=== PATIENT | male | born 1955 | race African-American/Black ===

== ENCOUNTER 2017-04-27 18:06 | Emergency (ER) | payer SELFPAY ==
[~2017-04-27] VITALS: Ht 172.7 cm; Wt 99.8 kg
[~2017-04-27 18:06] MED LIST: APIX5TAB PO; ASPI81 PO; ATOR20TA86 PO; FURO20 PO; METO25XL PO; PERCT PO
[2017-04-27] MEDS ORDERED: ATEN25TA PO (19:05)
[2017-04-27 21:07] LABS: BASOPHILS # (AUTO) 0.02 K/uL (0.00-0.20); BASOPHILS % (AUTO) 0.3 % (0.0-2.0); EOSINOPHILS # (AUTO) 0.12 K/uL (0.00-0.70); EOSINOPHILS % (AUTO) 1.55 % (1.0-6.0); HEMOGLOBIN 14.4 g/dL (13.5-17.5); LYMPHOCYTES # (AUTO) 2.2 K/uL (1.0-4.8); LYMPHOCYTES % (AUTO) 28.3 % (22.0-44.0); MEAN CORPUSCULAR HGB CONC 33.5 G/dL (31.0-37.0); MEAN CORPUSCULAR VOLUME 89 fL (80-100); MONOCYTES # (AUTO) 0.7 K/uL (0.1-1.0); MONOCYTES % (AUTO) 8.9 % (2.0-9.0); NEUTROPHILS # (AUTO) 4.7 K/uL (1.8-7.7); PLATELET COUNT (AUTO) 151 K/uL (150-450); RED BLOOD CELL COUNT(AUTO) 4.81 MIL/uL (4.50-5.90); RED CELL DISTRIBUTION WIDTH 15.8 % (11.5-14.5)
[2017-04-27 21:13] LABS: PROTHROMBIN TIME 10.1 SEC (9.4-11.6)
[2017-04-27 21:14] LABS: ANION GAP 8 mmol/L (8-16); CALCIUM, TOTAL 8.7 mg/dL (8.8-10.5); CARBON DIOXIDE 31 mmol/L (22-29); CHLORIDE 101 mmol/L (98-107); CREATININE 1.49 mg/dL (0.60-1.30); GLOMERULAR FILTR. RATE CALC 58 mL/min (>60); GLUCOSE,RANDOM 104 mg/dL (70-110); POTASSIUM 3.7 mmol/L (3.5-5.1); SODIUM SERUM 140 mmol/L (136-145); UREA NITROGEN, BLOOD 28 mg/dL (7-18)
[2017-04-27 21:40] LABS: ALANINE AMINOTRANSFERASE 131 U/L (12-78); ALBUMIN 3.4 g/dL (3.4-5.0); ALKALINE PHOSPHATASE 69 U/L (46-116); BILIRUBIN,TOTAL 0.4 mg/dL (0.1-1.0); CREATINE KINASE MB 1.2 ng/mL (0-5); CREATINE KINASE, TOTAL 121 U/L (39-308); TOTAL PROTEIN, SERUM 7.2 g/dL (6.4-8.2)
[2017-04-27 21:43] LABS: B-TYPE NATRIURETIC PEPTIDE 765 pg/mL (0-100)
[2017-04-27] MEDS ORDERED: FUROSEMIDE 40 MG/4 ML VIAL IVP ONE (21:45)
[2017-04-27] MEDS ORDERED: NITROGLYCERIN 2% (1 GM=INCH) PACKET TP ONE (21:45)
[2017-04-27 21:49] LABS: ASPARTATE AMINOTRANSFERASE 72 U/L (15-37)
[2017-04-27 22:55] LABS: APPEARANCE,URINE CLEAR (CLEAR); BILIRUBIN,URINE NEGATIVE (NEGATIVE); GLUCOSE, URINE (UA) NEGATIVE (NEGATIVE); KETONES,URINE NEGATIVE (NEGATIVE); LEUKOCYTE ESTERASE ,URINE NEGATIVE (NEGATIVE); NITRATE,URINE NEGATIVE (NEGATIVE); OCCULT BLOOD,URINE NEGATIVE (NEGATIVE); PROTEIN,URINE NEGATIVE (NEGATIVE); UROBILINOGEN,URINE 0.2 mg/dL (<=1.0)
[2017-04-28 00:44] VITALS: BP 126/73
== END 2017-04-28 00:53 | disposition home or self-care (01) ==
LOC: EMS 18:07
DX: I11.0 Hypertensive heart disease with heart failure (principal); I50.9 Heart failure, unspecified; E78.00 Pure hypercholesterolemia, unspecified; Z98.890 Other specified postprocedural states; Z79.82 Long term (current) use of aspirin; Z79.899 Other long term (current) drug therapy
CPT/HCPCS: 36415; 71010; 80053; 81003; 82550; 82553; 83880; 84484; 85025; 85610; 85730; 93005; 96374; 99285; J1940

== ENCOUNTER → 2017-12-11 | Outpatient (CLI) | payer OTHER ==
[~2017-12-11] MED LIST changes: -APIX5TAB PO; +ATEN25TA PO; -METO25XL PO
[2017-12-12 14:22] LABS: RUBEOLA (MEASLES) IGG >300.0 AU/mL (Immune >29.9)
[2017-12-13 18:07] LABS: RUBEOLA (MEASLES) IGM <0.80 AU (0.00-0.79)
== END | disposition home or self-care (01) ==
LOC: EMPHLTH 14:17
PROVIDERS: ATTEND Internal Medicine
DX: Z02.1 Encounter for pre-employment examination (principal)
CPT/HCPCS: 86706; 86735; 86762; 86765; 86787

== ENCOUNTER → 2018-02-14 | Outpatient (CLI) | payer OTHER ==
[2018-02-14 10:13] LABS: APPEARANCE,URINE CLEAR (CLEAR); BILIRUBIN,URINE NEGATIVE (NEGATIVE); GLUCOSE, URINE (UA) NEGATIVE (NEGATIVE); KETONES,URINE NEGATIVE (NEGATIVE); LEUKOCYTE ESTERASE ,URINE NEGATIVE (NEGATIVE); NITRATE,URINE NEGATIVE (NEGATIVE); OCCULT BLOOD,URINE NEGATIVE (NEGATIVE)
[2018-02-14 10:21] LABS: BASOPHILS % (AUTO) 0.3 % (0.0-2.0); EOSINOPHILS % (AUTO) 1.2 % (1.0-6.0); HEMATOCRIT 46.1 % (41-53); HEMOGLOBIN 15.4 g/dL (13.5-17.5); LYMPHOCYTES # (AUTO) 2.1 K/uL (1.0-4.8); LYMPHOCYTES % (AUTO) 26.8 % (22.0-44.0); MEAN CORPUSCULAR HEMOGLOBIN 30.6 pg (26.0-34.0); MEAN CORPUSCULAR HGB CONC 33.3 G/dL (31.0-37.0); MEAN CORPUSCULAR VOLUME 92 fL (80-100); MONOCYTES # (AUTO) 0.7 K/uL (0.1-1.0); MONOCYTES % (AUTO) 8.8 % (2.0-9.0); NEUTROPHILS % (AUTO) 62.9 % (40.0-70.0); RED BLOOD CELL COUNT(AUTO) 5.02 MIL/uL (4.50-5.90); RED CELL DISTRIBUTION WIDTH 16.7 % (11.5-14.5)
[2018-02-14 10:26] LABS: HEMOGLOBIN A1C 5.9 % (4.5-6.2)
[2018-02-14 10:31] LABS: PROTEIN,URINE NEGATIVE (NEGATIVE)
[2018-02-14 10:38] LABS: ALBUMIN 3.8 g/dL (3.4-5.0); BILIRUBIN,TOTAL 0.9 mg/dL (0.1-1.0); CALCIUM, TOTAL 8.8 mg/dL (8.8-10.5); CHOL/HDL RATIO 4.4 (4.2-7.3); CREATININE 1.48 mg/dL (0.60-1.30); POTASSIUM 4.1 mmol/L (3.5-5.1); THYROID STIMULATING HORMONE 6.46 uIU/mL (0.36-3.74); TOTAL PROTEIN, SERUM 8.5 g/dL (6.4-8.2)
[2018-02-14 10:45] LABS: PROSTATE SPECIFIC ANTIGEN 2.22 ng/mL (0.00-4.00)
[2018-02-14 10:50] LABS: URIC ACID 7.9 mg/dL (2.6-7.2)
== END | disposition home or self-care (01) ==
LOC: LABPV 07:53
PROVIDERS: ATTEND Internal Medicine
DX: I11.0 Hypertensive heart disease with heart failure (principal); I50.9 Heart failure, unspecified; R94.6 Abnormal results of thyroid function studies; E11.9 Type 2 diabetes mellitus without complications; M25.50 Pain in unspecified joint; E78.00 Pure hypercholesterolemia, unspecified
CPT/HCPCS: 83036; 84153; 84443; 84550

== ENCOUNTER → 2018-02-26 | Outpatient (CLI) | payer OTHER ==
[2018-02-26 10:29] LABS: INR 1.5 (0.9-1.1); PROTHROMBIN TIME 15.8 SEC (9.4-11.6)
== END | disposition home or self-care (01) ==
LOC: LABPV 09:37
PROVIDERS: ATTEND Internal Medicine
DX: Z51.81 Encounter for therapeutic drug level monitoring (principal)

== ENCOUNTER → 2018-03-11 | Outpatient (CLI) | payer OTHER ==
[2018-03-11 11:57] LABS: INR 2.5 (0.9-1.1); PROTHROMBIN TIME 25.2 SEC (9.4-11.6)
== END | disposition home or self-care (01) ==
LOC: LABPV 11:05
PROVIDERS: ATTEND Internal Medicine
DX: Z12.12 Encounter for screening for malignant neoplasm of rectum (principal); I48.1 Persistent atrial fibrillation; Z79.01 Long term (current) use of anticoagulants

== ENCOUNTER → 2018-04-15 | Outpatient (CLI) | payer OTHER ==
[2018-04-15 14:24] LABS: BASOPHILS % (AUTO) 0.4 % (0.0-2.0); EOSINOPHILS % (AUTO) 0.7 % (1.0-6.0); HEMATOCRIT 48.3 % (41-53); LYMPHOCYTES # (AUTO) 1.8 K/uL (1.0-4.8); LYMPHOCYTES % (AUTO) 19.4 % (22.0-44.0); MEAN CORPUSCULAR HEMOGLOBIN 30.6 pg (26.0-34.0); MEAN CORPUSCULAR HGB CONC 33.2 G/dL (31.0-37.0); MEAN CORPUSCULAR VOLUME 92 fL (80-100); MONOCYTES # (AUTO) 0.9 K/uL (0.1-1.0); MONOCYTES % (AUTO) 9.1 % (2.0-9.0); NEUTROPHILS # (AUTO) 6.6 K/uL (1.8-7.7); NEUTROPHILS % (AUTO) 70.4 % (40.0-70.0); PLATELET COUNT (AUTO) 152 K/uL (150-450); RED BLOOD CELL COUNT(AUTO) 5.23 MIL/uL (4.50-5.90); RED CELL DISTRIBUTION WIDTH 14.9 % (11.5-14.5)
[2018-04-15 14:36] LABS: INR 2.6 (0.9-1.1); PROTHROMBIN TIME 26.1 SEC (9.4-11.6)
[2018-04-15 14:51] LABS: ALBUMIN 3.8 g/dL (3.4-5.0); BILIRUBIN,TOTAL 0.8 mg/dL (0.1-1.0); C-REACTIVE PROTEIN QUANT 2.66 mg/dL (0.00-0.30); CALCIUM, TOTAL 8.9 mg/dL (8.8-10.5); CREATININE 1.63 mg/dL (0.60-1.30); POTASSIUM 4.4 mmol/L (3.5-5.1); THYROID STIMULATING HORMONE 2.69 uIU/mL (0.36-3.74); TOTAL PROTEIN, SERUM 8.9 g/dL (6.4-8.2)
[2018-04-15 14:56] LABS: APPEARANCE,URINE CLEAR (CLEAR); GLUCOSE, URINE (UA) NEGATIVE (NEGATIVE); KETONES,URINE TRACE mg/dL (NEGATIVE); LEUKOCYTE ESTERASE ,URINE NEGATIVE (NEGATIVE); NITRATE,URINE NEGATIVE (NEGATIVE); OCCULT BLOOD,URINE SMALL (NEGATIVE); PROTEIN,URINE SEE CONFIRM (NEGATIVE)
[2018-04-15 15:13] LABS: BILIRUBIN,URINE PRELIM. POSITIVE (NEGATIVE)
[2018-04-15 15:21] LABS: URIC ACID 9.2 mg/dL (2.6-7.2)
[2018-04-15 15:38] LABS: SULFOSALICYLIC ACID,URINE 2+ (Negative)
[2018-04-15 15:40] LABS: BACTERIA,URINE Few /HPF (None Seen); MUCUS,URINE Few LPF (None Seen); SQUAMOUS EPITHELIAL CELL,UR Few /LPF (None Seen); WBC,URINE 0-2 /HPF (0-5)
[2018-04-15 15:41] LABS: ERYTHROCYTE SEDIMENTATION RATE 34 MM/HR (0-15)
== END | disposition home or self-care (01) ==
LOC: MSR 11:34
PROVIDERS: ATTEND Internal Medicine
DX: E03.2 Hypothyroidism due to medicaments and other exogenous substances (principal); E78.5 Hyperlipidemia, unspecified; R79.89 Other specified abnormal findings of blood chemistry; I11.0 Hypertensive heart disease with heart failure; I50.22 Chronic systolic (congestive) heart failure; I82.409 Acute embolism and thrombosis of unspecified deep veins of unspecified lower extremity; M79.89 Other specified soft tissue disorders; R60.0 Localized edema
CPT/HCPCS: 84443; 84550; 85651; 86140; 93971

== ENCOUNTER → 2018-05-24 | Outpatient (CLI) | payer OTHER ==
[2018-05-24 10:50] LABS: BASOPHILS % (AUTO) 0.5 % (0.0-2.0); EOSINOPHILS % (AUTO) 0.9 % (1.0-6.0); HEMOGLOBIN 15.8 g/dL (13.5-17.5); LYMPHOCYTES % (AUTO) 27.6 % (22.0-44.0); MEAN CORPUSCULAR HEMOGLOBIN 29.9 pg (26.0-34.0); MEAN CORPUSCULAR VOLUME 91 fL (80-100); MONOCYTES # (AUTO) 0.6 K/uL (0.1-1.0); MONOCYTES % (AUTO) 7.8 % (2.0-9.0); NEUTROPHILS # (AUTO) 4.5 K/uL (1.8-7.7); NEUTROPHILS % (AUTO) 63.2 % (40.0-70.0); RED BLOOD CELL COUNT(AUTO) 5.29 MIL/uL (4.50-5.90); RED CELL DISTRIBUTION WIDTH 14.8 % (11.5-14.5)
[2018-05-24 10:54] LABS: APPEARANCE,URINE CLEAR (CLEAR); BILIRUBIN,URINE NEGATIVE (NEGATIVE); GLUCOSE, URINE (UA) NEGATIVE (NEGATIVE); KETONES,URINE NEGATIVE (NEGATIVE); LEUKOCYTE ESTERASE ,URINE NEGATIVE (NEGATIVE); NITRATE,URINE NEGATIVE (NEGATIVE); OCCULT BLOOD,URINE NEGATIVE (NEGATIVE); PROTEIN,URINE POS 1+ (NEGATIVE)
[2018-05-24 11:01] LABS: INR 2.8 (0.9-1.1); PROTHROMBIN TIME 28.1 SEC (9.4-11.6)
[2018-05-24 11:14] LABS: ALANINE AMINOTRANSFERASE 33 U/L (12-78); ALBUMIN 3.4 g/dL (3.4-5.0); ALKALINE PHOSPHATASE 69 U/L (46-116); ANION GAP 4 mmol/L (8-16); ASPARTATE AMINOTRANSFERASE 28 U/L (15-37); BILIRUBIN,TOTAL 0.7 mg/dL (0.1-1.0); C-REACTIVE PROTEIN QUANT 0.29 mg/dL (0.00-0.30); CARBON DIOXIDE 34 mmol/L (22-29); CHLORIDE 105 mmol/L (98-107); CHOL/HDL RATIO 3.3 (4.2-7.3); CHOLESTEROL 139 mg/dL (131-200); CREATININE 1.22 mg/dL (0.60-1.30); GLOMERULAR FILTR. RATE CALC > 60 mL/min (>60); GLUCOSE,RANDOM 96 mg/dL (70-110); HDL CHOLESTEROL 42 mg/dL (40-60); LDL CHOL (CALC.) 73 mg/dL (0-130); POTASSIUM 4.2 mmol/L (3.5-5.1); SODIUM SERUM 143 mmol/L (136-145); THYROID STIMULATING HORMONE 3.83 uIU/mL (0.36-3.74); TOTAL PROTEIN, SERUM 7.8 g/dL (6.4-8.2); TRIGLYCERIDES 122 mg/dL (15-150); UREA NITROGEN, BLOOD 20 mg/dL (7-18)
[2018-05-24 11:36] LABS: PLATELET COUNT (AUTO) 201 K/uL (150-450); PLATELET MORPHOLOGY COMMENT GIANT PLTS PRESENT
[2018-05-24 11:59] LABS: ERYTHROCYTE SEDIMENTATION RATE 12 MM/HR (0-15)
[2018-05-24 12:35] LABS: BACTERIA,URINE None Seen /HPF (None Seen); RBC,URINE 0-2 /HPF (0-2); SQUAMOUS EPITHELIAL CELL,UR Few /LPF (None Seen); WBC,URINE 0-2 /HPF (0-5)
[2018-05-24 17:55] LABS: URIC ACID 7.7 mg/dL (2.6-7.2)
== END | disposition home or self-care (01) ==
LOC: LABPV 08:09
PROVIDERS: ATTEND Internal Medicine
DX: I13.0 Hypertensive heart and chronic kidney disease with heart failure and stage 1 through stage 4 chronic kidney disease, or unspecified chronic kidney disease (principal); N18.9 Chronic kidney disease, unspecified; I50.22 Chronic systolic (congestive) heart failure; Z79.01 Long term (current) use of anticoagulants; E03.2 Hypothyroidism due to medicaments and other exogenous substances
CPT/HCPCS: 84443; 84550; 85651; 86140

== ENCOUNTER → 2018-07-04 | Outpatient (CLI) | payer OTHER ==
[2018-07-04 14:07] LABS: INR 3.4 (0.9-1.1); PROTHROMBIN TIME 34.1 SEC (9.4-11.6)
[2018-07-04 14:10] LABS: ALANINE AMINOTRANSFERASE 44 U/L (12-78); ALBUMIN 3.4 g/dL (3.4-5.0); ALKALINE PHOSPHATASE 78 U/L (46-116); ANION GAP 8 mmol/L (8-16); ASPARTATE AMINOTRANSFERASE 27 U/L (15-37); BILIRUBIN,TOTAL 0.5 mg/dL (0.1-1.0); CALCIUM, TOTAL 8.6 mg/dL (8.8-10.5); CARBON DIOXIDE 29 mmol/L (22-29); CHLORIDE 108 mmol/L (98-107); CREATININE 1.43 mg/dL (0.60-1.30); GLOMERULAR FILTR. RATE CALC > 60 mL/min (>60); GLUCOSE,RANDOM 94 mg/dL (70-110); POTASSIUM 4.3 mmol/L (3.5-5.1); SODIUM SERUM 145 mmol/L (136-145); TOTAL PROTEIN, SERUM 7.5 g/dL (6.4-8.2); UREA NITROGEN, BLOOD 30 mg/dL (7-18)
== END | disposition home or self-care (01) ==
LOC: LABPV 13:31
PROVIDERS: ATTEND Internal Medicine
DX: E78.5 Hyperlipidemia, unspecified (principal); I48.1 Persistent atrial fibrillation

== ENCOUNTER → 2018-07-25 | Outpatient (CLI) | payer OTHER ==
[2018-07-25 11:23] LABS: PROTHROMBIN TIME 20.2 SEC (9.4-11.6)
[2018-07-25 11:25] LABS: ALANINE AMINOTRANSFERASE 25 U/L (12-78); ALBUMIN 3.6 g/dL (3.4-5.0); ALKALINE PHOSPHATASE 63 U/L (46-116); ANION GAP 10 mmol/L (8-16); ASPARTATE AMINOTRANSFERASE 26 U/L (15-37); BILIRUBIN,TOTAL 0.7 mg/dL (0.1-1.0); CALCIUM, TOTAL 9.3 mg/dL (8.8-10.5); CARBON DIOXIDE 28 mmol/L (22-29); CHLORIDE 105 mmol/L (98-107); GLOMERULAR FILTR. RATE CALC > 60 mL/min (>60); GLUCOSE,RANDOM 102 mg/dL (70-110); POTASSIUM 4.2 mmol/L (3.5-5.1); SODIUM SERUM 143 mmol/L (136-145); TOTAL PROTEIN, SERUM 7.9 g/dL (6.4-8.2); UREA NITROGEN, BLOOD 18 mg/dL (7-18)
== END | disposition home or self-care (01) ==
LOC: LABPV 08:56
PROVIDERS: ATTEND Internal Medicine
DX: I48.1 Persistent atrial fibrillation (principal); R79.89 Other specified abnormal findings of blood chemistry; I13.0 Hypertensive heart and chronic kidney disease with heart failure and stage 1 through stage 4 chronic kidney disease, or unspecified chronic kidney disease; E11.22 Type 2 diabetes mellitus with diabetic chronic kidney disease; N18.9 Chronic kidney disease, unspecified; I50.22 Chronic systolic (congestive) heart failure; Z79.01 Long term (current) use of anticoagulants

== ENCOUNTER → 2018-09-19 | Outpatient (CLI) | payer OTHER ==
[2018-09-19 09:44] LABS: INR 2.9 (0.9-1.1); PROTHROMBIN TIME 28.9 SEC (9.4-11.6)
== END | disposition home or self-care (01) ==
LOC: MSR 08:39
PROVIDERS: ATTEND Internal Medicine
DX: M17.11 Unilateral primary osteoarthritis, right knee (principal); Z79.01 Long term (current) use of anticoagulants

== ENCOUNTER 2019-03-13 09:44 | Inpatient (IN) | payer OTHER ==
[~2019-03-13] VITALS: Ht 175.3 cm; Wt 97.2 kg
[2019-03-13] MEDS ORDERED: WARF5 PO (10:00)
[2019-03-13] MEDS ORDERED: LEVO50 PO (10:00)
[2019-03-13] MEDS ORDERED: AMLO2.5T4 PO (10:00)
[2019-03-13] MEDS ORDERED: METO25 PO (10:00)
[2019-03-13] MEDS ORDERED: LOSA25TA41 PO (10:00)
[2019-03-13 11:08] LABS: BASOPHILS % (AUTO) 0.5 % (0.0-2.0); EOSINOPHILS % (AUTO) 0 % (1.0-6.0); HEMATOCRIT 45.5 % (41-53); HEMOGLOBIN 14.9 g/dL (13.5-17.5); LYMPHOCYTES # (AUTO) 0.5 K/uL (1.0-4.8); LYMPHOCYTES % (AUTO) 3.3 % (22.0-44.0); MEAN CORPUSCULAR HEMOGLOBIN 29.7 pg (26.0-34.0); MEAN CORPUSCULAR HGB CONC 32.7 G/dL (31.0-37.0); MEAN CORPUSCULAR VOLUME 91 fL (80-100); MONOCYTES # (AUTO) 0.5 K/uL (0.1-1.0); MONOCYTES % (AUTO) 3.3 % (2.0-9.0); NEUTROPHILS # (AUTO) 14.6 K/uL (1.8-7.7); RED BLOOD CELL COUNT(AUTO) 5.01 MIL/uL (4.50-5.90); RED CELL DISTRIBUTION WIDTH 15.4 % (11.5-14.5)
[2019-03-13] MEDS ORDERED: SODIUM CHLORIDE 0.9% 2,000 ML IV ONE (11:15)
[2019-03-13 11:22] LABS: NEUTROPHILS % (AUTO) 92.9 % (40.0-70.0)
[2019-03-13] MEDS ORDERED: DILTIAZEM HCL 5 MG/ML 5 ML VIAL IVP ONE (11:30)
[2019-03-13] MEDS ORDERED: DIGOXIN 250 MCG/ML 2 ML AMP IVP ONE ×2 (11:30→15:45)
[2019-03-13] MEDS ORDERED: VANCOMYCIN HCL 1 GM/D5% WATER 200 ML IV ONE (11:30)
[2019-03-13 11:41] LABS: ANION GAP 10 mmol/L (8-16); CALCIUM, TOTAL 8.3 mg/dL (8.8-10.5); CARBON DIOXIDE 27 mmol/L (22-29); CHLORIDE 100 mmol/L (98-107); CREATININE 2.27 mg/dL (0.60-1.30); GLOMERULAR FILTR. RATE CALC 35 mL/min (>60); GLUCOSE,RANDOM 125 mg/dL (70-110); POTASSIUM 3.5 mmol/L (3.5-5.1); SODIUM SERUM 137 mmol/L (136-145)
[2019-03-13] MEDS ORDERED: ACETAMINOPHEN 500 MG TABLET PO ONE (11:45)
[2019-03-13 11:46] LABS: ALANINE AMINOTRANSFERASE 25 U/L (12-78); ALBUMIN 2.7 g/dL (3.4-5.0); ALKALINE PHOSPHATASE 55 U/L (46-116); ASPARTATE AMINOTRANSFERASE 31 U/L (15-37); BILIRUBIN,TOTAL 1.5 mg/dL (0.1-1.0); LIPASE 67 U/L (73-393); TOTAL PROTEIN, SERUM 7.7 g/dL (6.4-8.2); UREA NITROGEN, BLOOD 31 mg/dL (7-18)
[2019-03-13 11:47] LABS: INR 1.2 (0.9-1.1); PROTHROMBIN TIME 12.4 SEC (9.4-11.6)
[2019-03-13 11:49] LABS: B-TYPE NATRIURETIC PEPTIDE 223 pg/mL (0-100)
[2019-03-13 11:51] LABS: LACTIC ACID 2.5 mmol/L (0.4-2.0); PLATELET COUNT (AUTO) 103 K/uL (150-450)
[2019-03-13] MEDS ORDERED: ACETAMINOPHEN 325 MG TABLET PO PRN (13:15)
[2019-03-13] MEDS ORDERED: METOPROLOL TARTRATE 50 MG TABLET PO ONE (13:15)
[2019-03-13] MEDS ORDERED: NITROGLYCERIN 2% (1 GM=INCH) PACKET TP ONE (13:15)
[2019-03-13] MEDS ORDERED: 0.9% SODIUM CHLORIDE 10 ML SYRINGE IVP PRN (13:15)
[2019-03-13] MEDS ORDERED: ONDANSETRON HCL 4 MG/2 ML VIAL IVP PRN (13:15)
[2019-03-13] MEDS ORDERED: PIPERACILLIN/TAZO 3.375 GM/D5W 50 ML IV ONE (13:15)
[2019-03-13 13:24] LABS: APPEARANCE,URINE CLEAR (CLEAR); BILIRUBIN,URINE NEGATIVE (NEGATIVE); GLUCOSE, URINE (UA) NEGATIVE (NEGATIVE); KETONES,URINE NEGATIVE (NEGATIVE); LEUKOCYTE ESTERASE ,URINE NEGATIVE (NEGATIVE); NITRATE,URINE NEGATIVE (NEGATIVE); PH,URINE 5.5 (5.0-8.0); PROTEIN,URINE SEE CONFIRM (NEGATIVE)
[2019-03-13 13:29] LABS: BACTERIA,URINE None Seen /HPF (None Seen); OCCULT BLOOD,URINE SMALL (NEGATIVE); SQUAMOUS EPITHELIAL CELL,UR Rare /LPF (None Seen); SULFOSALICYLIC ACID,URINE 2+ (Negative); WBC,URINE None Seen /HPF (0-5)
[2019-03-13] MEDS ORDERED: METOPROLOL TARTRATE 5 MG/5 ML VIAL IVP ONE ×2 (15:45→18:00)
[2019-03-13] MEDS ORDERED: SODIUM BICARBONATE [ADULT] 8.4% 50 MEQ/50 ML SYRINGE IVP ONE (15:45)
[2019-03-13] MEDS ORDERED: LABETALOL HCL 5 MG/ML 20 ML VIAL IVP ONE (15:45)
[2019-03-13] MEDS ORDERED: SODIUM CHLORIDE 0.9% 1,000 ML IV ONE (16:15)
[2019-03-13] MEDS ORDERED: VECURONIUM BROMIDE 10 MG/VIAL IV ONE (18:13)
[2019-03-13] MEDS ORDERED: DILTIAZEM HCL 60 MG TABLET PO ONE (18:15)
[2019-03-13] MEDS ORDERED: *CLINICAL-WARFARIN SODIUM DOSING CLINICAL ONE (19:30)
[2019-03-13] MEDS ORDERED: ALBUTEROL SULFATE 2.5 MG/0.5 ML NEB SOLUTION NEB PRN ×2 (19:30)
[2019-03-13] MEDS ORDERED: IPRATROPIUM BROMIDE 0.5 MG/2.5 ML NEB SOLUTION NEB PRN ×2 (19:30)
[2019-03-13 19:44] VITALS: BP 152/111
[2019-03-13] MEDS ORDERED: IPRATROPIUM BROMIDE 0.5 MG/2.5 ML NEB SOLUTION NEB SCH (20:00)
[2019-03-13] MEDS ORDERED: ALBUTEROL SULFATE 2.5 MG/0.5 ML NEB SOLUTION NEB SCH (20:00)
[2019-03-13] MEDS ORDERED: WARFARIN SODIUM 5 MG TABLET PO SCH (21:00)
[2019-03-13] MEDS: ALBUTEROL SULFATE 2.5 MG/0.5 ML NEB SOLUTION NEB SCH (21:36)
[2019-03-13] MEDS: IPRATROPIUM BROMIDE 0.5 MG/2.5 ML NEB SOLUTION NEB SCH (21:36)
[2019-03-13] MEDS ORDERED: SODIUM CHLORIDE 0.9% 250 ML IV ONE (22:38)
[2019-03-13] MEDS: PIPERACILLIN/TAZO 3.375 GM/D5W 50 ML IV SCH (22:46)
[2019-03-13] MEDS: MORPHINE SULFATE 2 MG/ML SYRINGE IVP PRN (23:15)
[2019-03-14 00:09] VITALS: BP 155/78
[2019-03-14] MEDS: IPRATROPIUM BROMIDE 0.5 MG/2.5 ML NEB SOLUTION NEB SCH ×4 (01:19→21:18)
[2019-03-14] MEDS: ALBUTEROL SULFATE 2.5 MG/0.5 ML NEB SOLUTION NEB SCH ×4 (01:19→21:18)
[2019-03-14] MEDS: PIPERACILLIN/TAZO 3.375 GM/D5W 50 ML IV SCH ×2 (04:39→10:05)
[2019-03-14] MEDS: MORPHINE SULFATE 2 MG/ML SYRINGE IVP PRN ×2 (04:46→10:17)
[2019-03-14] MEDS: LEVOTHYROXINE SODIUM 100 MCG TABLET PO SCH (06:19)
[2019-03-14 06:23] VITALS: BP 131/82
[2019-03-14 07:50] LABS: BASOPHILS % (AUTO) 0.5 % (0.0-2.0); EOSINOPHILS % (AUTO) 0.1 % (1.0-6.0); HEMATOCRIT 39.1 % (41-53); HEMOGLOBIN 12.8 g/dL (13.5-17.5); LYMPHOCYTES # (AUTO) 0.6 K/uL (1.0-4.8); LYMPHOCYTES % (AUTO) 5.4 % (22.0-44.0); MEAN CORPUSCULAR HEMOGLOBIN 30.1 pg (26.0-34.0); MEAN CORPUSCULAR HGB CONC 32.8 G/dL (31.0-37.0); MEAN CORPUSCULAR VOLUME 92 fL (80-100); MONOCYTES # (AUTO) 0.6 K/uL (0.1-1.0); MONOCYTES % (AUTO) 5.5 % (2.0-9.0); NEUTROPHILS # (AUTO) 10.2 K/uL (1.8-7.7); RED BLOOD CELL COUNT(AUTO) 4.26 MIL/uL (4.50-5.90); RED CELL DISTRIBUTION WIDTH 15.8 % (11.5-14.5)
[2019-03-14 07:52] VITALS: BP 141/95
[2019-03-14 07:54] LABS: NEUTROPHILS % (AUTO) 88.5 % (40.0-70.0); PLATELET COUNT (AUTO) 100 K/uL (150-450)
[2019-03-14 07:58] LABS: CREATININE 1.57 mg/dL (0.60-1.30); MAGNESIUM 1.6 mg/dL (1.80-2.40); POTASSIUM 3.7 mmol/L (3.5-5.1)
[2019-03-14] MEDS ORDERED: VANCOMYCIN HCL 1.25 GM in DEXTROSE 5%-WATER 250 ML IV SCH (08:00)
[2019-03-14 08:05] LABS: INR 1.1 (0.9-1.1); PROTHROMBIN TIME 11.4 SEC (9.4-11.6)
[2019-03-14] MEDS ORDERED: LOSARTAN POTASSIUM 25 MG TABLET PO SCH (09:00)
[2019-03-14] MEDS: ATORVASTATIN CALCIUM 20 MG TABLET PO SCH (10:05)
[2019-03-14] MEDS: METOPROLOL TARTRATE 25 MG TABLET PO SCH (10:05)
[2019-03-14] MEDS: AmLODIPine BESYLATE 2.5 MG TABLET PO SCH (10:05)
[2019-03-14] MEDS: ASPIRIN 81 MG CHEWABLE TABLET PO SCH (10:05)
[2019-03-14] MEDS ORDERED: WARFARIN SODIUM-INR 2.0-3.0-RX DOSING PER PROTOCOL PO PRN (11:15)
[2019-03-14 11:24] VITALS: BP 147/90
[2019-03-14] MEDS ORDERED: ZOLPIDEM TARTRATE 5 MG TABLET PO PRN (11:30)
[2019-03-14] MEDS ORDERED: MAGNESIUM HYDROXIDE SUSPENSION 30 ML UDCUP PO PRN (11:30)
[2019-03-14] MEDS ORDERED: BISACODYL 10 MG RECTAL RECTAL SUPPOSITORY PR PRN (11:30)
[2019-03-14] MEDS ORDERED: MAGNESIUM OXIDE 400 MG TABLET PO ONE (11:30)
[2019-03-14] MEDS ORDERED: ONDANSETRON HCL 4 MG/2 ML VIAL IVP PRN (11:30)
[2019-03-14] MEDS: ACETAMINOPHEN 325 MG TABLET PO PRN ×2 (11:36→20:28)
[2019-03-14] MEDS ORDERED: SODIUM CHLORIDE 0.9% 1,000 ML IV ONE (11:45)
[2019-03-14] MEDS: CefTRIAXone SODIUM 2 GM in DEXTROSE 5%-WATER 50 ML IV SCH (15:26)
[2019-03-14] MEDS ORDERED: WARFARIN SODIUM 7.5 MG TABLET PO SCH (17:00)
[2019-03-14] MEDS: CLINDAMYCIN 900 MG/D5% WATER 50 ML IV SCH ×2 (17:44→23:19)
[2019-03-14 19:53] VITALS: BP 153/92
[2019-03-14] MEDS: DOCUSATE SODIUM 100 MG CAPSULE PO SCH (20:28)
[2019-03-14] MEDS: VANCOMYCIN HCL 1 GM/D5% WATER 200 ML IV SCH (20:30)
[2019-03-14 23:17] VITALS: BP 142/84
[2019-03-15] MEDS: ALBUTEROL SULFATE 2.5 MG/0.5 ML NEB SOLUTION NEB SCH ×4 (02:37→19:52)
[2019-03-15] MEDS: IPRATROPIUM BROMIDE 0.5 MG/2.5 ML NEB SOLUTION NEB SCH ×4 (02:37→19:52)
[2019-03-15] MEDS: CefTRIAXone SODIUM 2 GM in DEXTROSE 5%-WATER 50 ML IV SCH (03:12)
[2019-03-15] MEDS: HYDROCODONE/ACETAMINOPHEN 5-325 MG TABLET PO PRN (03:12)
[2019-03-15 04:25] VITALS: BP 133/76
[2019-03-15] MEDS ORDERED: DIGOXIN 250 MCG/ML 2 ML AMP IVP ONE (04:30)
[2019-03-15] MEDS: MORPHINE SULFATE 2 MG/ML SYRINGE IVP PRN (05:46)
[2019-03-15] MEDS: LEVOTHYROXINE SODIUM 100 MCG TABLET PO SCH (06:46)
[2019-03-15] MEDS: CLINDAMYCIN 900 MG/D5% WATER 50 ML IV SCH ×2 (07:33→15:06)
[2019-03-15 08:00] VITALS: BP 158/104
[2019-03-15] MEDS: PANTOPRAZOLE SODIUM 40 MG DR TABLET PO SCH (08:40)
[2019-03-15] MEDS: AmLODIPine BESYLATE 2.5 MG TABLET PO SCH (08:40)
[2019-03-15] MEDS: DOCUSATE SODIUM 100 MG CAPSULE PO SCH ×2 (08:40→21:00)
[2019-03-15] MEDS: VANCOMYCIN HCL 1 GM/D5% WATER 200 ML IV SCH (08:40)
[2019-03-15] MEDS: ASPIRIN 81 MG CHEWABLE TABLET PO SCH (08:41)
[2019-03-15] MEDS: METOPROLOL TARTRATE 25 MG TABLET PO SCH (08:41)
[2019-03-15] MEDS: ATORVASTATIN CALCIUM 20 MG TABLET PO SCH (08:41)
[2019-03-15 09:31] LABS: BASOPHILS % (AUTO) 0.5 % (0.0-2.0); EOSINOPHILS % (AUTO) 1.2 % (1.0-6.0); HEMATOCRIT 37.5 % (41-53); HEMOGLOBIN 12.5 g/dL (13.5-17.5); LYMPHOCYTES # (AUTO) 0.6 K/uL (1.0-4.8); LYMPHOCYTES % (AUTO) 6.6 % (22.0-44.0); MEAN CORPUSCULAR HEMOGLOBIN 30.1 pg (26.0-34.0); MEAN CORPUSCULAR HGB CONC 33.2 G/dL (31.0-37.0); MEAN CORPUSCULAR VOLUME 91 fL (80-100); MONOCYTES # (AUTO) 0.9 K/uL (0.1-1.0); MONOCYTES % (AUTO) 9.2 % (2.0-9.0); NEUTROPHILS # (AUTO) 8.1 K/uL (1.8-7.7); NEUTROPHILS % (AUTO) 82.5 % (40.0-70.0); PLATELET COUNT (AUTO) 148 K/uL (150-450); RED BLOOD CELL COUNT(AUTO) 4.15 MIL/uL (4.50-5.90); RED CELL DISTRIBUTION WIDTH 15.9 % (11.5-14.5)
[2019-03-15 09:41] LABS: INR 1.8 (0.9-1.1); PROTHROMBIN TIME 18.7 SEC (9.4-11.6)
[2019-03-15 09:44] LABS: ALANINE AMINOTRANSFERASE 23 U/L (12-78); ALBUMIN 1.9 g/dL (3.4-5.0); ALKALINE PHOSPHATASE 61 U/L (46-116); ANION GAP 8 mmol/L (8-16); ASPARTATE AMINOTRANSFERASE 28 U/L (15-37); BILIRUBIN,TOTAL 0.4 mg/dL (0.1-1.0); CALCIUM, TOTAL 7.7 mg/dL (8.8-10.5); CARBON DIOXIDE 27 mmol/L (22-29); CHLORIDE 101 mmol/L (98-107); CREATININE 1.22 mg/dL (0.60-1.30); GLOMERULAR FILTR. RATE CALC > 60 mL/min (>60); GLUCOSE,RANDOM 132 mg/dL (70-110); POTASSIUM 3.6 mmol/L (3.5-5.1); SODIUM SERUM 136 mmol/L (136-145); TOTAL PROTEIN, SERUM 6.5 g/dL (6.4-8.2); UREA NITROGEN, BLOOD 9 mg/dL (7-18)
[2019-03-15] MEDS ORDERED: SODIUM CHLORIDE 0.9% 1,000 ML IV SCH (10:00)
[2019-03-15] MEDS ORDERED: MAGNESIUM SULFATE 2 GM/WATER 50 ML IV PRN (10:00)
[2019-03-15] MEDS ORDERED: MAGNESIUM SULFATE 4 GM/WATER 100 ML IV PRN (10:00)
[2019-03-15] MEDS ORDERED: SODIUM CHLORIDE 0.9% 1,000 ML IV ONE (10:15)
[2019-03-15] MEDS: MAGNESIUM OXIDE 400 MG TABLET PO PRN ×2 (10:52→15:06)
[2019-03-15 11:21] VITALS: BP 130/75
[2019-03-15 11:40] LABS: C-REACTIVE PROTEIN QUANT 19.33 mg/dL (0.00-0.30)
[2019-03-15] MEDS: PENICILLIN G POTASSIUM 4 MILUNITS in DEXTROSE 5%-WATER 100 ML IV SCH ×3 (12:43→21:04)
[2019-03-15 12:45] VITALS: BP 140/82
[2019-03-15] MEDS: METOPROLOL SUCCINATE 50 MG ER TABLET PO SCH (12:49)
[2019-03-15 15:54] VITALS: BP 155/86
[2019-03-15] MEDS ORDERED: WARFARIN SODIUM 2 MG TABLET PO SCH (17:00)
[2019-03-15 20:23] VITALS: BP 136/71
[2019-03-16 00:30] VITALS: BP 151/94
[2019-03-16] MEDS: CLINDAMYCIN 900 MG/D5% WATER 50 ML IV SCH ×4 (00:52→23:19)
[2019-03-16] MEDS: MAGNESIUM OXIDE 400 MG TABLET PO PRN (00:52)
[2019-03-16] MEDS: ACETAMINOPHEN 325 MG TABLET PO PRN ×2 (00:54→20:17)
[2019-03-16] MEDS: PENICILLIN G POTASSIUM 4 MILUNITS in DEXTROSE 5%-WATER 100 ML IV SCH ×6 (01:39→20:16)
[2019-03-16] MEDS: ALBUTEROL SULFATE 2.5 MG/0.5 ML NEB SOLUTION NEB SCH ×4 (02:29→19:46)
[2019-03-16] MEDS: IPRATROPIUM BROMIDE 0.5 MG/2.5 ML NEB SOLUTION NEB SCH ×4 (02:30→19:46)
[2019-03-16 04:30] VITALS: BP 139/98
[2019-03-16] MEDS: LEVOTHYROXINE SODIUM 100 MCG TABLET PO SCH (06:57)
[2019-03-16 08:05] LABS: INR 2.1 (0.9-1.1); PROTHROMBIN TIME 21.4 SEC (9.4-11.6)
[2019-03-16 08:16] LABS: ANION GAP 8 mmol/L (8-16); CALCIUM, TOTAL 8.2 mg/dL (8.8-10.5); CARBON DIOXIDE 30 mmol/L (22-29); CHLORIDE 100 mmol/L (98-107); CREATININE 1.14 mg/dL (0.60-1.30); GLOMERULAR FILTR. RATE CALC > 60 mL/min (>60); GLUCOSE,RANDOM 94 mg/dL (70-110); POTASSIUM 3.5 mmol/L (3.5-5.1); SODIUM SERUM 138 mmol/L (136-145)
[2019-03-16 08:34] LABS: UREA NITROGEN, BLOOD 9 mg/dL (7-18)
[2019-03-16] MEDS ORDERED: METOPROLOL TARTRATE 25 MG TABLET PO SCH (09:00)
[2019-03-16] MEDS: DOCUSATE SODIUM 100 MG CAPSULE PO SCH ×2 (09:00→20:12)
[2019-03-16] MEDS: ATORVASTATIN CALCIUM 20 MG TABLET PO SCH (09:06)
[2019-03-16] MEDS: METOPROLOL SUCCINATE 50 MG ER TABLET PO SCH (09:06)
[2019-03-16] MEDS: ASPIRIN 81 MG CHEWABLE TABLET PO SCH (09:06)
[2019-03-16] MEDS: PANTOPRAZOLE SODIUM 40 MG DR TABLET PO SCH (09:06)
[2019-03-16 09:29] VITALS: BP 162/98
[2019-03-16] MEDS: AmLODIPine BESYLATE 2.5 MG TABLET PO SCH ×2 (14:23→20:16)
[2019-03-16] MEDS: LISINOPRIL 10 MG TABLET PO SCH (14:23)
[2019-03-16 16:06] VITALS: BP 158/99
[2019-03-16] MEDS ORDERED: WARFARIN SODIUM 3 MG TABLET PO ONE (17:00)
[2019-03-16 19:42] VITALS: BP 156/97
[2019-03-16 23:42] VITALS: BP 146/98
[2019-03-17] MEDS: PENICILLIN G POTASSIUM 4 MILUNITS in DEXTROSE 5%-WATER 100 ML IV SCH ×6 (01:31→20:11)
[2019-03-17] MEDS: MORPHINE SULFATE 2 MG/ML SYRINGE IVP PRN (01:40)
[2019-03-17] MEDS: IPRATROPIUM BROMIDE 0.5 MG/2.5 ML NEB SOLUTION NEB SCH ×4 (02:31→19:44)
[2019-03-17] MEDS: ALBUTEROL SULFATE 2.5 MG/0.5 ML NEB SOLUTION NEB SCH ×4 (02:31→19:44)
[2019-03-17] MEDS: LEVOTHYROXINE SODIUM 100 MCG TABLET PO SCH (05:22)
[2019-03-17 07:03] VITALS: BP 165/98
[2019-03-17] MEDS: DOCUSATE SODIUM 100 MG CAPSULE PO SCH ×2 (09:00→20:11)
[2019-03-17] MEDS: LISINOPRIL 10 MG TABLET PO SCH (09:10)
[2019-03-17] MEDS: PANTOPRAZOLE SODIUM 40 MG DR TABLET PO SCH (09:11)
[2019-03-17] MEDS: ASPIRIN 81 MG CHEWABLE TABLET PO SCH (09:11)
[2019-03-17] MEDS: ATORVASTATIN CALCIUM 20 MG TABLET PO SCH (09:11)
[2019-03-17] MEDS: AmLODIPine BESYLATE 2.5 MG TABLET PO SCH ×2 (09:11→20:11)
[2019-03-17] MEDS: METOPROLOL SUCCINATE 50 MG ER TABLET PO SCH (09:11)
[2019-03-17] MEDS: CLINDAMYCIN 900 MG/D5% WATER 50 ML IV SCH ×3 (09:12→23:22)
[2019-03-17 09:38] VITALS: BP 160/110
[2019-03-17 10:49] LABS: BASOPHILS % (AUTO) 0.7 % (0.0-2.0); HEMATOCRIT 39.2 % (41-53); HEMOGLOBIN 13.1 g/dL (13.5-17.5); LYMPHOCYTES % (AUTO) 8.4 % (22.0-44.0); MEAN CORPUSCULAR HEMOGLOBIN 30.2 pg (26.0-34.0); MEAN CORPUSCULAR HGB CONC 33.3 G/dL (31.0-37.0); MEAN CORPUSCULAR VOLUME 91 fL (80-100); MONOCYTES % (AUTO) 7.8 % (2.0-9.0); NEUTROPHILS # (AUTO) 9.8 K/uL (1.8-7.7); NEUTROPHILS % (AUTO) 81.1 % (40.0-70.0); PLATELET COUNT (AUTO) 176 K/uL (150-450); RED BLOOD CELL COUNT(AUTO) 4.33 MIL/uL (4.50-5.90); RED CELL DISTRIBUTION WIDTH 15.6 % (11.5-14.5)
[2019-03-17 11:09] LABS: ALANINE AMINOTRANSFERASE 31 U/L (12-78); ALBUMIN 1.9 g/dL (3.4-5.0); ALKALINE PHOSPHATASE 75 U/L (46-116); ANION GAP 8 mmol/L (8-16); ASPARTATE AMINOTRANSFERASE 39 U/L (15-37); BILIRUBIN,TOTAL 0.5 mg/dL (0.1-1.0); C-REACTIVE PROTEIN QUANT 14.96 mg/dL (0.00-0.30); CALCIUM, TOTAL 8.2 mg/dL (8.8-10.5); CARBON DIOXIDE 29 mmol/L (22-29); CHLORIDE 103 mmol/L (98-107); CREATININE 0.94 mg/dL (0.60-1.30); GLOMERULAR FILTR. RATE CALC > 60 mL/min (>60); GLUCOSE,RANDOM 115 mg/dL (70-110); SODIUM SERUM 140 mmol/L (136-145); TOTAL PROTEIN, SERUM 6.9 g/dL (6.4-8.2); UREA NITROGEN, BLOOD 9 mg/dL (7-18)
[2019-03-17 11:15] LABS: INR 1.8 (0.9-1.1); PROTHROMBIN TIME 17.8 SEC (9.4-11.6)
[2019-03-17] MEDS ORDERED: GADOBUTROL 1 MMOL/ML 10 ML VIAL IVP ONE (11:44)
[2019-03-17] MEDS ORDERED: WARFARIN SODIUM 2 MG TABLET PO ONE (17:00)
[2019-03-17 17:16] VITALS: BP 168/117
[2019-03-17] MEDS ORDERED: SODIUM CHLORIDE 0.9% 250 ML IV ONE ×2 (17:20→23:12)
[2019-03-17] MEDS ORDERED: METO-391 PO (17:48)
[2019-03-17] MEDS ORDERED: FURO40TA5 PO (17:48)
[2019-03-17] MEDS ORDERED: ATOR40TA28 PO (17:48)
[2019-03-17] MEDS ORDERED: LOSA50TA64 PO (17:48)
[2019-03-17] MEDS ORDERED: HYDR-4174 PO (17:48)
[2019-03-17 20:10] VITALS: BP 152/88
[2019-03-17] MEDS: ACETAMINOPHEN 325 MG TABLET PO PRN (20:11)
[2019-03-17] MEDS: HYDROCODONE/ACETAMINOPHEN 5-325 MG TABLET PO PRN (22:14)
[2019-03-18] VITALS (8 sets, daily range): BP systolic 118–162; BP diastolic 83–125
[2019-03-18] MEDS: PENICILLIN G POTASSIUM 4 MILUNITS in DEXTROSE 5%-WATER 100 ML IV SCH ×6 (00:23→20:52)
[2019-03-18] MEDS: ALBUTEROL SULFATE 2.5 MG/0.5 ML NEB SOLUTION NEB SCH ×4 (02:33→20:32)
[2019-03-18] MEDS: IPRATROPIUM BROMIDE 0.5 MG/2.5 ML NEB SOLUTION NEB SCH ×4 (02:33→20:31)
[2019-03-18] MEDS: ACETAMINOPHEN 325 MG TABLET PO PRN ×3 (02:48→20:52)
[2019-03-18 06:13] LABS: INR 1.7 (0.9-1.1)
[2019-03-18] MEDS: LEVOTHYROXINE SODIUM 100 MCG TABLET PO SCH (06:34)
[2019-03-18] MEDS: LISINOPRIL 10 MG TABLET PO SCH (08:53)
[2019-03-18] MEDS: PANTOPRAZOLE SODIUM 40 MG DR TABLET PO SCH (08:53)
[2019-03-18] MEDS: ATORVASTATIN CALCIUM 20 MG TABLET PO SCH (08:53)
[2019-03-18] MEDS: ASPIRIN 81 MG CHEWABLE TABLET PO SCH (08:53)
[2019-03-18] MEDS: AmLODIPine BESYLATE 2.5 MG TABLET PO SCH ×2 (08:53→20:52)
[2019-03-18] MEDS: METOPROLOL SUCCINATE 50 MG ER TABLET PO SCH (08:54)
[2019-03-18] MEDS: DOCUSATE SODIUM 100 MG CAPSULE PO SCH ×3 (08:54→21:08)
[2019-03-18] MEDS: CLINDAMYCIN 900 MG/D5% WATER 50 ML IV SCH (11:14)
[2019-03-18] MEDS: MORPHINE SULFATE 2 MG/ML SYRINGE IVP PRN (11:25)
[2019-03-18] MEDS ORDERED: AMIODARONE HCL 360 MG in DEXTROSE 5%-WATER 242.8 ML IV ONE (15:45)
[2019-03-18] MEDS ORDERED: WARFARIN SODIUM 5 MG TABLET PO ONE (17:00)
[2019-03-18] MEDS ORDERED: AMIODARONE HCL 540 MG in DEXTROSE 5%-WATER 239.2 ML IV ONE (21:45)
[2019-03-19] MEDS: PENICILLIN G POTASSIUM 4 MILUNITS in DEXTROSE 5%-WATER 100 ML IV SCH ×7 (00:13→23:58)
[2019-03-19] MEDS: IPRATROPIUM BROMIDE 0.5 MG/2.5 ML NEB SOLUTION NEB SCH ×4 (02:12→19:57)
[2019-03-19] MEDS: ALBUTEROL SULFATE 2.5 MG/0.5 ML NEB SOLUTION NEB SCH ×4 (02:12→19:58)
[2019-03-19 05:12] VITALS: BP 162/102
[2019-03-19] MEDS ORDERED: SODIUM CHLORIDE 0.9% 0 ML ONE (05:57)
[2019-03-19] MEDS ORDERED: SODIUM CHLORIDE 0.9% 100 ML ONE (05:57)
[2019-03-19] MEDS: LEVOTHYROXINE SODIUM 100 MCG TABLET PO SCH (06:27)
[2019-03-19] MEDS: MORPHINE SULFATE 2 MG/ML SYRINGE IVP PRN (06:27)
[2019-03-19 06:47] LABS: BASOPHILS % (AUTO) 0.2 % (0.0-2.0); EOSINOPHILS % (AUTO) 0.9 % (1.0-6.0); HEMATOCRIT 38.9 % (41-53); HEMOGLOBIN 12.7 g/dL (13.5-17.5); LYMPHOCYTES # (AUTO) 1.7 K/uL (1.0-4.8); MEAN CORPUSCULAR HGB CONC 32.5 G/dL (31.0-37.0); MEAN CORPUSCULAR VOLUME 89 fL (80-100); MONOCYTES # (AUTO) 0.1 K/uL (0.1-1.0); MONOCYTES % (AUTO) 0.3 % (2.0-9.0); NEUTROPHILS # (AUTO) 22.7 K/uL (1.8-7.7); NEUTROPHILS % (AUTO) 91.6 % (40.0-70.0); PLATELET COUNT (AUTO) 269 K/uL (150-450); RED BLOOD CELL COUNT(AUTO) 4.35 MIL/uL (4.50-5.90)
[2019-03-19 07:02] LABS: PROTHROMBIN TIME 20.1 SEC (9.4-11.6)
[2019-03-19 07:13] LABS: ALANINE AMINOTRANSFERASE 35 U/L (12-78); ALBUMIN 1.9 g/dL (3.4-5.0); ALKALINE PHOSPHATASE 86 U/L (46-116); ANION GAP 10 mmol/L (8-16); ASPARTATE AMINOTRANSFERASE 33 U/L (15-37); BILIRUBIN,TOTAL 0.9 mg/dL (0.1-1.0); C-REACTIVE PROTEIN QUANT 23.81 mg/dL (0.00-0.30); CALCIUM, TOTAL 8.4 mg/dL (8.8-10.5); CARBON DIOXIDE 28 mmol/L (22-29); CHLORIDE 99 mmol/L (98-107); CREATININE 1.25 mg/dL (0.60-1.30); GLOMERULAR FILTR. RATE CALC > 60 mL/min (>60); GLUCOSE,RANDOM 128 mg/dL (70-110); POTASSIUM 4.1 mmol/L (3.5-5.1); SODIUM SERUM 137 mmol/L (136-145); TOTAL PROTEIN, SERUM 7.7 g/dL (6.4-8.2); UREA NITROGEN, BLOOD 10 mg/dL (7-18)
[2019-03-19 07:50] VITALS: BP 163/103
[2019-03-19] MEDS: LISINOPRIL 10 MG TABLET PO SCH (08:36)
[2019-03-19] MEDS: ASPIRIN 81 MG CHEWABLE TABLET PO SCH (08:36)
[2019-03-19] MEDS: AmLODIPine BESYLATE 2.5 MG TABLET PO SCH ×2 (08:36→20:57)
[2019-03-19] MEDS: PANTOPRAZOLE SODIUM 40 MG DR TABLET PO SCH (08:37)
[2019-03-19] MEDS: METOPROLOL SUCCINATE 50 MG ER TABLET PO SCH (08:37)
[2019-03-19] MEDS: ATORVASTATIN CALCIUM 20 MG TABLET PO SCH (08:37)
[2019-03-19] MEDS: DOCUSATE SODIUM 100 MG CAPSULE PO SCH ×2 (08:42→21:00)
[2019-03-19] MEDS ORDERED: DIGOXIN 250 MCG/ML 2 ML AMP IVP ONE (11:30)
[2019-03-19 11:50] VITALS: BP 154/114
[2019-03-19] MEDS: ACETAMINOPHEN 325 MG TABLET PO PRN ×2 (11:53→18:05)
[2019-03-19] MEDS: AMIODARONE HCL 750 MG in DEXTROSE 5%-WATER 485 ML IV SCH (16:07)
[2019-03-19] MEDS: HYDROCODONE/ACETAMINOPHEN 5-325 MG TABLET PO PRN (16:14)
[2019-03-19 16:40] VITALS: BP 158/115
[2019-03-19] MEDS ORDERED: WARFARIN SODIUM 5 MG TABLET PO ONE (17:00)
[2019-03-19 19:56] VITALS: BP 155/83
[2019-03-20] MEDS ORDERED: SODIUM CHLORIDE 0.9% 100 ML ONE (00:22)
[2019-03-20 00:56] VITALS: BP 151/100
[2019-03-20] MEDS: MORPHINE SULFATE 2 MG/ML SYRINGE IVP PRN (01:00)
[2019-03-20] MEDS: IPRATROPIUM BROMIDE 0.5 MG/2.5 ML NEB SOLUTION NEB SCH ×3 (03:06→14:53)
[2019-03-20] MEDS: ALBUTEROL SULFATE 2.5 MG/0.5 ML NEB SOLUTION NEB SCH ×3 (03:06→14:53)
[2019-03-20] MEDS: PENICILLIN G POTASSIUM 4 MILUNITS in DEXTROSE 5%-WATER 100 ML IV SCH ×5 (04:14→20:09)
[2019-03-20 04:50] VITALS: BP 147/96
[2019-03-20] MEDS: ACETAMINOPHEN 325 MG TABLET PO PRN ×2 (06:08→20:08)
[2019-03-20] MEDS: LEVOTHYROXINE SODIUM 100 MCG TABLET PO SCH (06:08)
[2019-03-20 07:07] LABS: BASOPHILS % (AUTO) 0.3 % (0.0-2.0); EOSINOPHILS % (AUTO) 0.4 % (1.0-6.0); HEMATOCRIT 34.7 % (41-53); HEMOGLOBIN 11.7 g/dL (13.5-17.5); LYMPHOCYTES # (AUTO) 1.4 K/uL (1.0-4.8); LYMPHOCYTES % (AUTO) 5.3 % (22.0-44.0); MEAN CORPUSCULAR HEMOGLOBIN 29.8 pg (26.0-34.0); MEAN CORPUSCULAR HGB CONC 33.6 G/dL (31.0-37.0); MEAN CORPUSCULAR VOLUME 89 fL (80-100); MONOCYTES # (AUTO) 1.4 K/uL (0.1-1.0); MONOCYTES % (AUTO) 5.7 % (2.0-9.0); NEUTROPHILS # (AUTO) 22.3 K/uL (1.8-7.7); PLATELET COUNT (AUTO) 338 K/uL (150-450); RED BLOOD CELL COUNT(AUTO) 3.92 MIL/uL (4.50-5.90); RED CELL DISTRIBUTION WIDTH 15.8 % (11.5-14.5)
[2019-03-20 07:11] LABS: NEUTROPHILS % (AUTO) 88.3 % (40.0-70.0)
[2019-03-20 07:31] LABS: PROTHROMBIN TIME 19.9 SEC (9.4-11.6)
[2019-03-20 07:33] LABS: ALANINE AMINOTRANSFERASE 28 U/L (12-78); ALBUMIN 1.8 g/dL (3.4-5.0); ALKALINE PHOSPHATASE 86 U/L (46-116); ANION GAP 9 mmol/L (8-16); ASPARTATE AMINOTRANSFERASE 29 U/L (15-37); BILIRUBIN,TOTAL 0.8 mg/dL (0.1-1.0); CALCIUM, TOTAL 8.2 mg/dL (8.8-10.5); CARBON DIOXIDE 26 mmol/L (22-29); CHLORIDE 98 mmol/L (98-107); GLOMERULAR FILTR. RATE CALC > 60 mL/min (>60); GLUCOSE,RANDOM 129 mg/dL (70-110); POTASSIUM 4.5 mmol/L (3.5-5.1); SODIUM SERUM 133 mmol/L (136-145); TOTAL PROTEIN, SERUM 7.6 g/dL (6.4-8.2); UREA NITROGEN, BLOOD 13 mg/dL (7-18)
[2019-03-20 07:55] VITALS: BP 138/92
[2019-03-20 08:08] LABS: C-REACTIVE PROTEIN QUANT 30.18 mg/dL (0.00-0.30)
[2019-03-20] MEDS: FUROSEMIDE 20 MG TABLET PO SCH (08:12)
[2019-03-20] MEDS: ASPIRIN 81 MG CHEWABLE TABLET PO SCH (08:12)
[2019-03-20] MEDS: LISINOPRIL 10 MG TABLET PO SCH (08:13)
[2019-03-20] MEDS: PANTOPRAZOLE SODIUM 40 MG DR TABLET PO SCH (08:13)
[2019-03-20] MEDS: DOCUSATE SODIUM 100 MG CAPSULE PO SCH ×2 (08:13→20:10)
[2019-03-20] MEDS: ATORVASTATIN CALCIUM 20 MG TABLET PO SCH (08:13)
[2019-03-20] MEDS: AmLODIPine BESYLATE 2.5 MG TABLET PO SCH ×2 (08:13→20:09)
[2019-03-20] MEDS: METOPROLOL SUCCINATE 50 MG ER TABLET PO SCH (08:13)
[2019-03-20] MEDS: HYDROCODONE/ACETAMINOPHEN 5-325 MG TABLET PO PRN ×2 (08:14→17:02)
[2019-03-20 11:25] VITALS: BP 152/101
[2019-03-20] MEDS ORDERED: SODIUM CHLORIDE 0.9% 250 ML IV ONE (12:16)
[2019-03-20] MEDS: VANCOMYCIN HCL 125 MG/2.5 ML SOLUTION ORAL.SYG PO SCH ×2 (12:22→16:56)
[2019-03-20] MEDS ORDERED: DEXTROSE 5%-WATER 500 ML IV ONE (12:36)
[2019-03-20] MEDS ORDERED: GADOBUTROL 1 MMOL/ML 10 ML VIAL IVP ONE (13:51)
[2019-03-20] MEDS: MetroNIDAZOLE 500 MG/NACL 100 ML IV SCH ×2 (14:26→23:30)
[2019-03-20 15:29] VITALS: BP 158/102
[2019-03-20] MEDS: AMIODARONE HCL 750 MG in DEXTROSE 5%-WATER 485 ML IV SCH (16:56)
[2019-03-20] MEDS ORDERED: WARFARIN SODIUM 3 MG TABLET PO ONE (17:00)
[2019-03-20 19:47] VITALS: BP 148/89
[2019-03-20] MEDS ORDERED: SODIUM CHLORIDE 0.9% 0 ML IV ONE (19:55)
[2019-03-20] MEDS: DIGOXIN 250 MCG/ML 2 ML AMP IVP SCH (20:08)
[2019-03-20] MEDS: LOSARTAN POTASSIUM 50 MG TABLET PO SCH (20:09)
[2019-03-20] MEDS: AMIODARONE HCL 200 MG TABLET PO SCH (20:09)
[2019-03-21] VITALS (8 sets, daily range): BP systolic 116–157; BP diastolic 60–101
[2019-03-21] MEDS: ALBUTEROL SULFATE 2.5 MG/0.5 ML NEB SOLUTION NEB SCH ×5 (02:00→19:57)
[2019-03-21] MEDS: IPRATROPIUM BROMIDE 0.5 MG/2.5 ML NEB SOLUTION NEB SCH ×5 (02:00→19:57)
[2019-03-21] MEDS: MORPHINE SULFATE 2 MG/ML SYRINGE IVP PRN ×2 (02:23→07:57)
[2019-03-21] MEDS: DIGOXIN 250 MCG/ML 2 ML AMP IVP SCH ×2 (02:24→07:33)
[2019-03-21] MEDS: VANCOMYCIN HCL 125 MG/2.5 ML SOLUTION ORAL.SYG PO SCH ×4 (03:46→18:16)
[2019-03-21] MEDS: PENICILLIN G POTASSIUM 4 MILUNITS in DEXTROSE 5%-WATER 100 ML IV SCH ×7 (03:48→20:57)
[2019-03-21] MEDS: ACETAMINOPHEN 325 MG TABLET PO PRN (05:29)
[2019-03-21] MEDS: MetroNIDAZOLE 500 MG/NACL 100 ML IV SCH ×3 (05:29→22:13)
[2019-03-21] MEDS: LEVOTHYROXINE SODIUM 100 MCG TABLET PO SCH (05:29)
[2019-03-21 06:45] LABS: BASOPHILS % (AUTO) 0.2 % (0.0-2.0); EOSINOPHILS % (AUTO) 0.8 % (1.0-6.0); HEMATOCRIT 34.2 % (41-53); HEMOGLOBIN 11.6 g/dL (13.5-17.5); LYMPHOCYTES # (AUTO) 1.4 K/uL (1.0-4.8); LYMPHOCYTES % (AUTO) 5.2 % (22.0-44.0); MEAN CORPUSCULAR HEMOGLOBIN 30.4 pg (26.0-34.0); MEAN CORPUSCULAR HGB CONC 34.1 G/dL (31.0-37.0); MEAN CORPUSCULAR VOLUME 89 fL (80-100); MONOCYTES # (AUTO) 1.5 K/uL (0.1-1.0); MONOCYTES % (AUTO) 5.7 % (2.0-9.0); NEUTROPHILS # (AUTO) 23.9 K/uL (1.8-7.7); PLATELET COUNT (AUTO) 384 K/uL (150-450); RED BLOOD CELL COUNT(AUTO) 3.83 MIL/uL (4.50-5.90); RED CELL DISTRIBUTION WIDTH 15.8 % (11.5-14.5)
[2019-03-21 06:58] LABS: INR 1.9 (0.9-1.1)
[2019-03-21 07:08] LABS: ALBUMIN 1.6 g/dL (3.4-5.0); BILIRUBIN,TOTAL 0.6 mg/dL (0.1-1.0); CALCIUM, TOTAL 8.3 mg/dL (8.8-10.5); CREATININE 1.44 mg/dL (0.60-1.30); POTASSIUM 4.6 mmol/L (3.5-5.1); TOTAL PROTEIN, SERUM 7.7 g/dL (6.4-8.2)
[2019-03-21 07:09] LABS: NEUTROPHILS % (AUTO) 88.1 % (40.0-70.0)
[2019-03-21 07:19] LABS: C-REACTIVE PROTEIN QUANT 28.57 mg/dL (0.00-0.30)
[2019-03-21] MEDS: METOPROLOL SUCCINATE 50 MG ER TABLET PO SCH (08:51)
[2019-03-21] MEDS: DOCUSATE SODIUM 100 MG CAPSULE PO SCH ×2 (08:51→20:57)
[2019-03-21] MEDS: AmLODIPine BESYLATE 2.5 MG TABLET PO SCH ×2 (08:52→20:56)
[2019-03-21] MEDS: ASPIRIN 81 MG CHEWABLE TABLET PO SCH (08:59)
[2019-03-21] MEDS: FUROSEMIDE 20 MG TABLET PO SCH (09:00)
[2019-03-21] MEDS: PANTOPRAZOLE SODIUM 40 MG DR TABLET PO SCH (09:00)
[2019-03-21] MEDS: LOSARTAN POTASSIUM 50 MG TABLET PO SCH (09:00)
[2019-03-21] MEDS: AMIODARONE HCL 200 MG TABLET PO SCH ×2 (09:00→20:56)
[2019-03-21] MEDS: ATORVASTATIN CALCIUM 20 MG TABLET PO SCH (09:00)
[2019-03-21] MEDS: LISINOPRIL 10 MG TABLET PO SCH (09:01)
[2019-03-21 14:48] LABS: SPECIMENTYPE,BODY FLUID SYNOVIAL
[2019-03-21] MEDS: HYDROCODONE/ACETAMINOPHEN 5-325 MG TABLET PO PRN (16:07)
[2019-03-21 16:15] LABS: APPEARANCE,SPUN,BODY FLUID CLEAR (CLEAR); APPEARANCE,UNSPUN,BODY FLUID TURBID (CLEAR); COLOR,BODY FLUID YELLOW (LT YELLOW); TOTAL VOLUME,BODY FLUID 2.5 mL
[2019-03-21 16:16] LABS: BASOPHILS,BODY FLUID 0 %; EOSINOPHILS,BF (ANAL) 0 %; LYMPHOCYTES,BODY FLUID 0 %; MONOCYTES,BODY FLUID 0 %; NEUTROPHILS,BODY FLUID 100 %; WBC, BODY FLUID 6993 /cu. mm.
[2019-03-21] MEDS ORDERED: WARFARIN SODIUM 3 MG TABLET PO ONE (17:00)
[2019-03-21] MEDS ORDERED: KETOROLAC TROMETHAMINE 30 MG/ML VIAL IVP ONE (18:00)
[2019-03-22 00:01] VITALS: BP 120/97
[2019-03-22] MEDS: PENICILLIN G POTASSIUM 4 MILUNITS in DEXTROSE 5%-WATER 100 ML IV SCH (00:11)
[2019-03-22] MEDS: VANCOMYCIN HCL 125 MG/2.5 ML SOLUTION ORAL.SYG PO SCH (01:07)
[2019-03-22] MEDS: ALBUTEROL SULFATE 2.5 MG/0.5 ML NEB SOLUTION NEB SCH ×4 (03:12→21:00)
[2019-03-22] MEDS: IPRATROPIUM BROMIDE 0.5 MG/2.5 ML NEB SOLUTION NEB SCH ×4 (03:12→21:00)
[2019-03-22 05:17] VITALS: BP 145/72
[2019-03-22] MEDS: MetroNIDAZOLE 500 MG/NACL 100 ML IV SCH ×3 (05:23→22:04)
[2019-03-22] MEDS ORDERED: VANCOMYCIN HCL 1 GM/D5% WATER 200 ML IV ONE ×2 (06:00→10:00)
[2019-03-22] MEDS: MORPHINE SULFATE 2 MG/ML SYRINGE IVP PRN ×3 (06:25→16:48)
[2019-03-22] MEDS: LEVOTHYROXINE SODIUM 100 MCG TABLET PO SCH (06:25)
[2019-03-22 07:42] LABS: BASOPHILS % (AUTO) 0.2 % (0.0-2.0); EOSINOPHILS % (AUTO) 2.3 % (1.0-6.0); HEMATOCRIT 34.6 % (41-53); HEMOGLOBIN 11.7 g/dL (13.5-17.5); LYMPHOCYTES # (AUTO) 1.2 K/uL (1.0-4.8); LYMPHOCYTES % (AUTO) 5.6 % (22.0-44.0); MEAN CORPUSCULAR HGB CONC 33.8 G/dL (31.0-37.0); MEAN CORPUSCULAR VOLUME 89 fL (80-100); MONOCYTES # (AUTO) 1.3 K/uL (0.1-1.0); MONOCYTES % (AUTO) 5.9 % (2.0-9.0); NEUTROPHILS # (AUTO) 18.2 K/uL (1.8-7.7); PLATELET COUNT (AUTO) 363 K/uL (150-450); RED BLOOD CELL COUNT(AUTO) 3.89 MIL/uL (4.50-5.90); RED CELL DISTRIBUTION WIDTH 15.9 % (11.5-14.5)
[2019-03-22 07:43] VITALS: BP 147/65
[2019-03-22 07:49] LABS: INR 2.5 (0.9-1.1); PROTHROMBIN TIME 25.4 SEC (9.4-11.6)
[2019-03-22 08:02] LABS: ALANINE AMINOTRANSFERASE 32 U/L (12-78); ALBUMIN 1.7 g/dL (3.4-5.0); ALKALINE PHOSPHATASE 89 U/L (46-116); ANION GAP 8 mmol/L (8-16); ASPARTATE AMINOTRANSFERASE 31 U/L (15-37); BILIRUBIN,TOTAL 0.5 mg/dL (0.1-1.0); CALCIUM, TOTAL 8.1 mg/dL (8.8-10.5); CARBON DIOXIDE 28 mmol/L (22-29); CHLORIDE 100 mmol/L (98-107); CREATININE 1.23 mg/dL (0.60-1.30); GLOMERULAR FILTR. RATE CALC > 60 mL/min (>60); GLUCOSE,RANDOM 81 mg/dL (70-110); POTASSIUM 5.1 mmol/L (3.5-5.1); SODIUM SERUM 136 mmol/L (136-145); TOTAL PROTEIN, SERUM 6.8 g/dL (6.4-8.2); UREA NITROGEN, BLOOD 19 mg/dL (7-18)
[2019-03-22 08:11] LABS: C-REACTIVE PROTEIN QUANT 27.09 mg/dL (0.00-0.30)
[2019-03-22] MEDS: DOCUSATE SODIUM 100 MG CAPSULE PO SCH ×2 (09:00→21:57)
[2019-03-22] MEDS ORDERED: SODIUM CHLORIDE 0.9% 500 ML IV ONE (10:51)
[2019-03-22 11:20] VITALS: BP 141/96
[2019-03-22] MEDS ORDERED: IOVERSOL 350 MG/ML 150 ML VIAL ONE (11:56)
[2019-03-22] MEDS ORDERED: MORPHINE SULFATE 2 MG/ML SYRINGE IVP ONE (12:30)
[2019-03-22] MEDS: METOPROLOL SUCCINATE 50 MG ER TABLET PO SCH (13:46)
[2019-03-22] MEDS: LISINOPRIL 10 MG TABLET PO SCH (13:46)
[2019-03-22] MEDS: AmLODIPine BESYLATE 2.5 MG TABLET PO SCH ×2 (13:46→21:57)
[2019-03-22] MEDS: AMIODARONE HCL 200 MG TABLET PO SCH ×2 (13:48→21:57)
[2019-03-22] MEDS: HYDROCODONE/ACETAMINOPHEN 5-325 MG TABLET PO PRN (13:48)
[2019-03-22] MEDS: PANTOPRAZOLE SODIUM 40 MG DR TABLET PO SCH (13:48)
[2019-03-22] MEDS: ASPIRIN 81 MG CHEWABLE TABLET PO SCH (13:48)
[2019-03-22] MEDS: LOSARTAN POTASSIUM 50 MG TABLET PO SCH (13:48)
[2019-03-22] MEDS: ATORVASTATIN CALCIUM 20 MG TABLET PO SCH (13:48)
[2019-03-22] MEDS: FUROSEMIDE 20 MG TABLET PO SCH (13:49)
[2019-03-22 16:39] VITALS: BP 146/89
[2019-03-22] MEDS ORDERED: WARFARIN SODIUM 2 MG TABLET PO ONE (17:00)
[2019-03-22] MEDS: VANCOMYCIN HCL 1 GM/D5% WATER 200 ML IV SCH (18:49)
[2019-03-22 21:05] VITALS: BP 141/98
[2019-03-23 00:29] VITALS: BP 132/72
[2019-03-23] MEDS: IPRATROPIUM BROMIDE 0.5 MG/2.5 ML NEB SOLUTION NEB SCH ×4 (02:00→20:04)
[2019-03-23] MEDS: ALBUTEROL SULFATE 2.5 MG/0.5 ML NEB SOLUTION NEB SCH ×4 (02:00→20:04)
[2019-03-23] MEDS: MORPHINE SULFATE 2 MG/ML SYRINGE IVP PRN ×2 (03:56→08:51)
[2019-03-23 05:02] VITALS: BP 154/81
[2019-03-23] MEDS: MetroNIDAZOLE 500 MG/NACL 100 ML IV SCH ×2 (05:59→12:08)
[2019-03-23] MEDS: LEVOTHYROXINE SODIUM 100 MCG TABLET PO SCH (06:00)
[2019-03-23] MEDS: VANCOMYCIN HCL 1 GM/D5% WATER 200 ML IV SCH (06:01)
[2019-03-23 07:16] LABS: ANION GAP 8 mmol/L (8-16); CALCIUM, TOTAL 8.4 mg/dL (8.8-10.5); CARBON DIOXIDE 26 mmol/L (22-29); CHLORIDE 99 mmol/L (98-107); CREATININE 1.34 mg/dL (0.60-1.30); GLOMERULAR FILTR. RATE CALC > 60 mL/min (>60); GLUCOSE,RANDOM 93 mg/dL (70-110); POTASSIUM 4.4 mmol/L (3.5-5.1); SODIUM SERUM 133 mmol/L (136-145); UREA NITROGEN, BLOOD 20 mg/dL (7-18)
[2019-03-23 07:27] LABS: INR 3.5 (0.9-1.1); PROTHROMBIN TIME 36.1 SEC (9.4-11.6)
[2019-03-23 07:35] LABS: BASOPHILS % (AUTO) 0.5 % (0.0-2.0); EOSINOPHILS % (AUTO) 3.3 % (1.0-6.0); HEMATOCRIT 35.9 % (41-53); HEMOGLOBIN 12.2 g/dL (13.5-17.5); LYMPHOCYTES # (AUTO) 1.3 K/uL (1.0-4.8); LYMPHOCYTES % (AUTO) 6.7 % (22.0-44.0); MEAN CORPUSCULAR HEMOGLOBIN 30.1 pg (26.0-34.0); MEAN CORPUSCULAR VOLUME 89 fL (80-100); MONOCYTES # (AUTO) 1.1 K/uL (0.1-1.0); MONOCYTES % (AUTO) 5.9 % (2.0-9.0); NEUTROPHILS # (AUTO) 16.2 K/uL (1.8-7.7); NEUTROPHILS % (AUTO) 83.6 % (40.0-70.0); RED BLOOD CELL COUNT(AUTO) 4.05 MIL/uL (4.50-5.90)
[2019-03-23 07:49] VITALS: BP 158/101
[2019-03-23] MEDS: ATORVASTATIN CALCIUM 20 MG TABLET PO SCH (08:52)
[2019-03-23] MEDS: METOPROLOL SUCCINATE 50 MG ER TABLET PO SCH (08:53)
[2019-03-23] MEDS: AMIODARONE HCL 200 MG TABLET PO SCH ×2 (08:53→20:53)
[2019-03-23] MEDS: LOSARTAN POTASSIUM 50 MG TABLET PO SCH (08:53)
[2019-03-23] MEDS: AmLODIPine BESYLATE 2.5 MG TABLET PO SCH ×2 (08:53→20:53)
[2019-03-23] MEDS: LISINOPRIL 10 MG TABLET PO SCH (08:53)
[2019-03-23] MEDS: PANTOPRAZOLE SODIUM 40 MG DR TABLET PO SCH (08:53)
[2019-03-23] MEDS: FUROSEMIDE 20 MG TABLET PO SCH (08:53)
[2019-03-23] MEDS: ASPIRIN 81 MG CHEWABLE TABLET PO SCH (08:53)
[2019-03-23] MEDS: DOCUSATE SODIUM 100 MG CAPSULE PO SCH ×2 (08:54→20:52)
[2019-03-23 09:25] LABS: PLATELET COUNT (AUTO) 400 K/uL (150-450)
[2019-03-23 11:42] VITALS: BP 114/75
[2019-03-23] MEDS ORDERED: DiphenhydrAMINE HCL 25 MG CAPSULE PO PRN (13:15)
[2019-03-23] MEDS ORDERED: MethylPREDNISolone SOD SUCC 125 MG/2 ML VIAL IVP SCH (13:15)
[2019-03-23] MEDS: HYDROCODONE/ACETAMINOPHEN 5-325 MG TABLET PO PRN (14:06)
[2019-03-23] MEDS: MethylPREDNISolone SOD SUCC 125 MG/2 ML VIAL IVP SCH (16:00)
[2019-03-23 16:26] VITALS: BP 141/76
[2019-03-23] MEDS ORDERED: WARFARIN SODIUM 3 MG TABLET PO ONE (17:00)
[2019-03-23 20:12] VITALS: BP 142/84
[2019-03-23] MEDS: DAPTOMYCIN IV SCH (20:52)
[2019-03-23] MEDS: SODIUM CHLORIDE 0.9% IV SCH (20:52)
[2019-03-23] MEDS: FAMOTIDINE 10 MG/ML 2 ML VIAL IVP SCH (20:54)
[2019-03-23] MEDS: HYPROMELLOSE 0.5% 15 ML OPHTHALMIC SOLUTION OU SCH (20:55)
[2019-03-24] VITALS (14 sets, daily range): BP systolic 109–163; BP diastolic 56–108
[2019-03-24] MEDS: MethylPREDNISolone SOD SUCC 125 MG/2 ML VIAL IVP SCH ×3 (00:04→20:20)
[2019-03-24] MEDS: ALBUTEROL SULFATE 2.5 MG/0.5 ML NEB SOLUTION NEB SCH ×4 (02:17→20:36)
[2019-03-24] MEDS: IPRATROPIUM BROMIDE 0.5 MG/2.5 ML NEB SOLUTION NEB SCH ×4 (02:17→20:36)
[2019-03-24] MEDS: HYPROMELLOSE 0.5% 15 ML OPHTHALMIC SOLUTION OU SCH ×3 (06:09→18:28)
[2019-03-24] MEDS: LEVOTHYROXINE SODIUM 100 MCG TABLET PO SCH (06:09)
[2019-03-24 07:47] LABS: C-REACTIVE PROTEIN QUANT 22.47 mg/dL (0.00-0.30); CALCIUM, TOTAL 8.7 mg/dL (8.8-10.5); CREATININE 1.43 mg/dL (0.60-1.30); POTASSIUM 4.8 mmol/L (3.5-5.1)
[2019-03-24 07:51] LABS: BASOPHILS % (AUTO) 0.2 % (0.0-2.0); EOSINOPHILS % (AUTO) 0.8 % (1.0-6.0); HEMATOCRIT 34.5 % (41-53); HEMOGLOBIN 11.3 g/dL (13.5-17.5); LYMPHOCYTES # (AUTO) 1.3 K/uL (1.0-4.8); LYMPHOCYTES % (AUTO) 4.7 % (22.0-44.0); MEAN CORPUSCULAR HEMOGLOBIN 29.3 pg (26.0-34.0); MEAN CORPUSCULAR HGB CONC 32.9 G/dL (31.0-37.0); MEAN CORPUSCULAR VOLUME 89 fL (80-100); MONOCYTES # (AUTO) 0.8 K/uL (0.1-1.0); MONOCYTES % (AUTO) 2.8 % (2.0-9.0); NEUTROPHILS # (AUTO) 24.9 K/uL (1.8-7.7); RED BLOOD CELL COUNT(AUTO) 3.87 MIL/uL (4.50-5.90)
[2019-03-24 08:02] LABS: NEUTROPHILS % (AUTO) 91.5 % (40.0-70.0)
[2019-03-24 08:03] LABS: PLATELET COUNT (AUTO) 386 K/uL (150-450)
[2019-03-24 08:39] LABS: PROTHROMBIN TIME 43.8 SEC (9.4-11.6)
[2019-03-24 08:44] LABS: INR 4.3 (0.9-1.1)
[2019-03-24] MEDS: AMIODARONE HCL 200 MG TABLET PO SCH ×2 (09:39→20:21)
[2019-03-24] MEDS: AmLODIPine BESYLATE 2.5 MG TABLET PO SCH ×2 (09:39→20:21)
[2019-03-24] MEDS: METOPROLOL SUCCINATE 50 MG ER TABLET PO SCH (09:39)
[2019-03-24] MEDS: DOCUSATE SODIUM 100 MG CAPSULE PO SCH ×2 (09:39→20:20)
[2019-03-24] MEDS: ATORVASTATIN CALCIUM 20 MG TABLET PO SCH (09:39)
[2019-03-24] MEDS: LISINOPRIL 10 MG TABLET PO SCH (09:39)
[2019-03-24] MEDS: LOSARTAN POTASSIUM 50 MG TABLET PO SCH (09:40)
[2019-03-24] MEDS: ASPIRIN 81 MG CHEWABLE TABLET PO SCH (09:40)
[2019-03-24] MEDS: FUROSEMIDE 20 MG TABLET PO SCH (09:40)
[2019-03-24] MEDS: FAMOTIDINE 10 MG/ML 2 ML VIAL IVP SCH ×2 (09:41→20:20)
[2019-03-24] MEDS ORDERED: SODIUM CHLORIDE 0.9% 250 ML IV ONE (18:25)
[2019-03-24] MEDS: DAPTOMYCIN IV SCH (18:28)
[2019-03-24] MEDS: SODIUM CHLORIDE 0.9% IV SCH (18:28)
[2019-03-25] VITALS (17 sets, daily range): BP systolic 89–156; BP diastolic 48–86
[2019-03-25] MEDS: IPRATROPIUM BROMIDE 0.5 MG/2.5 ML NEB SOLUTION NEB SCH ×4 (02:38→19:57)
[2019-03-25] MEDS: ALBUTEROL SULFATE 2.5 MG/0.5 ML NEB SOLUTION NEB SCH ×4 (02:38→19:57)
[2019-03-25] MEDS: HYPROMELLOSE 0.5% 15 ML OPHTHALMIC SOLUTION OU SCH ×3 (06:00→17:09)
[2019-03-25] MEDS ORDERED: SODIUM CHLORIDE 0.9% 1,000 ML ONE (06:23)
[2019-03-25] MEDS: LEVOTHYROXINE SODIUM 100 MCG TABLET PO SCH (06:30)
[2019-03-25] MEDS ORDERED: MIDAZOLAM HCL 2 MG/2 ML VIAL ONE (06:43)
[2019-03-25 06:51] LABS: CALCIUM, TOTAL 8.9 mg/dL (8.8-10.5); CREATININE 1.93 mg/dL (0.60-1.30); POTASSIUM 4.5 mmol/L (3.5-5.1)
[2019-03-25 06:54] LABS: INR 3.6 (0.9-1.1); PROTHROMBIN TIME 36.5 SEC (9.4-11.6)
[2019-03-25 07:18] LABS: BASOPHILS % (AUTO) 0.5 % (0.0-2.0); EOSINOPHILS % (AUTO) 1.3 % (1.0-6.0); HEMATOCRIT 31.2 % (41-53); LYMPHOCYTES % (AUTO) 14.2 % (22.0-44.0); MEAN CORPUSCULAR HEMOGLOBIN 29.1 pg (26.0-34.0); MEAN CORPUSCULAR HGB CONC 31.9 G/dL (31.0-37.0); MEAN CORPUSCULAR VOLUME 91 fL (80-100); MONOCYTES % (AUTO) 3.7 % (2.0-9.0); NEUTROPHILS # (AUTO) 22.5 K/uL (1.8-7.7); NEUTROPHILS % (AUTO) 80.3 % (40.0-70.0); PLATELET COUNT (AUTO) 417 K/uL (150-450); RED BLOOD CELL COUNT(AUTO) 3.43 MIL/uL (4.50-5.90); RED CELL DISTRIBUTION WIDTH 16.4 % (11.5-14.5)
[2019-03-25] MEDS ORDERED: ROCURONIUM BROMIDE 10 MG/ML 5 ML VIAL ONE (07:36)
[2019-03-25 07:40] LABS: GLUCOMETER DEV NAME(LOC) 5N.2; GLUCOSE,POINT OF CARE 150 MG/DL (70-110)
[2019-03-25 08:31] LABS: ABG PH 7.482 (7.35-7.450); SITE, BLOOD GAS LFT RADIAL; SOURCE, BLOOD GAS ARTERIAL; TEMPERATURE, FAHRENHEIT, BG 98.6 FAHREN (96.0-98.6)
[2019-03-25 08:32] LABS: ABG CARBOXYHEMOGLOBIN 0.3 % (0.0-1.5); ABG HCO3 17.9 mmol/L (22.0-26.0); ABG METHEMOGLOBIN 0.3 % (0.0-1.5); ABG OXYGEN CONTENT 15.5 mL/dL (15.0-23.0); ABG OXYGEN SATURATION 99.5 % (95.0-98.0); ABG OXYHEMOGLOBIN 98.9 % (94.0-100.0); ABG PCO2 18 mmHg (35-45); ABG TOTAL HEMOGLOBIN 10.3 G/dL (12.0-18.0); PO2, ARTERIAL BG 435.6 mmHg (79.0-87.0)
[2019-03-25 08:33] LABS: O2 DEVICE,BLOOD GAS BIPAP (ROOM AIR)
[2019-03-25] MEDS: FUROSEMIDE 40 MG TABLET PO SCH ×2 (08:56→20:51)
[2019-03-25] MEDS: LOSARTAN POTASSIUM 50 MG TABLET PO SCH (08:56)
[2019-03-25] MEDS: HydrALAZINE HCL 50 MG TABLET PO SCH ×2 (08:56→20:46)
[2019-03-25] MEDS: LISINOPRIL 10 MG TABLET PO SCH (08:57)
[2019-03-25] MEDS: METOPROLOL SUCCINATE 50 MG ER TABLET PO SCH (08:57)
[2019-03-25] MEDS: AmLODIPine BESYLATE 2.5 MG TABLET PO SCH ×2 (08:57→20:46)
[2019-03-25] MEDS: FAMOTIDINE 10 MG/ML 2 ML VIAL IVP SCH (09:00)
[2019-03-25] MEDS: DOCUSATE SODIUM 100 MG CAPSULE PO SCH ×2 (09:00→20:50)
[2019-03-25] MEDS ORDERED: RINGERS SOLUTION,LACTATED 1,000 ML IV ONE (09:01)
[2019-03-25] MEDS: MethylPREDNISolone SOD SUCC 125 MG/2 ML VIAL IVP SCH ×2 (09:03→20:50)
[2019-03-25] MEDS: ATORVASTATIN CALCIUM 40 MG TABLET PO SCH (09:03)
[2019-03-25] MEDS: ASPIRIN 81 MG CHEWABLE TABLET PO SCH (09:03)
[2019-03-25] MEDS: RINGERS SOLUTION,LACTATED 1,000 ML IV SCH ×2 (09:03→18:59)
[2019-03-25 10:10] LABS: SITE, BLOOD GAS LFT RADIAL; SOURCE, BLOOD GAS ARTERIAL; TEMPERATURE, FAHRENHEIT, BG 97.5 FAHREN (96.0-98.6)
[2019-03-25 10:11] LABS: ABG BASE EXCESS -7.6 mmol/L (-2.0-3.0); ABG CARBOXYHEMOGLOBIN 0.4 % (0.0-1.5); ABG HCO3 18.6 mmol/L (22.0-26.0); ABG METHEMOGLOBIN 0.3 % (0.0-1.5); ABG OXYHEMOGLOBIN 97.4 % (94.0-100.0); ABG PCO2 44 mmHg (35-45); ABG PH 7.264 (7.35-7.450); ABG TOTAL HEMOGLOBIN 9.4 G/dL (12.0-18.0); PO2, ARTERIAL BG 135.6 mmHg (79.0-87.0)
[2019-03-25 10:12] LABS: ABG A-A DIFF O2 177.2 mmHg (10-20.0); ABG OXYGEN CONTENT 13.2 mL/dL (15.0-23.0); ABG OXYGEN SATURATION 98.1 % (95.0-98.0); O2 DEVICE,BLOOD GAS VENTILATOR (ROOM AIR); PEEP,BG 5 cm H2O; VT, ABG 500 ml
[2019-03-25] MEDS: ACETAMINOPHEN 325 MG TABLET PO PRN (10:24)
[2019-03-25] MEDS: AMIODARONE HCL 200 MG TABLET PO SCH ×2 (10:25→20:50)
[2019-03-25] MEDS ORDERED: SODIUM CHLORIDE 0.9% 250 ML IV ONE ×2 (11:12→16:58)
[2019-03-25] MEDS ORDERED: PHYTONADIONE 10 MG/1 ML AMP SQ ONE (11:15)
[2019-03-25 12:03] LABS: HEMATOCRIT 28.6 % (41-53); HEMOGLOBIN 8.9 g/dL (13.5-17.5); MEAN CORPUSCULAR HEMOGLOBIN 28.6 pg (26.0-34.0); MEAN CORPUSCULAR HGB CONC 31.1 G/dL (31.0-37.0); MEAN CORPUSCULAR VOLUME 92 fL (80-100); PLATELET COUNT (AUTO) 538 K/uL (150-450); RED BLOOD CELL COUNT(AUTO) 3.11 MIL/uL (4.50-5.90); RED CELL DISTRIBUTION WIDTH 16.7 % (11.5-14.5)
[2019-03-25] MEDS ORDERED: VASOPRESSIN 40 UNITS in DEXTROSE 5%-WATER 98 ML IV PRN (12:14)
[2019-03-25] MEDS ORDERED: SODIUM CHLORIDE 0.9% 500 ML IV ONE ×2 (12:30→13:04)
[2019-03-25] MEDS: PHENYLEPHRINE 200 MG/D5%-WATER 250 ML IV PRN ×2 (12:32→18:21)
[2019-03-25 12:40] LABS: BAND NEUTROPHILS % (MANUAL) 7 % (0-5); LYMPHOCYTES % (MANUAL) 8 % (22-44); MONOCYTES % (MANUAL) 5 % (2-9); MYELOCYTES % 3 % (0-0); SEGMENTED NEUTROPHILS % 77 % (40-70)
[2019-03-25] MEDS ORDERED: SODIUM CHLORIDE 0.9% 100 ML ONE (12:46)
[2019-03-25] MEDS ORDERED: SODIUM BICARBONATE [ADULT] 8.4% 50 MEQ/50 ML SYRINGE IVP ONE (13:19)
[2019-03-25] MEDS ORDERED: CALCIUM GLUCONATE 100 MG/ML 10 ML IVP ONE (13:20)
[2019-03-25] MEDS ORDERED: CALCIUM CHLORIDE 100 MG/ML 10 ML SYRINGE IVP ONE (13:21)
[2019-03-25 14:25] LABS: SITE, BLOOD GAS ARTERIAL LINE; SOURCE, BLOOD GAS ARTERIAL
[2019-03-25 14:26] LABS: TEMPERATURE, FAHRENHEIT, BG 97.4 FAHREN (96.0-98.6)
[2019-03-25 14:27] LABS: ABG PCO2 42 mmHg (35-45); ABG PH 7.194 (7.35-7.450); PO2, ARTERIAL BG 152.1 mmHg (79.0-87.0)
[2019-03-25 14:28] LABS: ABG A-A DIFF O2 158.5 mmHg (10-20.0); ABG BASE EXCESS -12.4 mmol/L (-2.0-3.0); ABG CARBOXYHEMOGLOBIN 0.3 % (0.0-1.5); ABG HCO3 15.1 mmol/L (22.0-26.0); ABG METHEMOGLOBIN 0.1 % (0.0-1.5); ABG OXYGEN SATURATION 98.3 % (95.0-98.0); ABG OXYHEMOGLOBIN 97.9 % (94.0-100.0); ABG TOTAL HEMOGLOBIN 9.9 G/dL (12.0-18.0); O2 DEVICE,BLOOD GAS VENTILATOR (ROOM AIR); PEEP,BG 5 cm H2O; VT, ABG 500 ml
[2019-03-25 15:25] LABS: SITE, BLOOD GAS ARTERIAL LINE; SOURCE, BLOOD GAS ARTERIAL; TEMPERATURE, FAHRENHEIT, BG 97.3 FAHREN (96.0-98.6)
[2019-03-25 15:26] LABS: O2 DEVICE,BLOOD GAS VENTILATOR (ROOM AIR); PEEP,BG 5 cm H2O; VT, ABG 500 ml
[2019-03-25] MEDS: PROPOFOL 1000 MG/ISO-OSM 100 ML IV PRN ×2 (15:30→22:05)
[2019-03-25 15:32] LABS: HEMATOCRIT 26.9 % (41-53); HEMOGLOBIN 8.8 g/dL (13.5-17.5); MEAN CORPUSCULAR HEMOGLOBIN 28.7 pg (26.0-34.0); MEAN CORPUSCULAR HGB CONC 32.7 G/dL (31.0-37.0); MEAN CORPUSCULAR VOLUME 88 fL (80-100); PLATELET COUNT (AUTO) 369 K/uL (150-450); RED BLOOD CELL COUNT(AUTO) 3.06 MIL/uL (4.50-5.90); RED CELL DISTRIBUTION WIDTH 15.7 % (11.5-14.5)
[2019-03-25 15:33] LABS: ABG PCO2 46 mmHg (35-45); ABG PH 7.324 (7.35-7.450)
[2019-03-25 15:34] LABS: ABG BASE EXCESS -2.6 mmol/L (-2.0-3.0); ABG CARBOXYHEMOGLOBIN 0.3 % (0.0-1.5); ABG HCO3 22.3 mmol/L (22.0-26.0); ABG METHEMOGLOBIN 0.3 % (0.0-1.5); ABG OXYGEN CONTENT 12.8 mL/dL (15.0-23.0); ABG OXYGEN SATURATION 96.5 % (95.0-98.0); ABG OXYHEMOGLOBIN 95.9 % (94.0-100.0); ABG TOTAL HEMOGLOBIN 9.4 G/dL (12.0-18.0); PO2, ARTERIAL BG 89.2 mmHg (79.0-87.0)
[2019-03-25 15:37] LABS: ABG A-A DIFF O2 216.3 mmHg (10-20.0)
[2019-03-25 16:40] LABS: D-DIMER 4.44 mg/L FEU (0.00-0.50); FIBRINOGEN 473 mg/dL (200-400); INR 1.7 (0.9-1.1); PROTHROMBIN TIME 17.3 SEC (9.4-11.6)
[2019-03-25 16:42] LABS: FIBRIN SPLIT PRODUCTS Greater than 40 mcg/mL (<10)
[2019-03-25] MEDS ORDERED: WARFARIN SODIUM 3 MG TABLET PO ONE (17:00)
[2019-03-25 17:39] LABS: BAND NEUTROPHILS % (MANUAL) 11 % (0-5); LYMPHOCYTES % (MANUAL) 3 % (22-44); METAMYELOCYTES % 1 % (0-0); MONOCYTES % (MANUAL) 2 % (2-9); MYELOCYTES % 3 % (0-0); SEGMENTED NEUTROPHILS % 80 % (40-70)
[2019-03-25] MEDS: MORPHINE SULFATE 2 MG/ML SYRINGE IVP PRN (17:55)
[2019-03-25 18:44] LABS: HEMATOCRIT 25.3 % (41-53); HEMOGLOBIN 8.5 g/dL (13.5-17.5)
[2019-03-25 18:58] LABS: INR 1.8 (0.9-1.1); PROTHROMBIN TIME 18.5 SEC (9.4-11.6)
[2019-03-25] MEDS: SODIUM CHLORIDE 0.9% IV SCH (19:45)
[2019-03-25] MEDS: DAPTOMYCIN IV SCH (19:45)
[2019-03-25 23:48] LABS: HEMATOCRIT 25.4 % (41-53); HEMOGLOBIN 8.4 g/dL (13.5-17.5)
[2019-03-25 23:58] LABS: INR 1.8 (0.9-1.1); PROTHROMBIN TIME 18.1 SEC (9.4-11.6)
[2019-03-26] VITALS (9 sets, daily range): BP systolic 109–146; BP diastolic 50–67
[2019-03-26] MEDS: ALBUTEROL SULFATE 2.5 MG/0.5 ML NEB SOLUTION NEB SCH ×4 (02:00→21:28)
[2019-03-26] MEDS: IPRATROPIUM BROMIDE 0.5 MG/2.5 ML NEB SOLUTION NEB SCH ×4 (02:01→21:28)
[2019-03-26 03:18] LABS: HEMATOCRIT 23.7 % (41-53); HEMOGLOBIN 8.1 g/dL (13.5-17.5)
[2019-03-26 03:28] LABS: INR 1.8 (0.9-1.1); PROTHROMBIN TIME 18.1 SEC (9.4-11.6)
[2019-03-26] MEDS: PROPOFOL 1000 MG/ISO-OSM 100 ML IV PRN ×6 (03:32→23:32)
[2019-03-26] MEDS: RINGERS SOLUTION,LACTATED 1,000 ML IV SCH (03:51)
[2019-03-26 05:03] LABS: BASOPHILS % (AUTO) 0.2 % (0.0-2.0); EOSINOPHILS % (AUTO) 0.3 % (1.0-6.0); HEMATOCRIT 23.4 % (41-53); LYMPHOCYTES # (AUTO) 1.5 K/uL (1.0-4.8); LYMPHOCYTES % (AUTO) 5.2 % (22.0-44.0); MEAN CORPUSCULAR HEMOGLOBIN 29.5 pg (26.0-34.0); MEAN CORPUSCULAR HGB CONC 34.2 G/dL (31.0-37.0); MEAN CORPUSCULAR VOLUME 86 fL (80-100); MONOCYTES # (AUTO) 1.4 K/uL (0.1-1.0); NEUTROPHILS # (AUTO) 25.6 K/uL (1.8-7.7); PLATELET COUNT (AUTO) 393 K/uL (150-450); RED BLOOD CELL COUNT(AUTO) 2.71 MIL/uL (4.50-5.90); RED CELL DISTRIBUTION WIDTH 15.2 % (11.5-14.5)
[2019-03-26 05:07] LABS: NEUTROPHILS % (AUTO) 89.3 % (40.0-70.0)
[2019-03-26 05:22] LABS: CALCIUM, TOTAL 7.8 mg/dL (8.8-10.5); CREATININE 3.78 mg/dL (0.60-1.30); MAGNESIUM 2.1 mg/dL (1.80-2.40); PHOSPHORUS 7.5 mg/dL (2.5-4.9); POTASSIUM 5.2 mmol/L (3.5-5.1); THYROID STIMULATING HORMONE 2.34 uIU/mL (0.36-3.74)
[2019-03-26 05:25] LABS: PLATELET MORPHOLOGY COMMENT LARGE PLTS PRESENT
[2019-03-26] MEDS: LEVOTHYROXINE SODIUM 100 MCG TABLET PO SCH (06:07)
[2019-03-26] MEDS: HYPROMELLOSE 0.5% 15 ML OPHTHALMIC SOLUTION OU SCH ×3 (06:08→17:24)
[2019-03-26 08:35] LABS: HEMATOCRIT 23.3 % (41-53)
[2019-03-26 08:42] LABS: INR 1.7 (0.9-1.1); PROTHROMBIN TIME 17.6 SEC (9.4-11.6)
[2019-03-26] MEDS: AMIODARONE HCL 200 MG TABLET PO SCH ×2 (09:00→21:00)
[2019-03-26] MEDS: FUROSEMIDE 40 MG TABLET PO SCH (09:00)
[2019-03-26] MEDS: METOPROLOL SUCCINATE 50 MG ER TABLET PO SCH (09:00)
[2019-03-26] MEDS: LOSARTAN POTASSIUM 50 MG TABLET PO SCH (09:00)
[2019-03-26] MEDS: ASPIRIN 81 MG CHEWABLE TABLET PO SCH (09:00)
[2019-03-26] MEDS: HydrALAZINE HCL 50 MG TABLET PO SCH ×2 (09:00→21:00)
[2019-03-26] MEDS: LISINOPRIL 10 MG TABLET PO SCH (09:00)
[2019-03-26] MEDS: AmLODIPine BESYLATE 2.5 MG TABLET PO SCH ×2 (09:00→21:00)
[2019-03-26] MEDS: MethylPREDNISolone SOD SUCC 125 MG/2 ML VIAL IVP SCH (09:50)
[2019-03-26] MEDS: DOCUSATE SODIUM 100 MG CAPSULE PO SCH ×2 (09:51→21:53)
[2019-03-26] MEDS: ATORVASTATIN CALCIUM 40 MG TABLET PO SCH (09:51)
[2019-03-26 10:03] LABS: ABG A-A DIFF O2 101.1 mmHg (10-20.0); ABG BASE EXCESS -4.9 mmol/L (-2.0-3.0); ABG CARBOXYHEMOGLOBIN 0.3 % (0.0-1.5); ABG HCO3 20.9 mmol/L (22.0-26.0); ABG METHEMOGLOBIN 0.3 % (0.0-1.5); ABG OXYGEN CONTENT 11.4 mL/dL (15.0-23.0); ABG OXYGEN SATURATION 97.7 % (95.0-98.0); ABG OXYHEMOGLOBIN 97.1 % (94.0-100.0); ABG PCO2 31 mmHg (35-45); ABG PH 7.415 (7.35-7.450); ABG TOTAL HEMOGLOBIN 8.2 G/dL (12.0-18.0); SOURCE, BLOOD GAS ARTERIAL; TEMPERATURE, FAHRENHEIT, BG 98.6 FAHREN (96.0-98.6)
[2019-03-26 10:04] LABS: O2 DEVICE,BLOOD GAS VENTILATOR (ROOM AIR); PEEP,BG 5 cm H2O; SITE, BLOOD GAS ARTERIAL LINE; VT, ABG 500 ml
[2019-03-26] MEDS ORDERED: SODIUM ZIRCONIUM CYCLOSILICATE 5 GM POWDER PACKET NG ONE (10:15)
[2019-03-26] MEDS: SODIUM BICARBONATE 75 MEQ in SODIUM CHLORIDE 0.45% 1,000 ML IV SCH ×2 (11:04→21:26)
[2019-03-26 16:25] LABS: CALCIUM, TOTAL 7.3 mg/dL (8.8-10.5); CREATININE 4.48 mg/dL (0.60-1.30); MAGNESIUM 2.3 mg/dL (1.80-2.40); POTASSIUM 4.7 mmol/L (3.5-5.1)
[2019-03-26 16:46] LABS: INR 1.8 (0.9-1.1)
[2019-03-26] MEDS ORDERED: SODIUM CHLORIDE 0.9% 500 ML IV ONE (17:47)
[2019-03-26] MEDS ORDERED: SODIUM CHLORIDE 0.9% 250 ML IV ONE (17:57)
[2019-03-26 18:09] LABS: ALBUMIN 1.9 g/dL (3.4-5.0); BILIRUBIN,DIRECT 0.1 mg/dL (0.00-0.20); BILIRUBIN,TOTAL 0.3 mg/dL (0.1-1.0); TOTAL PROTEIN, SERUM 6.5 g/dL (6.4-8.2)
[2019-03-26 19:27] LABS: APPEARANCE,URINE CLOUDY (CLEAR); BILIRUBIN,URINE NEGATIVE (NEGATIVE); GLUCOSE, URINE (UA) 100 mg/dL (NEGATIVE); KETONES,URINE NEGATIVE (NEGATIVE); LEUKOCYTE ESTERASE ,URINE NEGATIVE (NEGATIVE); NITRATE,URINE NEGATIVE (NEGATIVE); OCCULT BLOOD,URINE NEGATIVE (NEGATIVE); PROTEIN,URINE SEE CONFIRM (NEGATIVE); UROBILINOGEN,URINE 0.2 mg/dL (<=1.0)
[2019-03-26 19:39] LABS: BACTERIA,URINE Few /HPF (None Seen); RBC,URINE 0-2 /HPF (0-2); SQUAMOUS EPITHELIAL CELL,UR Few /LPF (None Seen); SULFOSALICYLIC ACID,URINE 3+ (Negative)
[2019-03-27] VITALS (11 sets, daily range): BP systolic 110–185; BP diastolic 42–70
[2019-03-27] MEDS: ALBUTEROL SULFATE 2.5 MG/0.5 ML NEB SOLUTION NEB SCH ×4 (01:14→19:39)
[2019-03-27] MEDS: IPRATROPIUM BROMIDE 0.5 MG/2.5 ML NEB SOLUTION NEB SCH ×4 (01:14→19:40)
[2019-03-27] MEDS: PROPOFOL 1000 MG/ISO-OSM 100 ML IV PRN ×5 (03:05→20:48)
[2019-03-27] MEDS ORDERED: SODIUM CHLORIDE 0.9% 500 ML IV ONE ×2 (03:20→15:00)
[2019-03-27] MEDS ORDERED: SODIUM CHLORIDE 0.9% 250 ML IV ONE ×3 (03:20→23:40)
[2019-03-27] MEDS: MORPHINE SULFATE 2 MG/ML SYRINGE IVP PRN ×3 (03:30→11:50)
[2019-03-27 05:15] LABS: BASOPHILS % (AUTO) 0.1 % (0.0-2.0); EOSINOPHILS % (AUTO) 0.3 % (1.0-6.0); LYMPHOCYTES # (AUTO) 1.1 K/uL (1.0-4.8); LYMPHOCYTES % (AUTO) 4.7 % (22.0-44.0); MEAN CORPUSCULAR HEMOGLOBIN 29.9 pg (26.0-34.0); MEAN CORPUSCULAR HGB CONC 34.5 G/dL (31.0-37.0); MEAN CORPUSCULAR VOLUME 87 fL (80-100); MONOCYTES # (AUTO) 1.2 K/uL (0.1-1.0); MONOCYTES % (AUTO) 5.4 % (2.0-9.0); NEUTROPHILS # (AUTO) 20.3 K/uL (1.8-7.7); PLATELET COUNT (AUTO) 329 K/uL (150-450); RED BLOOD CELL COUNT(AUTO) 2.29 MIL/uL (4.50-5.90); RED CELL DISTRIBUTION WIDTH 15.3 % (11.5-14.5)
[2019-03-27 05:23] LABS: INR 1.9 (0.9-1.1); PROTHROMBIN TIME 19.7 SEC (9.4-11.6)
[2019-03-27 05:26] LABS: NEUTROPHILS % (AUTO) 89.5 % (40.0-70.0)
[2019-03-27 05:27] LABS: HEMATOCRIT 19.8 % (41-53); HEMOGLOBIN 6.8 g/dL (13.5-17.5)
[2019-03-27 05:39] LABS: CALCIUM, TOTAL 6.6 mg/dL (8.8-10.5); CREATININE 4.91 mg/dL (0.60-1.30); POTASSIUM 4.8 mmol/L (3.5-5.1)
[2019-03-27] MEDS: HYPROMELLOSE 0.5% 15 ML OPHTHALMIC SOLUTION OU SCH ×3 (06:09→18:05)
[2019-03-27] MEDS: LEVOTHYROXINE SODIUM 100 MCG TABLET PO SCH (07:01)
[2019-03-27] MEDS: SODIUM BICARBONATE 75 MEQ in SODIUM CHLORIDE 0.45% 1,000 ML IV SCH (07:38)
[2019-03-27] MEDS: ATORVASTATIN CALCIUM 40 MG TABLET PO SCH (08:32)
[2019-03-27] MEDS: DOCUSATE SODIUM 100 MG CAPSULE PO SCH ×2 (08:32→20:35)
[2019-03-27] MEDS: AMIODARONE HCL 200 MG TABLET PO SCH ×2 (08:32→20:34)
[2019-03-27] MEDS: METOPROLOL SUCCINATE 50 MG ER TABLET PO SCH (08:32)
[2019-03-27] MEDS: ASPIRIN 81 MG CHEWABLE TABLET PO SCH (09:00)
[2019-03-27] MEDS: HydrALAZINE HCL 50 MG TABLET PO SCH ×2 (09:00→20:34)
[2019-03-27] MEDS: AmLODIPine BESYLATE 2.5 MG TABLET PO SCH ×2 (09:00→20:34)
[2019-03-27] MEDS ORDERED: DILTIAZEM HCL 125 MG in DEXTROSE 5%-WATER 100 ML IV PRN (10:15)
[2019-03-27] MEDS ORDERED: FUROSEMIDE 40 MG/4 ML VIAL IVP ONE (10:15)
[2019-03-27 15:06] LABS: BASOPHILS % (AUTO) 0.8 % (0.0-2.0); HEMATOCRIT 22.8 % (41-53); HEMOGLOBIN 7.9 g/dL (13.5-17.5); MEAN CORPUSCULAR HEMOGLOBIN 29.7 pg (26.0-34.0); MEAN CORPUSCULAR HGB CONC 34.7 G/dL (31.0-37.0); MEAN CORPUSCULAR VOLUME 86 fL (80-100); MONOCYTES # (AUTO) 1.3 K/uL (0.1-1.0); MONOCYTES % (AUTO) 6.3 % (2.0-9.0); NEUTROPHILS # (AUTO) 17.3 K/uL (1.8-7.7); PLATELET COUNT (AUTO) 318 K/uL (150-450); RED BLOOD CELL COUNT(AUTO) 2.67 MIL/uL (4.50-5.90)
[2019-03-27 15:15] LABS: NEUTROPHILS % (AUTO) 86.9 % (40.0-70.0)
[2019-03-27 15:23] LABS: CALCIUM, TOTAL 7.5 mg/dL (8.8-10.5); CREATININE 5.14 mg/dL (0.60-1.30); INR 1.9 (0.9-1.1); MAGNESIUM 2.5 mg/dL (1.80-2.40); PHOSPHORUS 8.2 mg/dL (2.5-4.9); POTASSIUM 4.5 mmol/L (3.5-5.1); PROTHROMBIN TIME 19.3 SEC (9.4-11.6)
[2019-03-27] MEDS: SODIUM CHLORIDE 0.9% IV SCH (20:35)
[2019-03-27] MEDS: DAPTOMYCIN IV SCH (20:35)
[2019-03-28] VITALS (11 sets, daily range): BP systolic 118–191; BP diastolic 43–80
[2019-03-28] MEDS: PROPOFOL 1000 MG/ISO-OSM 100 ML IV PRN ×7 (00:18→20:39)
[2019-03-28] MEDS: MORPHINE SULFATE 2 MG/ML SYRINGE IVP PRN ×3 (00:50→15:29)
[2019-03-28] MEDS: IPRATROPIUM BROMIDE 0.5 MG/2.5 ML NEB SOLUTION NEB SCH ×4 (01:41→20:05)
[2019-03-28] MEDS: ALBUTEROL SULFATE 2.5 MG/0.5 ML NEB SOLUTION NEB SCH ×4 (01:41→20:05)
[2019-03-28 05:37] LABS: BASOPHILS % (AUTO) 0.2 % (0.0-2.0); EOSINOPHILS % (AUTO) 3.2 % (1.0-6.0); HEMATOCRIT 23.5 % (41-53); HEMOGLOBIN 8.3 g/dL (13.5-17.5); LYMPHOCYTES % (AUTO) 6.2 % (22.0-44.0); MEAN CORPUSCULAR HEMOGLOBIN 30.2 pg (26.0-34.0); MEAN CORPUSCULAR HGB CONC 35.2 G/dL (31.0-37.0); MEAN CORPUSCULAR VOLUME 86 fL (80-100); MONOCYTES # (AUTO) 0.9 K/uL (0.1-1.0); MONOCYTES % (AUTO) 5.9 % (2.0-9.0); NEUTROPHILS # (AUTO) 13.2 K/uL (1.8-7.7); NEUTROPHILS % (AUTO) 84.5 % (40.0-70.0); PLATELET COUNT (AUTO) 327 K/uL (150-450); RED BLOOD CELL COUNT(AUTO) 2.73 MIL/uL (4.50-5.90); RED CELL DISTRIBUTION WIDTH 15.1 % (11.5-14.5)
[2019-03-28 05:50] LABS: BILIRUBIN,TOTAL 0.3 mg/dL (0.1-1.0); CALCIUM, TOTAL 7.5 mg/dL (8.8-10.5); CREATININE 5.21 mg/dL (0.60-1.30); INR 1.9 (0.9-1.1); MAGNESIUM 2.7 mg/dL (1.80-2.40); POTASSIUM 4.5 mmol/L (3.5-5.1); PROTHROMBIN TIME 19.5 SEC (9.4-11.6); TOTAL PROTEIN, SERUM 6.2 g/dL (6.4-8.2)
[2019-03-28] MEDS: HYPROMELLOSE 0.5% 15 ML OPHTHALMIC SOLUTION OU SCH ×3 (05:59→17:33)
[2019-03-28] MEDS: LEVOTHYROXINE SODIUM 100 MCG TABLET PO SCH (06:25)
[2019-03-28] MEDS: HydrALAZINE HCL 50 MG TABLET PO SCH ×3 (07:35→20:36)
[2019-03-28] MEDS: AmLODIPine BESYLATE 2.5 MG TABLET PO SCH (07:55)
[2019-03-28] MEDS: DOCUSATE SODIUM 100 MG CAPSULE PO SCH ×2 (07:55→20:36)
[2019-03-28] MEDS: METOPROLOL SUCCINATE 50 MG ER TABLET PO SCH (07:55)
[2019-03-28] MEDS: AMIODARONE HCL 200 MG TABLET PO SCH ×2 (07:55→20:37)
[2019-03-28] MEDS: ATORVASTATIN CALCIUM 40 MG TABLET PO SCH (07:55)
[2019-03-28] MEDS: ASPIRIN 81 MG CHEWABLE TABLET PO SCH (09:00)
[2019-03-28] MEDS ORDERED: AmLODIPine BESYLATE 5 MG TABLET PO ONE (10:00)
[2019-03-28] MEDS ORDERED: HydrALAZINE HCL 20 MG/ML VIAL IVP PRN (10:00)
[2019-03-28] MEDS: PHYTONADIONE 10 MG/1 ML AMP SQ SCH (10:15)
[2019-03-28] MEDS ORDERED: SODIUM CHLORIDE 0.9% 250 ML IV ONE (10:34)
[2019-03-28] MEDS: HydrALAZINE HCL 20 MG/ML VIAL IVP PRN ×2 (11:19→13:59)
[2019-03-29] VITALS (7 sets, daily range): BP systolic 117–143; BP diastolic 49–65
[2019-03-29] MEDS: PROPOFOL 1000 MG/ISO-OSM 100 ML IV PRN ×6 (00:37→22:47)
[2019-03-29] MEDS: ALBUTEROL SULFATE 2.5 MG/0.5 ML NEB SOLUTION NEB SCH ×4 (02:10→20:00)
[2019-03-29] MEDS: IPRATROPIUM BROMIDE 0.5 MG/2.5 ML NEB SOLUTION NEB SCH ×4 (02:10→20:00)
[2019-03-29 05:20] LABS: BASOPHILS % (AUTO) 0.3 % (0.0-2.0); EOSINOPHILS % (AUTO) 7.7 % (1.0-6.0); HEMATOCRIT 25.7 % (41-53); HEMOGLOBIN 8.8 g/dL (13.5-17.5); LYMPHOCYTES % (AUTO) 7.8 % (22.0-44.0); MEAN CORPUSCULAR HEMOGLOBIN 29.8 pg (26.0-34.0); MEAN CORPUSCULAR HGB CONC 34.2 G/dL (31.0-37.0); MEAN CORPUSCULAR VOLUME 87 fL (80-100); MONOCYTES # (AUTO) 0.8 K/uL (0.1-1.0); MONOCYTES % (AUTO) 6.8 % (2.0-9.0); NEUTROPHILS # (AUTO) 9.5 K/uL (1.8-7.7); NEUTROPHILS % (AUTO) 77.4 % (40.0-70.0); PLATELET COUNT (AUTO) 343 K/uL (150-450); RED BLOOD CELL COUNT(AUTO) 2.95 MIL/uL (4.50-5.90)
[2019-03-29 05:29] LABS: INR 1.6 (0.9-1.1); PROTHROMBIN TIME 16.1 SEC (9.4-11.6)
[2019-03-29 05:34] LABS: ALBUMIN 1.9 g/dL (3.4-5.0); BILIRUBIN,TOTAL 0.4 mg/dL (0.1-1.0); CALCIUM, TOTAL 7.7 mg/dL (8.8-10.5); CREATININE 5.25 mg/dL (0.60-1.30); MAGNESIUM 2.7 mg/dL (1.80-2.40); POTASSIUM 4.7 mmol/L (3.5-5.1); TOTAL PROTEIN, SERUM 6.9 g/dL (6.4-8.2)
[2019-03-29] MEDS: LEVOTHYROXINE SODIUM 100 MCG TABLET PO SCH (06:03)
[2019-03-29] MEDS: HYPROMELLOSE 0.5% 15 ML OPHTHALMIC SOLUTION OU SCH ×3 (06:05→18:17)
[2019-03-29] MEDS: ASPIRIN 81 MG CHEWABLE TABLET PO SCH (09:00)
[2019-03-29] MEDS: AmLODIPine BESYLATE 10 MG TABLET PO SCH (09:13)
[2019-03-29] MEDS: ATORVASTATIN CALCIUM 40 MG TABLET PO SCH (09:14)
[2019-03-29] MEDS: AMIODARONE HCL 200 MG TABLET PO SCH ×2 (09:14→20:08)
[2019-03-29] MEDS: METOPROLOL SUCCINATE 50 MG ER TABLET PO SCH (09:14)
[2019-03-29] MEDS: HydrALAZINE HCL 50 MG TABLET PO SCH ×3 (09:14→20:08)
[2019-03-29] MEDS: DOCUSATE SODIUM 100 MG CAPSULE PO SCH ×2 (09:14→20:08)
[2019-03-29] MEDS: PHYTONADIONE 10 MG/1 ML AMP SQ SCH (09:15)
[2019-03-29] MEDS ORDERED: 0.9% SODIUM CHLORIDE 15 ML NEB SOLUTION NEB ONE (18:11)
[2019-03-29] MEDS: MORPHINE SULFATE 2 MG/ML SYRINGE IVP PRN ×2 (18:16→22:47)
[2019-03-29] MEDS: DAPTOMYCIN IV SCH (20:07)
[2019-03-29] MEDS: SODIUM CHLORIDE 0.9% IV SCH (20:07)
[2019-03-30] VITALS (8 sets, daily range): BP systolic 120–176; BP diastolic 54–82
[2019-03-30] MEDS: ALBUTEROL SULFATE 2.5 MG/0.5 ML NEB SOLUTION NEB SCH ×4 (01:48→19:47)
[2019-03-30] MEDS: IPRATROPIUM BROMIDE 0.5 MG/2.5 ML NEB SOLUTION NEB SCH ×4 (01:48→19:47)
[2019-03-30] MEDS: PROPOFOL 1000 MG/ISO-OSM 100 ML IV PRN ×3 (01:56→08:46)
[2019-03-30 05:12] LABS: BASOPHILS % (AUTO) 0.2 % (0.0-2.0); HEMATOCRIT 26.7 % (41-53); HEMOGLOBIN 9.1 g/dL (13.5-17.5); LYMPHOCYTES # (AUTO) 1.1 K/uL (1.0-4.8); LYMPHOCYTES % (AUTO) 7.6 % (22.0-44.0); MEAN CORPUSCULAR HEMOGLOBIN 29.9 pg (26.0-34.0); MEAN CORPUSCULAR HGB CONC 34.2 G/dL (31.0-37.0); MEAN CORPUSCULAR VOLUME 88 fL (80-100); MONOCYTES # (AUTO) 0.9 K/uL (0.1-1.0); MONOCYTES % (AUTO) 6.4 % (2.0-9.0); NEUTROPHILS # (AUTO) 9.9 K/uL (1.8-7.7); PLATELET COUNT (AUTO) 360 K/uL (150-450); RED BLOOD CELL COUNT(AUTO) 3.05 MIL/uL (4.50-5.90); RED CELL DISTRIBUTION WIDTH 15.1 % (11.5-14.5)
[2019-03-30 05:15] LABS: EOSINOPHILS % (AUTO) 15.8 % (1.0-6.0)
[2019-03-30 05:17] LABS: CALCIUM, TOTAL 8.1 mg/dL (8.8-10.5); CREATININE 4.98 mg/dL (0.60-1.30); POTASSIUM 4.7 mmol/L (3.5-5.1)
[2019-03-30 05:19] LABS: INR 1.2 (0.9-1.1); PROTHROMBIN TIME 11.7 SEC (9.4-11.6)
[2019-03-30] MEDS: LEVOTHYROXINE SODIUM 100 MCG TABLET PO SCH (05:58)
[2019-03-30] MEDS: HYPROMELLOSE 0.5% 15 ML OPHTHALMIC SOLUTION OU SCH ×3 (05:58→18:04)
[2019-03-30] MEDS: DOCUSATE SODIUM 100 MG CAPSULE PO SCH ×2 (08:37→19:59)
[2019-03-30] MEDS: ASPIRIN 81 MG CHEWABLE TABLET PO SCH (08:37)
[2019-03-30] MEDS: AmLODIPine BESYLATE 10 MG TABLET PO SCH (08:44)
[2019-03-30] MEDS: HydrALAZINE HCL 50 MG TABLET PO SCH ×3 (08:44→19:59)
[2019-03-30] MEDS: METOPROLOL SUCCINATE 50 MG ER TABLET PO SCH (08:44)
[2019-03-30] MEDS: AMIODARONE HCL 200 MG TABLET PO SCH ×2 (08:44→19:59)
[2019-03-30] MEDS: PHYTONADIONE 10 MG/1 ML AMP SQ SCH (08:44)
[2019-03-30] MEDS: ATORVASTATIN CALCIUM 40 MG TABLET PO SCH (08:44)
[2019-03-30 14:03] LABS: ABG A-A DIFF O2 112.5 mmHg (10-20.0); ABG BASE EXCESS -2.7 mmol/L (-2.0-3.0); ABG HCO3 22.7 mmol/L (22.0-26.0); ABG METHEMOGLOBIN 0.3 % (0.0-1.5); ABG OXYGEN CONTENT 13.5 mL/dL (15.0-23.0); ABG OXYGEN SATURATION 96.5 % (95.0-98.0); ABG OXYHEMOGLOBIN 96.2 % (94.0-100.0); ABG PCO2 33 mmHg (35-45); ABG TOTAL HEMOGLOBIN 9.9 G/dL (12.0-18.0); PO2, ARTERIAL BG 97.9 mmHg (79.0-87.0); SOURCE, BLOOD GAS ARTERIAL; TEMPERATURE, FAHRENHEIT, BG 99.6 FAHREN (96.0-98.6)
[2019-03-30 14:06] LABS: CPAP, BG 0 cm H2O; O2 DEVICE,BLOOD GAS VENTILATOR (ROOM AIR); PRESSURE SUPPORT, BG 8 cm H2O; SITE, BLOOD GAS ARTERIAL LINE
[2019-03-30] MEDS: MORPHINE SULFATE 2 MG/ML SYRINGE IVP PRN (15:42)
[2019-03-31] VITALS (7 sets, daily range): BP systolic 116–190; BP diastolic 48–80
[2019-03-31] MEDS: ALBUTEROL SULFATE 2.5 MG/0.5 ML NEB SOLUTION NEB SCH ×4 (01:42→20:21)
[2019-03-31] MEDS: IPRATROPIUM BROMIDE 0.5 MG/2.5 ML NEB SOLUTION NEB SCH ×4 (01:43→20:21)
[2019-03-31] MEDS: HydrALAZINE HCL 20 MG/ML VIAL IVP PRN (03:16)
[2019-03-31] MEDS: MORPHINE SULFATE 2 MG/ML SYRINGE IVP PRN ×2 (03:46→12:00)
[2019-03-31 05:11] LABS: BASOPHILS % (AUTO) 0.2 % (0.0-2.0); HEMOGLOBIN 9.6 g/dL (13.5-17.5); LYMPHOCYTES # (AUTO) 1.1 K/uL (1.0-4.8); LYMPHOCYTES % (AUTO) 5.5 % (22.0-44.0); MEAN CORPUSCULAR HEMOGLOBIN 29.2 pg (26.0-34.0); MEAN CORPUSCULAR HGB CONC 33.2 G/dL (31.0-37.0); MEAN CORPUSCULAR VOLUME 88 fL (80-100); MONOCYTES # (AUTO) 1.2 K/uL (0.1-1.0); MONOCYTES % (AUTO) 6.1 % (2.0-9.0); NEUTROPHILS # (AUTO) 14.3 K/uL (1.8-7.7); NEUTROPHILS % (AUTO) 72.5 % (40.0-70.0); PLATELET COUNT (AUTO) 379 K/uL (150-450); RED CELL DISTRIBUTION WIDTH 15.1 % (11.5-14.5)
[2019-03-31 05:17] LABS: EOSINOPHILS % (AUTO) 15.7 % (1.0-6.0)
[2019-03-31 05:33] LABS: BILIRUBIN,TOTAL 0.6 mg/dL (0.1-1.0); CALCIUM, TOTAL 8.4 mg/dL (8.8-10.5); CREATININE 4.41 mg/dL (0.60-1.30); POTASSIUM 4.2 mmol/L (3.5-5.1); TOTAL PROTEIN, SERUM 7.7 g/dL (6.4-8.2)
[2019-03-31 06:02] LABS: INR 1.1 (0.9-1.1); PROTHROMBIN TIME 10.9 SEC (9.4-11.6)
[2019-03-31] MEDS: LEVOTHYROXINE SODIUM 100 MCG TABLET PO SCH (06:02)
[2019-03-31] MEDS: HYPROMELLOSE 0.5% 15 ML OPHTHALMIC SOLUTION OU SCH ×3 (06:03→18:14)
[2019-03-31] MEDS: HydrALAZINE HCL 50 MG TABLET PO SCH ×3 (08:48→21:40)
[2019-03-31] MEDS: AmLODIPine BESYLATE 10 MG TABLET PO SCH (08:48)
[2019-03-31] MEDS: ATORVASTATIN CALCIUM 40 MG TABLET PO SCH (08:48)
[2019-03-31] MEDS: AMIODARONE HCL 200 MG TABLET PO SCH ×2 (08:49→21:40)
[2019-03-31] MEDS: ASPIRIN 81 MG CHEWABLE TABLET PO SCH (08:49)
[2019-03-31] MEDS: DOCUSATE SODIUM 100 MG CAPSULE PO SCH ×2 (08:49→21:00)
[2019-03-31] MEDS: METOPROLOL SUCCINATE 50 MG ER TABLET PO SCH (08:49)
[2019-03-31] MEDS: PROPOFOL 1000 MG/ISO-OSM 100 ML IV PRN ×4 (11:39→21:49)
[2019-03-31] MEDS ORDERED: SODIUM CHLORIDE 0.9% 250 ML IV ONE (20:26)
[2019-03-31] MEDS ORDERED: SODIUM CHLORIDE 0.9% 500 ML IV ONE (20:26)
[2019-04-01] VITALS (9 sets, daily range): BP systolic 104–197; BP diastolic 42–77
[2019-04-01] MEDS: IPRATROPIUM BROMIDE 0.5 MG/2.5 ML NEB SOLUTION NEB SCH ×4 (02:49→19:31)
[2019-04-01] MEDS: ALBUTEROL SULFATE 2.5 MG/0.5 ML NEB SOLUTION NEB SCH ×4 (02:50→19:31)
[2019-04-01] MEDS: PROPOFOL 1000 MG/ISO-OSM 100 ML IV PRN ×3 (04:01→13:36)
[2019-04-01] MEDS: HydrALAZINE HCL 20 MG/ML VIAL IVP PRN ×4 (05:09→20:10)
[2019-04-01] MEDS: HYDROCODONE/ACETAMINOPHEN 5-325 MG TABLET PO PRN (05:09)
[2019-04-01] MEDS: HYPROMELLOSE 0.5% 15 ML OPHTHALMIC SOLUTION OU SCH ×3 (05:10→18:00)
[2019-04-01 05:29] LABS: BASOPHILS % (AUTO) 0.5 % (0.0-2.0); HEMATOCRIT 26.1 % (41-53); HEMOGLOBIN 8.6 g/dL (13.5-17.5); LYMPHOCYTES # (AUTO) 0.9 K/uL (1.0-4.8); LYMPHOCYTES % (AUTO) 5.3 % (22.0-44.0); MEAN CORPUSCULAR HEMOGLOBIN 29.4 pg (26.0-34.0); MEAN CORPUSCULAR HGB CONC 33.1 G/dL (31.0-37.0); MEAN CORPUSCULAR VOLUME 89 fL (80-100); MONOCYTES # (AUTO) 1.1 K/uL (0.1-1.0); MONOCYTES % (AUTO) 6.4 % (2.0-9.0); NEUTROPHILS # (AUTO) 11.1 K/uL (1.8-7.7); NEUTROPHILS % (AUTO) 66.6 % (40.0-70.0); PLATELET COUNT (AUTO) 364 K/uL (150-450); RED BLOOD CELL COUNT(AUTO) 2.93 MIL/uL (4.50-5.90); RED CELL DISTRIBUTION WIDTH 15.2 % (11.5-14.5)
[2019-04-01 05:31] LABS: EOSINOPHILS % (AUTO) 21.2 % (1.0-6.0)
[2019-04-01] MEDS: LEVOTHYROXINE SODIUM 100 MCG TABLET PO SCH (05:44)
[2019-04-01 05:59] LABS: ALBUMIN 1.8 g/dL (3.4-5.0); BILIRUBIN,TOTAL 0.6 mg/dL (0.1-1.0); C-REACTIVE PROTEIN QUANT 14.34 mg/dL (0.00-0.30); CALCIUM, TOTAL 8.1 mg/dL (8.8-10.5); CREATININE 4.34 mg/dL (0.60-1.30); POTASSIUM 3.8 mmol/L (3.5-5.1); TOTAL PROTEIN, SERUM 6.8 g/dL (6.4-8.2)
[2019-04-01] MEDS: DOCUSATE SODIUM 100 MG CAPSULE PO SCH ×2 (09:00→20:10)
[2019-04-01] MEDS: AMIODARONE HCL 200 MG TABLET PO SCH ×2 (09:45→20:10)
[2019-04-01] MEDS: AmLODIPine BESYLATE 10 MG TABLET PO SCH (09:46)
[2019-04-01] MEDS: ATORVASTATIN CALCIUM 40 MG TABLET PO SCH (09:46)
[2019-04-01] MEDS: METOPROLOL SUCCINATE 50 MG ER TABLET PO SCH (09:46)
[2019-04-01] MEDS: HydrALAZINE HCL 50 MG TABLET PO SCH ×3 (09:46→20:10)
[2019-04-01] MEDS: ASPIRIN 81 MG CHEWABLE TABLET PO SCH (09:47)
[2019-04-01 10:01] LABS: PHOSPHORUS 4.8 mg/dL (2.5-4.9)
[2019-04-01 17:10] LABS: ABG BASE EXCESS -2.4 mmol/L (-2.0-3.0); ABG PCO2 32 mmHg (35-45); ABG PH 7.442 (7.35-7.450); ABG TOTAL HEMOGLOBIN 12.5 G/dL (12.0-18.0); PO2, ARTERIAL BG 78.3 mmHg (79.0-87.0); SITE, BLOOD GAS LFT RADIAL; SOURCE, BLOOD GAS ARTERIAL; TEMPERATURE, FAHRENHEIT, BG 99.2 FAHREN (96.0-98.6)
[2019-04-01 17:11] LABS: ABG A-A DIFF O2 131.7 mmHg (10-20.0); ABG CARBOXYHEMOGLOBIN 1.2 % (0.0-1.5); ABG METHEMOGLOBIN 0.3 % (0.0-1.5); ABG OXYGEN CONTENT 16.5 mL/dL (15.0-23.0); ABG OXYGEN SATURATION 94.9 % (95.0-98.0); ABG OXYHEMOGLOBIN 93.5 % (94.0-100.0); O2 DEVICE,BLOOD GAS VENTILATOR (ROOM AIR); VENT MODE, BG CPAP (ROOM AIR)
[2019-04-01 17:12] LABS: PRESSURE SUPPORT, BG 8 cm H2O; SPONTANEOUS VT, BG 612 ml
[2019-04-01 17:14] LABS: PEEP,BG 5 cm H2O
[2019-04-01] MEDS: MORPHINE SULFATE 2 MG/ML SYRINGE IVP PRN (20:09)
[2019-04-02] VITALS (8 sets, daily range): BP systolic 131–189; BP diastolic 79–116
[2019-04-02] MEDS: ALBUTEROL SULFATE 2.5 MG/0.5 ML NEB SOLUTION NEB SCH ×4 (01:57→20:03)
[2019-04-02] MEDS: IPRATROPIUM BROMIDE 0.5 MG/2.5 ML NEB SOLUTION NEB SCH ×4 (01:57→20:03)
[2019-04-02] MEDS: MORPHINE SULFATE 2 MG/ML SYRINGE IVP PRN ×2 (03:12→10:47)
[2019-04-02] MEDS: LEVOTHYROXINE SODIUM 100 MCG TABLET PO SCH (05:03)
[2019-04-02] MEDS: HYPROMELLOSE 0.5% 15 ML OPHTHALMIC SOLUTION OU SCH ×3 (05:27→18:06)
[2019-04-02 05:34] LABS: BASOPHILS % (AUTO) 0.5 % (0.0-2.0); EOSINOPHILS % (AUTO) 7.2 % (1.0-6.0); HEMATOCRIT 29.2 % (41-53); HEMOGLOBIN 9.5 g/dL (13.5-17.5); LYMPHOCYTES % (AUTO) 5.9 % (22.0-44.0); MEAN CORPUSCULAR HEMOGLOBIN 29.1 pg (26.0-34.0); MEAN CORPUSCULAR HGB CONC 32.4 G/dL (31.0-37.0); MEAN CORPUSCULAR VOLUME 90 fL (80-100); MONOCYTES # (AUTO) 1.7 K/uL (0.1-1.0); MONOCYTES % (AUTO) 9.5 % (2.0-9.0); NEUTROPHILS # (AUTO) 13.5 K/uL (1.8-7.7); NEUTROPHILS % (AUTO) 76.9 % (40.0-70.0); PLATELET COUNT (AUTO) 373 K/uL (150-450); RED BLOOD CELL COUNT(AUTO) 3.26 MIL/uL (4.50-5.90); RED CELL DISTRIBUTION WIDTH 15.3 % (11.5-14.5)
[2019-04-02 05:58] LABS: CALCIUM, TOTAL 8.6 mg/dL (8.8-10.5); CREATININE 3.94 mg/dL (0.60-1.30); MAGNESIUM 2.9 mg/dL (1.80-2.40)
[2019-04-02] MEDS: DOCUSATE SODIUM 100 MG CAPSULE PO SCH ×2 (09:00→21:00)
[2019-04-02] MEDS: ASPIRIN 81 MG CHEWABLE TABLET PO SCH (09:08)
[2019-04-02] MEDS: HydrALAZINE HCL 50 MG TABLET PO SCH (09:08)
[2019-04-02] MEDS: AmLODIPine BESYLATE 10 MG TABLET PO SCH (09:08)
[2019-04-02] MEDS: ATORVASTATIN CALCIUM 40 MG TABLET PO SCH (09:09)
[2019-04-02] MEDS: AMIODARONE HCL 200 MG TABLET PO SCH ×2 (09:09→21:05)
[2019-04-02] MEDS: METOPROLOL SUCCINATE 50 MG ER TABLET PO SCH (09:10)
[2019-04-02] MEDS: HydrALAZINE HCL 20 MG/ML VIAL IVP PRN (09:43)
[2019-04-02] MEDS ORDERED: DESMOPRESSIN ACETATE 0.1 MG TABLET PO SCH ×2 (09:45→10:45)
[2019-04-02] MEDS ORDERED: DESMOPRESSIN ACETATE 0.2 MG TABLET PO SCH (10:53)
[2019-04-02] MEDS ORDERED: CloNIDine HCL 0.1 MG TABLET PO ONE (12:00)
[2019-04-02] MEDS ORDERED: CloNIDine HCL 0.1 MG TABLET PO PRN (12:15)
[2019-04-02 15:53] LABS: CALCIUM, TOTAL 8.7 mg/dL (8.8-10.5); CREATININE 3.66 mg/dL (0.60-1.30)
[2019-04-02] MEDS: HydrALAZINE HCL 25 MG TABLET PO SCH ×2 (16:27→21:04)
[2019-04-02 23:07] LABS: SODIUM,URINE RANDOM 32 mmol/l (20-110)
[2019-04-02 23:09] LABS: OSMOLALITY,URINE 470 mOS/kg (50-1200)
[2019-04-03 00:09] VITALS: BP 148/106
[2019-04-03] MEDS: ALBUTEROL SULFATE 2.5 MG/0.5 ML NEB SOLUTION NEB SCH ×4 (02:22→20:01)
[2019-04-03] MEDS: IPRATROPIUM BROMIDE 0.5 MG/2.5 ML NEB SOLUTION NEB SCH ×4 (02:22→20:01)
[2019-04-03 04:37] VITALS: BP 145/113
[2019-04-03] MEDS: LEVOTHYROXINE SODIUM 100 MCG TABLET PO SCH (06:12)
[2019-04-03] MEDS: HYPROMELLOSE 0.5% 15 ML OPHTHALMIC SOLUTION OU SCH ×3 (06:12→18:09)
[2019-04-03 07:14] LABS: BASOPHILS % (AUTO) 0.7 % (0.0-2.0); EOSINOPHILS % (AUTO) 3.4 % (1.0-6.0); HEMATOCRIT 32.9 % (41-53); HEMOGLOBIN 10.6 g/dL (13.5-17.5); LYMPHOCYTES # (AUTO) 1.5 K/uL (1.0-4.8); LYMPHOCYTES % (AUTO) 8.6 % (22.0-44.0); MEAN CORPUSCULAR HEMOGLOBIN 29.1 pg (26.0-34.0); MEAN CORPUSCULAR HGB CONC 32.1 G/dL (31.0-37.0); MEAN CORPUSCULAR VOLUME 91 fL (80-100); MONOCYTES # (AUTO) 1.5 K/uL (0.1-1.0); MONOCYTES % (AUTO) 8.4 % (2.0-9.0); NEUTROPHILS # (AUTO) 13.8 K/uL (1.8-7.7); NEUTROPHILS % (AUTO) 78.9 % (40.0-70.0); PLATELET COUNT (AUTO) 355 K/uL (150-450); RED BLOOD CELL COUNT(AUTO) 3.63 MIL/uL (4.50-5.90); RED CELL DISTRIBUTION WIDTH 15.4 % (11.5-14.5)
[2019-04-03 07:27] LABS: INR 1.1 (0.9-1.1); PROTHROMBIN TIME 11.1 SEC (9.4-11.6)
[2019-04-03 07:51] VITALS: BP 163/106
[2019-04-03 07:59] LABS: ALBUMIN 2.2 g/dL (3.4-5.0); BILIRUBIN,TOTAL 0.9 mg/dL (0.1-1.0); CALCIUM, TOTAL 9.2 mg/dL (8.8-10.5); CREATININE 3.68 mg/dL (0.60-1.30)
[2019-04-03] MEDS: HydrALAZINE HCL 25 MG TABLET PO SCH ×3 (09:39→20:45)
[2019-04-03] MEDS: METOPROLOL SUCCINATE 25 MG ER TABLET PO SCH (09:39)
[2019-04-03] MEDS: AmLODIPine BESYLATE 10 MG TABLET PO SCH (09:40)
[2019-04-03] MEDS: ATORVASTATIN CALCIUM 40 MG TABLET PO SCH (09:40)
[2019-04-03] MEDS: DOCUSATE SODIUM 100 MG CAPSULE PO SCH ×2 (09:40→20:56)
[2019-04-03] MEDS: AMIODARONE HCL 200 MG TABLET PO SCH ×2 (09:40→20:46)
[2019-04-03] MEDS: ASPIRIN 81 MG CHEWABLE TABLET PO SCH (09:40)
[2019-04-03] MEDS: DEXTROSE 5%-WATER 1,000 ML IV SCH ×2 (10:00→23:27)
[2019-04-03] MEDS: MORPHINE SULFATE 2 MG/ML SYRINGE IVP PRN (10:06)
[2019-04-03 10:59] VITALS: BP 161/116
[2019-04-03 15:54] LABS: C.DIFF GDH ANTIGEN, Stool Negative (Negative); C.DIFF TOXINS A&B, Stool Negative (Negative)
[2019-04-03 15:58] VITALS: BP 136/79
[2019-04-03 20:30] VITALS: BP 156/79
[2019-04-03] MEDS: LACTOBACILLUS ACIDOPHILUS/BULGARICUS TABLET PO SCH (20:46)
[2019-04-04 00:37] VITALS: BP 150/96
[2019-04-04] MEDS: ALBUTEROL SULFATE 2.5 MG/0.5 ML NEB SOLUTION NEB SCH ×3 (03:11→15:09)
[2019-04-04] MEDS: IPRATROPIUM BROMIDE 0.5 MG/2.5 ML NEB SOLUTION NEB SCH ×3 (03:11→15:09)
[2019-04-04 04:15] VITALS: BP 147/96
[2019-04-04] MEDS: LEVOTHYROXINE SODIUM 100 MCG TABLET PO SCH (05:42)
[2019-04-04] MEDS: HYPROMELLOSE 0.5% 15 ML OPHTHALMIC SOLUTION OU SCH ×2 (05:42→12:00)
[2019-04-04 06:46] LABS: BASOPHILS % (AUTO) 0.6 % (0.0-2.0); EOSINOPHILS % (AUTO) 7.4 % (1.0-6.0); HEMATOCRIT 29.6 % (41-53); HEMOGLOBIN 9.7 g/dL (13.5-17.5); LYMPHOCYTES # (AUTO) 1.9 K/uL (1.0-4.8); LYMPHOCYTES % (AUTO) 9.6 % (22.0-44.0); MEAN CORPUSCULAR HEMOGLOBIN 29.2 pg (26.0-34.0); MEAN CORPUSCULAR HGB CONC 32.6 G/dL (31.0-37.0); MEAN CORPUSCULAR VOLUME 89 fL (80-100); MONOCYTES # (AUTO) 1.4 K/uL (0.1-1.0); NEUTROPHILS # (AUTO) 14.9 K/uL (1.8-7.7); NEUTROPHILS % (AUTO) 75.4 % (40.0-70.0); PLATELET COUNT (AUTO) 273 K/uL (150-450); RED BLOOD CELL COUNT(AUTO) 3.31 MIL/uL (4.50-5.90)
[2019-04-04 07:18] LABS: ALBUMIN 2.1 g/dL (3.4-5.0); BILIRUBIN,TOTAL 0.8 mg/dL (0.1-1.0); C-REACTIVE PROTEIN QUANT 14.12 mg/dL (0.00-0.30); CALCIUM, TOTAL 8.4 mg/dL (8.8-10.5); CREATININE 3.43 mg/dL (0.60-1.30); MAGNESIUM 2.2 mg/dL (1.80-2.40); PHOSPHORUS 3.7 mg/dL (2.5-4.9); POTASSIUM 3.6 mmol/L (3.5-5.1); TOTAL PROTEIN, SERUM 7.6 g/dL (6.4-8.2)
[2019-04-04 07:20] VITALS: BP 159/79
[2019-04-04] MEDS: METOPROLOL SUCCINATE 25 MG ER TABLET PO SCH (08:08)
[2019-04-04] MEDS: AMIODARONE HCL 200 MG TABLET PO SCH (08:08)
[2019-04-04] MEDS: AmLODIPine BESYLATE 10 MG TABLET PO SCH (08:08)
[2019-04-04] MEDS: LACTOBACILLUS ACIDOPHILUS/BULGARICUS TABLET PO SCH (08:08)
[2019-04-04] MEDS: HydrALAZINE HCL 25 MG TABLET PO SCH (08:09)
[2019-04-04] MEDS: ASPIRIN 81 MG CHEWABLE TABLET PO SCH (08:09)
[2019-04-04] MEDS: DOCUSATE SODIUM 100 MG CAPSULE PO SCH (08:09)
[2019-04-04] MEDS: ATORVASTATIN CALCIUM 40 MG TABLET PO SCH (08:09)
[2019-04-04] MEDS: MORPHINE SULFATE 2 MG/ML SYRINGE IVP PRN ×2 (10:06→14:20)
[2019-04-04] MEDS ORDERED: AUD NEB ×2 (11:38→11:49)
[2019-04-04] MEDS ORDERED: AMIO200T44 PO (11:38)
[2019-04-04] MEDS ORDERED: [UNRECOGNIZED DRUG - CODE] IV (11:42)
[2019-04-04] MEDS ORDERED: DOCU-275 PO (11:42)
[2019-04-04] MEDS ORDERED: HYPR15DR23 OU (11:43)
[2019-04-04] MEDS ORDERED: IPRNEB IH ×2 (11:45→11:54)
[2019-04-04] MEDS ORDERED: LACT1CAP62 PO (11:47)
[2019-04-04] MEDS ORDERED: ACET-2247 PO (11:48)
[2019-04-04] MEDS ORDERED: BISA10SU11 PR (11:50)
[2019-04-04] MEDS ORDERED: CLON0.1T2 PO (11:50)
[2019-04-04] MEDS ORDERED: DIPH25 PO (11:51)
[2019-04-04] MEDS ORDERED: HYDR-4061 PO (11:52)
[2019-04-04] MEDS ORDERED: HYDR20I IVP (11:53)
[2019-04-04] MEDS ORDERED: MORP2CAR IVP (11:54)
[2019-04-04] MEDS ORDERED: ONDA-104 PO (11:57)
[2019-04-04] MEDS ORDERED: ZOLP5 PO (11:57)
[2019-04-04 12:23] VITALS: BP 146/101
[2019-04-04] MEDS ORDERED: AMLO10TA7 PO (17:23)
[2019-04-04] MEDS ORDERED: LEVO100 PO (17:23)
== END 2019-04-04 15:30 | DRG 870 ==
LOC: EMS 09:45 → 5N 18:35 → ICU 03-25 07:15 → 5S 04-02 11:47
PROVIDERS: ADMIT Internal Medicine; ATTEND Internal Medicine
PROC: 5A09357 Assistance with Respiratory Ventilation, Less than 24 Consecutive Hours, Continuous Positive Airway Pressure (ICD-10-PCS; 2019-03-16)
PROC: 5A09357 Assistance with Respiratory Ventilation, Less than 24 Consecutive Hours, Continuous Positive Airway Pressure (ICD-10-PCS; 2019-03-18)
PROC: 5A09357 Assistance with Respiratory Ventilation, Less than 24 Consecutive Hours, Continuous Positive Airway Pressure (ICD-10-PCS; 2019-03-19)
PROC: 0S9C3ZX Drainage of Right Knee Joint, Percutaneous Approach, Diagnostic (ICD-10-PCS; 2019-03-21)
PROC: 5A09357 Assistance with Respiratory Ventilation, Less than 24 Consecutive Hours, Continuous Positive Airway Pressure (ICD-10-PCS; 2019-03-21)
PROC: 5A09357 Assistance with Respiratory Ventilation, Less than 24 Consecutive Hours, Continuous Positive Airway Pressure (ICD-10-PCS; 2019-03-22)
PROC: 5A1955Z Respiratory Ventilation, Greater than 96 Consecutive Hours (ICD-10-PCS; principal; 2019-03-25)
PROC: 0BH17EZ Insertion of Endotracheal Airway into Trachea, Via Natural or Artificial Opening (ICD-10-PCS; 2019-03-25)
PROC: 30233L1 Transfusion of Nonautologous Fresh Plasma into Peripheral Vein, Percutaneous Approach (ICD-10-PCS; 2019-03-25)
PROC: 30233L1 Transfusion of Nonautologous Fresh Plasma into Peripheral Vein, Percutaneous Approach (ICD-10-PCS; 2019-03-25)
PROC: 30233N1 Transfusion of Nonautologous Red Blood Cells into Peripheral Vein, Percutaneous Approach (ICD-10-PCS; 2019-03-25)
PROC: 05HM33Z Insertion of Infusion Device into Right Internal Jugular Vein, Percutaneous Approach (ICD-10-PCS; 2019-03-25)
PROC: 30233N1 Transfusion of Nonautologous Red Blood Cells into Peripheral Vein, Percutaneous Approach (ICD-10-PCS; 2019-03-27)
PROC: 30233K1 Transfusion of Nonautologous Frozen Plasma into Peripheral Vein, Percutaneous Approach (ICD-10-PCS; 2019-03-27)
PROC: 30233K1 Transfusion of Nonautologous Frozen Plasma into Peripheral Vein, Percutaneous Approach (ICD-10-PCS; 2019-03-27)
PROC: 5A09357 Assistance with Respiratory Ventilation, Less than 24 Consecutive Hours, Continuous Positive Airway Pressure (ICD-10-PCS; 2019-04-03)
PROC: 5A09357 Assistance with Respiratory Ventilation, Less than 24 Consecutive Hours, Continuous Positive Airway Pressure (ICD-10-PCS; 2019-04-04)
DX: A40.9 Streptococcal sepsis, unspecified (principal); G93.41 Metabolic encephalopathy; K66.1 Hemoperitoneum; J96.01 Acute respiratory failure with hypoxia; R57.8 Other shock; L03.116 Cellulitis of left lower limb; I50.22 Chronic systolic (congestive) heart failure; I48.20 Chronic atrial fibrillation, unspecified; D62 Acute posthemorrhagic anemia; D68.9 Coagulation defect, unspecified; E87.0 Hyperosmolality and hypernatremia; I13.0 Hypertensive heart and chronic kidney disease with heart failure and stage 1 through stage 4 chronic kidney disease, or unspecified chronic kidney disease; I42.8 Other cardiomyopathies; N17.9 Acute kidney failure, unspecified; E78.5 Hyperlipidemia, unspecified; E03.9 Hypothyroidism, unspecified; B95.0 Streptococcus, group A, as the cause of diseases classified elsewhere; D73.5 Infarction of spleen; E78.00 Pure hypercholesterolemia, unspecified; J38.4 Edema of larynx; M19.90 Unspecified osteoarthritis, unspecified site; N18.9 Chronic kidney disease, unspecified; R65.20 Severe sepsis without septic shock; Z96.641 Presence of right artificial hip joint; T38.0X5A Adverse effect of glucocorticoids and synthetic analogues, initial encounter; Z79.01 Long term (current) use of anticoagulants; Z79.82 Long term (current) use of aspirin; Z79.899 Other long term (current) drug therapy; Z88.8 Allergy status to other drugs, medicaments and biological substances; Z88.0 Allergy status to penicillin
CPT/HCPCS: 36600; 70450; 70491; 71250; 72125; 72141; 72156; 73700; 73720; 73723; 74018; 74176; 76700; 82436; 82805; 83605; 83735; 83935; 84100; 84145; 84295; 84300; 84443; 84550; 85014; 85018; 85362; 85379; 85384; 86140; 86850; 86900; 86901; 86920; 86927; 87040; 87070; 87081; 87086; 87205; 87324; 87449; 89050; 89051; 89060; 92526; 92610; 93005; 93306; 93308; 93925; 93970; 93971; 94002; 94003; 94640; 94660; 96365; 96375; 97112; 97162; 97166; 97530; 97535; 99291; 99292; A9585; G0378; G0480; J0282; J0360; J0610; J0696; J0878; J1160; J1885; J1940; J2250; J2270; J2370; J2405; J2540; J2543; J2704; J2930; J3370; J3430; J3475; J3490; J7030; J7040; J7050; J7060; J7120; P9016; P9017

== ENCOUNTER 2019-04-04 15:33 | Inpatient (IN) | payer OTHER ==
[~2019-04-04] VITALS: Ht 175.3 cm; Wt 96.6 kg
[~2019-04-04 15:33] MED LIST changes: +ACET-2247 PO; +AMIO200T44 PO; +AMLO2.5T4 PO; -ATEN25TA PO; -ATOR20TA86 PO; +ATOR40TA28 PO; +AUD NEB; +BISA10SU11 PR; +CLON0.1T2 PO; +DIPH25 PO; +DOCU-275 PO; -FURO20 PO; +FURO40TA5 PO; +HYDR-4061 PO; +HYDR-4174 PO; +HYDR20I IVP; +HYPR15DR23 OU; +IPRNEB IH; +LACT1CAP62 PO; +LEVO50 PO; +LOSA50TA64 PO; +METO-391 PO; +MORP2CAR IVP; +ONDA-104 PO; -PERCT PO; +WARF5 PO; +ZOLP5 PO; +[UNRECOGNIZED DRUG - CODE] IV
[2019-04-04 16:00] VITALS: BP 151/95
[2019-04-04] MEDS ORDERED: ACETAMINOPHEN 325 MG TABLET PO PRN (17:15)
[2019-04-04] MEDS ORDERED: MELATONIN 5 MG TABLET PO PRN (17:15)
[2019-04-04] MEDS ORDERED: AMLO10TA7 PO (17:23)
[2019-04-04] MEDS ORDERED: LEVO100 PO (17:23)
[2019-04-04] MEDS ORDERED: BISACODYL 10 MG RECTAL RECTAL SUPPOSITORY PR PRN (18:00)
[2019-04-04] MEDS ORDERED: CloNIDine HCL 0.1 MG TABLET PO PRN (18:00)
[2019-04-04] MEDS ORDERED: DiphenhydrAMINE HCL 25 MG CAPSULE PO PRN (18:00)
[2019-04-04] MEDS ORDERED: ALBUTEROL SULFATE 2.5 MG/0.5 ML NEB SOLUTION NEB PRN (18:00)
[2019-04-04] MEDS ORDERED: ONDANSETRON HCL 4 MG TABLET PO PRN (18:15)
[2019-04-04] MEDS ORDERED: PNEUMOCOCCAL VACCINE POLYVALENT 0.5 ML VIAL [PPSV23] IM ONE (18:15)
[2019-04-04] MEDS ORDERED: IPRATROPIUM BROMIDE 0.5 MG/2.5 ML NEB SOLUTION NEB PRN (18:15)
[2019-04-04] MEDS: DOCUSATE SODIUM 100 MG CAPSULE PO SCH (20:34)
[2019-04-04] MEDS: AMIODARONE HCL 200 MG TABLET PO SCH (20:34)
[2019-04-04] MEDS: SENNA 187 MG TABLET PO SCH (20:34)
[2019-04-04] MEDS: ATORVASTATIN CALCIUM 40 MG TABLET PO SCH (20:34)
[2019-04-04] MEDS: DEXTROSE 5%-WATER 1,000 ML IV SCH (20:35)
[2019-04-04] MEDS: COLD CREAM, SKIN EMOLLIENT 170 GM JAR TP SCH (20:35)
[2019-04-04] MEDS ORDERED: HydrALAZINE HCL 50 MG TABLET PO SCH (21:00)
[2019-04-04] MEDS: ALBUTEROL SULFATE 2.5 MG/0.5 ML NEB SOLUTION NEB SCH (21:02)
[2019-04-04] MEDS: IPRATROPIUM BROMIDE 0.5 MG/2.5 ML NEB SOLUTION NEB SCH (21:03)
[2019-04-04] MEDS: LACTOBAC ACID/BULG/BIFID/THERM TABLET PO SCH (21:52)
[2019-04-05] MEDS: 0.9% SODIUM CHLORIDE 10 ML SYRINGE IVP SCH ×3 (00:41→16:29)
[2019-04-05 01:18] VITALS: BP 148/97
[2019-04-05] MEDS: HYDROCODONE/ACETAMINOPHEN 5-325 MG TABLET PO PRN ×2 (01:18→12:15)
[2019-04-05] MEDS: ALBUTEROL SULFATE 2.5 MG/0.5 ML NEB SOLUTION NEB SCH ×4 (02:00→20:16)
[2019-04-05] MEDS: IPRATROPIUM BROMIDE 0.5 MG/2.5 ML NEB SOLUTION NEB SCH ×4 (02:00→20:16)
[2019-04-05] MEDS: HYPROMELLOSE 0.5% 15 ML OPHTHALMIC SOLUTION OU SCH ×2 (05:45→12:14)
[2019-04-05] MEDS: LEVOTHYROXINE SODIUM 100 MCG TABLET PO SCH (05:45)
[2019-04-05 07:21] VITALS: BP 138/72
[2019-04-05 08:04] LABS: BASOPHILS % (AUTO) 0.4 % (0.0-2.0); EOSINOPHILS % (AUTO) 7.3 % (1.0-6.0); LYMPHOCYTES # (AUTO) 1.3 K/uL (1.0-4.8); LYMPHOCYTES % (AUTO) 7.6 % (22.0-44.0); MEAN CORPUSCULAR HEMOGLOBIN 29.7 pg (26.0-34.0); MEAN CORPUSCULAR HGB CONC 33.2 G/dL (31.0-37.0); MEAN CORPUSCULAR VOLUME 90 fL (80-100); MONOCYTES # (AUTO) 1.1 K/uL (0.1-1.0); MONOCYTES % (AUTO) 6.3 % (2.0-9.0); NEUTROPHILS # (AUTO) 13.6 K/uL (1.8-7.7); NEUTROPHILS % (AUTO) 78.4 % (40.0-70.0); PLATELET COUNT (AUTO) 259 K/uL (150-450); RED BLOOD CELL COUNT(AUTO) 3.02 MIL/uL (4.50-5.90); RED CELL DISTRIBUTION WIDTH 15.2 % (11.5-14.5)
[2019-04-05 08:14] LABS: ALBUMIN 1.8 g/dL (3.4-5.0); BILIRUBIN,TOTAL 0.9 mg/dL (0.1-1.0); CALCIUM, TOTAL 8.1 mg/dL (8.8-10.5); CREATININE 2.94 mg/dL (0.60-1.30); POTASSIUM 3.5 mmol/L (3.5-5.1); TOTAL PROTEIN, SERUM 6.7 g/dL (6.4-8.2)
[2019-04-05] MEDS: DOCUSATE SODIUM 100 MG CAPSULE PO SCH ×2 (08:20→21:08)
[2019-04-05] MEDS: HydrALAZINE HCL 25 MG TABLET PO SCH ×3 (08:20→21:07)
[2019-04-05] MEDS: METOPROLOL SUCCINATE 50 MG ER TABLET PO SCH (08:21)
[2019-04-05] MEDS: AMIODARONE HCL 200 MG TABLET PO SCH ×2 (08:21→21:07)
[2019-04-05] MEDS: AmLODIPine BESYLATE 10 MG TABLET PO SCH (08:21)
[2019-04-05] MEDS: LACTOBAC ACID/BULG/BIFID/THERM TABLET PO SCH ×2 (08:21→21:07)
[2019-04-05] MEDS: ASPIRIN 81 MG EC TABLET PO SCH (08:21)
[2019-04-05] MEDS: COLD CREAM, SKIN EMOLLIENT 170 GM JAR TP SCH ×2 (08:31→21:07)
[2019-04-05] MEDS: ZINC SULFATE 220 MG CAPSULE PO SCH (13:27)
[2019-04-05] MEDS: ALLOPURINOL 100 MG TABLET PO SCH (13:27)
[2019-04-05] MEDS: ASCORBIC ACID 500 MG TABLET PO SCH ×2 (13:27→21:08)
[2019-04-05] MEDS: MULTIVITAMINS WITH MINERALS, THERAPEUTIC TABLET PO SCH (13:27)
[2019-04-05] MEDS: DICLOFENAC SODIUM 1% 100 GM GEL [2GM] TP PRN ×2 (13:42→18:56)
[2019-04-05] MEDS: DEXTROSE 5%-WATER 1,000 ML IV SCH (14:44)
[2019-04-05 16:12] VITALS: BP 153/88
[2019-04-05 21:00] VITALS: BP 126/73
[2019-04-05] MEDS: CHLORHEXIDINE GLUCONATE 4% 118 ML TOPICAL LIQUID TP SCH (21:07)
[2019-04-05] MEDS: ATORVASTATIN CALCIUM 40 MG TABLET PO SCH (21:08)
[2019-04-05] MEDS: SENNA 187 MG TABLET PO SCH (21:08)
[2019-04-06] VITALS: BP 159/83
[2019-04-06] MEDS: 0.9% SODIUM CHLORIDE 10 ML SYRINGE IVP SCH ×4 (00:02→23:11)
[2019-04-06] MEDS: DICLOFENAC SODIUM 1% 100 GM GEL [2GM] TP PRN ×2 (00:07→08:38)
[2019-04-06] MEDS: ALBUTEROL SULFATE 2.5 MG/0.5 ML NEB SOLUTION NEB SCH ×4 (01:49→19:43)
[2019-04-06] MEDS: IPRATROPIUM BROMIDE 0.5 MG/2.5 ML NEB SOLUTION NEB SCH ×4 (01:50→19:43)
[2019-04-06] MEDS: LEVOTHYROXINE SODIUM 100 MCG TABLET PO SCH (05:29)
[2019-04-06 07:23] LABS: CREATININE 2.52 mg/dL (0.60-1.30); MAGNESIUM 1.7 mg/dL (1.80-2.40); PHOSPHORUS 3.4 mg/dL (2.5-4.9); POTASSIUM 3.3 mmol/L (3.5-5.1)
[2019-04-06 07:37] VITALS: BP 134/80
[2019-04-06 08:19] LABS: % IRON SATURATION 19.2 % (30-44)
[2019-04-06] MEDS: DOCUSATE SODIUM 100 MG CAPSULE PO SCH ×3 (08:38→20:07)
[2019-04-06] MEDS: ASPIRIN 81 MG EC TABLET PO SCH (08:38)
[2019-04-06] MEDS: AmLODIPine BESYLATE 10 MG TABLET PO SCH (08:38)
[2019-04-06] MEDS: ASCORBIC ACID 500 MG TABLET PO SCH ×2 (08:38→20:04)
[2019-04-06] MEDS: ALLOPURINOL 100 MG TABLET PO SCH (08:39)
[2019-04-06] MEDS: COLD CREAM, SKIN EMOLLIENT 170 GM JAR TP SCH ×2 (08:39→20:05)
[2019-04-06] MEDS: MULTIVITAMINS WITH MINERALS, THERAPEUTIC TABLET PO SCH (08:40)
[2019-04-06] MEDS: ZINC SULFATE 220 MG CAPSULE PO SCH (09:43)
[2019-04-06] MEDS: METOPROLOL SUCCINATE 50 MG ER TABLET PO SCH (09:43)
[2019-04-06] MEDS: HydrALAZINE HCL 25 MG TABLET PO SCH ×3 (09:44→20:03)
[2019-04-06] MEDS: LACTOBAC ACID/BULG/BIFID/THERM TABLET PO SCH ×2 (09:44→20:04)
[2019-04-06 09:45] VITALS: BP 136/76
[2019-04-06] MEDS: AMIODARONE HCL 200 MG TABLET PO SCH ×2 (09:45→20:04)
[2019-04-06] MEDS ORDERED: POTASSIUM CHLORIDE 20 MEQ ER TABLET PO ONE (10:15)
[2019-04-06] MEDS ORDERED: MAGNESIUM SULFATE 1 GM in DEXTROSE 5%-WATER 50 ML IV ONE (11:30)
[2019-04-06] MEDS: HYDROCODONE/ACETAMINOPHEN 5-325 MG TABLET PO PRN (11:53)
[2019-04-06] MEDS: DEXTROSE 5%-WATER 1,000 ML IV SCH (12:17)
[2019-04-06] MEDS: HYDROCODONE/ACETAMINOPHEN 10-325 MG TABLET PO PRN ×2 (13:17→23:11)
[2019-04-06 17:05] VITALS: BP 135/77
[2019-04-06] MEDS: DOCUSATE SODIUM 283 MG/5 ML MINI-ENEMA PR SCH (17:30)
[2019-04-06] MEDS: SENNA 187 MG TABLET PO SCH ×2 (20:04→20:08)
[2019-04-06] MEDS: CHLORHEXIDINE GLUCONATE 4% 118 ML TOPICAL LIQUID TP SCH (20:05)
[2019-04-06 23:11] VITALS: BP 146/85
[2019-04-07] MEDS: ALBUTEROL SULFATE 2.5 MG/0.5 ML NEB SOLUTION NEB SCH ×4 (02:19→20:02)
[2019-04-07] MEDS: IPRATROPIUM BROMIDE 0.5 MG/2.5 ML NEB SOLUTION NEB SCH ×4 (02:19→20:02)
[2019-04-07] MEDS: LEVOTHYROXINE SODIUM 100 MCG TABLET PO SCH (06:05)
[2019-04-07 07:39] VITALS: BP 138/73
[2019-04-07 07:46] LABS: BASOPHILS % (AUTO) 0.8 % (0.0-2.0); EOSINOPHILS % (AUTO) 7.5 % (1.0-6.0); HEMATOCRIT 27.8 % (41-53); HEMOGLOBIN 9.1 g/dL (13.5-17.5); LYMPHOCYTES # (AUTO) 1.1 K/uL (1.0-4.8); LYMPHOCYTES % (AUTO) 7.6 % (22.0-44.0); MEAN CORPUSCULAR HEMOGLOBIN 29.7 pg (26.0-34.0); MEAN CORPUSCULAR HGB CONC 32.8 G/dL (31.0-37.0); MEAN CORPUSCULAR VOLUME 90 fL (80-100); MONOCYTES # (AUTO) 0.8 K/uL (0.1-1.0); MONOCYTES % (AUTO) 5.3 % (2.0-9.0); NEUTROPHILS # (AUTO) 11.9 K/uL (1.8-7.7); NEUTROPHILS % (AUTO) 78.8 % (40.0-70.0); PLATELET COUNT (AUTO) 200 K/uL (150-450); RED BLOOD CELL COUNT(AUTO) 3.08 MIL/uL (4.50-5.90); RED CELL DISTRIBUTION WIDTH 15.3 % (11.5-14.5)
[2019-04-07 08:16] LABS: ALBUMIN 1.9 g/dL (3.4-5.0); BILIRUBIN,TOTAL 0.9 mg/dL (0.1-1.0); C-REACTIVE PROTEIN QUANT 16.53 mg/dL (0.00-0.30); CREATININE 2.18 mg/dL (0.60-1.30); MAGNESIUM 1.7 mg/dL (1.80-2.40); PHOSPHORUS 3.4 mg/dL (2.5-4.9); POTASSIUM 3.6 mmol/L (3.5-5.1)
[2019-04-07] MEDS: DICLOFENAC SODIUM 1% 100 GM GEL [2GM] TP PRN (08:38)
[2019-04-07] MEDS: METOPROLOL SUCCINATE 50 MG ER TABLET PO SCH (08:38)
[2019-04-07] MEDS: EPOETIN ALFA 10,000 UNITS/ML VIAL SQ SCH (08:38)
[2019-04-07] MEDS: ALLOPURINOL 100 MG TABLET PO SCH (08:39)
[2019-04-07] MEDS: ASCORBIC ACID 500 MG TABLET PO SCH ×2 (08:39→22:01)
[2019-04-07] MEDS: PredniSONE 20 MG TABLET PO SCH (08:39)
[2019-04-07] MEDS: AMIODARONE HCL 200 MG TABLET PO SCH ×2 (08:39→22:01)
[2019-04-07] MEDS: HydrALAZINE HCL 25 MG TABLET PO SCH ×3 (08:39→22:01)
[2019-04-07] MEDS: MULTIVITAMINS WITH MINERALS, THERAPEUTIC TABLET PO SCH (08:39)
[2019-04-07] MEDS: LACTOBAC ACID/BULG/BIFID/THERM TABLET PO SCH ×2 (08:39→22:01)
[2019-04-07] MEDS: ZINC SULFATE 220 MG CAPSULE PO SCH (08:39)
[2019-04-07] MEDS: ASPIRIN 81 MG EC TABLET PO SCH (08:39)
[2019-04-07] MEDS: AmLODIPine BESYLATE 10 MG TABLET PO SCH (08:39)
[2019-04-07] MEDS: 0.9% SODIUM CHLORIDE 10 ML SYRINGE IVP SCH ×3 (08:40→23:09)
[2019-04-07] MEDS: DOCUSATE SODIUM 100 MG CAPSULE PO SCH ×2 (08:40→22:01)
[2019-04-07] MEDS: COLD CREAM, SKIN EMOLLIENT 170 GM JAR TP SCH ×2 (08:42→22:05)
[2019-04-07] MEDS: MAGNESIUM OXIDE 400 MG TABLET PO SCH (12:53)
[2019-04-07] MEDS: HYDROCODONE/ACETAMINOPHEN 10-325 MG TABLET PO PRN (12:53)
[2019-04-07 15:41] VITALS: BP 125/71
[2019-04-07] MEDS: DOCUSATE SODIUM 283 MG/5 ML MINI-ENEMA PR SCH (18:10)
[2019-04-07] MEDS: SENNA 187 MG TABLET PO SCH (22:01)
[2019-04-07] MEDS: CHLORHEXIDINE GLUCONATE 4% 118 ML TOPICAL LIQUID TP SCH (22:05)
[2019-04-08] VITALS: BP 139/76
[2019-04-08] MEDS: ALBUTEROL SULFATE 2.5 MG/0.5 ML NEB SOLUTION NEB SCH ×4 (02:06→20:28)
[2019-04-08] MEDS: IPRATROPIUM BROMIDE 0.5 MG/2.5 ML NEB SOLUTION NEB SCH ×4 (02:06→20:28)
[2019-04-08] MEDS: LEVOTHYROXINE SODIUM 100 MCG TABLET PO SCH (06:15)
[2019-04-08 06:49] LABS: MAGNESIUM 1.6 mg/dL (1.80-2.40)
[2019-04-08 07:24] VITALS: BP 110/64
[2019-04-08] MEDS: HYDROCODONE/ACETAMINOPHEN 10-325 MG TABLET PO PRN ×2 (07:24→17:02)
[2019-04-08] MEDS: AMIODARONE HCL 200 MG TABLET PO SCH ×2 (08:16→21:58)
[2019-04-08] MEDS: 0.9% SODIUM CHLORIDE 10 ML SYRINGE IVP SCH ×2 (08:16→17:00)
[2019-04-08] MEDS: MAGNESIUM OXIDE 400 MG TABLET PO SCH (08:19)
[2019-04-08] MEDS: METOPROLOL SUCCINATE 50 MG ER TABLET PO SCH (08:19)
[2019-04-08] MEDS: AmLODIPine BESYLATE 10 MG TABLET PO SCH (08:19)
[2019-04-08] MEDS: ALLOPURINOL 100 MG TABLET PO SCH (08:20)
[2019-04-08] MEDS: ZINC SULFATE 220 MG CAPSULE PO SCH (08:20)
[2019-04-08] MEDS: ASCORBIC ACID 500 MG TABLET PO SCH ×2 (08:20→21:59)
[2019-04-08] MEDS: ASPIRIN 81 MG EC TABLET PO SCH (08:20)
[2019-04-08] MEDS: MULTIVITAMINS WITH MINERALS, THERAPEUTIC TABLET PO SCH (08:20)
[2019-04-08] MEDS: DOCUSATE SODIUM 100 MG CAPSULE PO SCH ×2 (08:21→21:58)
[2019-04-08] MEDS: LACTOBAC ACID/BULG/BIFID/THERM TABLET PO SCH ×2 (08:21→21:58)
[2019-04-08] MEDS: PredniSONE 20 MG TABLET PO SCH (08:21)
[2019-04-08] MEDS: HydrALAZINE HCL 25 MG TABLET PO SCH ×3 (08:21→21:58)
[2019-04-08] MEDS: COLD CREAM, SKIN EMOLLIENT 170 GM JAR TP SCH ×2 (08:26→21:59)
[2019-04-08] MEDS: DICLOFENAC SODIUM 1% 100 GM GEL [2GM] TP PRN (08:27)
[2019-04-08 09:22] LABS: CALCIUM, TOTAL 7.8 mg/dL (8.8-10.5); CREATININE 1.91 mg/dL (0.60-1.30); POTASSIUM 3.7 mmol/L (3.5-5.1)
[2019-04-08 16:30] VITALS: BP 122/68
[2019-04-08] MEDS: DOCUSATE SODIUM 283 MG/5 ML MINI-ENEMA PR SCH (17:00)
[2019-04-08] MEDS: SENNA 187 MG TABLET PO SCH (21:59)
[2019-04-08] MEDS: CHLORHEXIDINE GLUCONATE 4% 118 ML TOPICAL LIQUID TP SCH (21:59)
[2019-04-09] MEDS: 0.9% SODIUM CHLORIDE 10 ML SYRINGE IVP SCH ×4 (00:23→22:42)
[2019-04-09 00:48] VITALS: BP 124/70
[2019-04-09] MEDS: IPRATROPIUM BROMIDE 0.5 MG/2.5 ML NEB SOLUTION NEB SCH ×4 (02:00→20:07)
[2019-04-09] MEDS: ALBUTEROL SULFATE 2.5 MG/0.5 ML NEB SOLUTION NEB SCH ×4 (02:00→20:07)
[2019-04-09] MEDS: LEVOTHYROXINE SODIUM 100 MCG TABLET PO SCH (05:49)
[2019-04-09 07:01] LABS: CALCIUM, TOTAL 7.9 mg/dL (8.8-10.5); CREATININE 2.03 mg/dL (0.60-1.30); POTASSIUM 3.3 mmol/L (3.5-5.1)
[2019-04-09 08:10] VITALS: BP 135/72
[2019-04-09] MEDS: HYDROCODONE/ACETAMINOPHEN 10-325 MG TABLET PO PRN ×2 (08:10→22:11)
[2019-04-09] MEDS: LACTOBAC ACID/BULG/BIFID/THERM TABLET PO SCH ×2 (08:11→22:11)
[2019-04-09] MEDS: HydrALAZINE HCL 25 MG TABLET PO SCH ×3 (08:11→22:11)
[2019-04-09] MEDS: MULTIVITAMINS WITH MINERALS, THERAPEUTIC TABLET PO SCH (08:12)
[2019-04-09] MEDS: PredniSONE 20 MG TABLET PO SCH (08:12)
[2019-04-09] MEDS: AMIODARONE HCL 200 MG TABLET PO SCH ×2 (08:12→22:11)
[2019-04-09] MEDS: ASCORBIC ACID 500 MG TABLET PO SCH ×2 (08:12→22:12)
[2019-04-09] MEDS: METOPROLOL SUCCINATE 50 MG ER TABLET PO SCH (08:12)
[2019-04-09] MEDS: ALLOPURINOL 100 MG TABLET PO SCH (08:12)
[2019-04-09] MEDS: MAGNESIUM OXIDE 400 MG TABLET PO SCH (08:13)
[2019-04-09] MEDS: DOCUSATE SODIUM 100 MG CAPSULE PO SCH ×2 (08:13→22:12)
[2019-04-09] MEDS: ASPIRIN 81 MG EC TABLET PO SCH (08:13)
[2019-04-09] MEDS: AmLODIPine BESYLATE 10 MG TABLET PO SCH (08:13)
[2019-04-09] MEDS: ZINC SULFATE 220 MG CAPSULE PO SCH (08:13)
[2019-04-09] MEDS: DICLOFENAC SODIUM 1% 100 GM GEL [2GM] TP PRN ×2 (08:17→22:10)
[2019-04-09] MEDS: COLD CREAM, SKIN EMOLLIENT 170 GM JAR TP SCH ×2 (08:26→22:10)
[2019-04-09] MEDS: EPOETIN ALFA 10,000 UNITS/ML VIAL SQ SCH (08:26)
[2019-04-09] MEDS ORDERED: POTASSIUM CHLORIDE 20 MEQ ER TABLET PO ONE (09:15)
[2019-04-09] MEDS ORDERED: MAGNESIUM OXIDE 400 MG TABLET PO ONE (09:15)
[2019-04-09 15:15] VITALS: BP 153/73
[2019-04-09] MEDS: HYDROCODONE/ACETAMINOPHEN 5-325 MG TABLET PO PRN (16:10)
[2019-04-09] MEDS: DOCUSATE SODIUM 283 MG/5 ML MINI-ENEMA PR SCH ×2 (17:30→18:00)
[2019-04-09 22:00] VITALS: BP 123/83
[2019-04-09] MEDS: SENNA 187 MG TABLET PO SCH (22:12)
[2019-04-09 23:00] VITALS: BP 124/75
[2019-04-10] MEDS: ALBUTEROL SULFATE 2.5 MG/0.5 ML NEB SOLUTION NEB SCH ×4 (02:00→22:10)
[2019-04-10] MEDS: IPRATROPIUM BROMIDE 0.5 MG/2.5 ML NEB SOLUTION NEB SCH ×4 (02:00→22:11)
[2019-04-10] MEDS: LEVOTHYROXINE SODIUM 100 MCG TABLET PO SCH (06:17)
[2019-04-10 07:34] LABS: CALCIUM, TOTAL 7.6 mg/dL (8.8-10.5); CREATININE 1.68 mg/dL (0.60-1.30); MAGNESIUM 1.7 mg/dL (1.80-2.40); POTASSIUM 4.2 mmol/L (3.5-5.1)
[2019-04-10 08:06] VITALS: BP 117/64
[2019-04-10] MEDS: DICLOFENAC SODIUM 1% 100 GM GEL [2GM] TP PRN (08:06)
[2019-04-10] MEDS: ASPIRIN 81 MG EC TABLET PO SCH (08:06)
[2019-04-10] MEDS: HYDROCODONE/ACETAMINOPHEN 10-325 MG TABLET PO PRN ×2 (08:06→13:56)
[2019-04-10] MEDS: METOPROLOL SUCCINATE 50 MG ER TABLET PO SCH (08:07)
[2019-04-10] MEDS: MULTIVITAMINS WITH MINERALS, THERAPEUTIC TABLET PO SCH (08:07)
[2019-04-10] MEDS: AmLODIPine BESYLATE 10 MG TABLET PO SCH (08:07)
[2019-04-10] MEDS: DOCUSATE SODIUM 100 MG CAPSULE PO SCH ×2 (08:08→20:56)
[2019-04-10] MEDS: ASCORBIC ACID 500 MG TABLET PO SCH ×2 (08:08→20:56)
[2019-04-10] MEDS: AMIODARONE HCL 200 MG TABLET PO SCH ×2 (08:08→20:54)
[2019-04-10] MEDS: HydrALAZINE HCL 25 MG TABLET PO SCH ×3 (08:08→20:55)
[2019-04-10] MEDS: PredniSONE 20 MG TABLET PO SCH (08:08)
[2019-04-10] MEDS: MAGNESIUM OXIDE 400 MG TABLET PO SCH (08:08)
[2019-04-10] MEDS: LACTOBAC ACID/BULG/BIFID/THERM TABLET PO SCH ×2 (08:08→20:55)
[2019-04-10] MEDS: ZINC SULFATE 220 MG CAPSULE PO SCH (08:09)
[2019-04-10] MEDS: 0.9% SODIUM CHLORIDE 10 ML SYRINGE IVP SCH ×3 (08:09→23:39)
[2019-04-10] MEDS: COLD CREAM, SKIN EMOLLIENT 170 GM JAR TP SCH ×2 (08:15→20:56)
[2019-04-10] MEDS: ALLOPURINOL 100 MG TABLET PO SCH (08:18)
[2019-04-10 15:39] VITALS: BP 123/76
[2019-04-10] MEDS: DOCUSATE SODIUM 283 MG/5 ML MINI-ENEMA PR SCH ×2 (17:30→20:54)
[2019-04-10] MEDS: SENNA 187 MG TABLET PO SCH (20:55)
[2019-04-10 21:00] VITALS: BP 143/65
[2019-04-11 01:07] VITALS: BP 142/63
[2019-04-11] MEDS: ALBUTEROL SULFATE 2.5 MG/0.5 ML NEB SOLUTION NEB SCH ×4 (02:00→20:57)
[2019-04-11] MEDS: IPRATROPIUM BROMIDE 0.5 MG/2.5 ML NEB SOLUTION NEB SCH ×4 (02:00→20:57)
[2019-04-11] MEDS: LEVOTHYROXINE SODIUM 100 MCG TABLET PO SCH (06:14)
[2019-04-11] MEDS: 0.9% SODIUM CHLORIDE 10 ML SYRINGE IVP SCH ×2 (08:00→16:49)
[2019-04-11 08:37] VITALS: BP 138/83
[2019-04-11] MEDS: HYDROCODONE/ACETAMINOPHEN 10-325 MG TABLET PO PRN ×2 (08:37→17:10)
[2019-04-11] MEDS: LACTOBAC ACID/BULG/BIFID/THERM TABLET PO SCH ×2 (08:37→21:16)
[2019-04-11] MEDS: PredniSONE 20 MG TABLET PO SCH (08:39)
[2019-04-11] MEDS: HydrALAZINE HCL 25 MG TABLET PO SCH ×3 (08:39→21:16)
[2019-04-11] MEDS: METOPROLOL SUCCINATE 50 MG ER TABLET PO SCH (08:39)
[2019-04-11] MEDS: MULTIVITAMINS WITH MINERALS, THERAPEUTIC TABLET PO SCH (08:39)
[2019-04-11] MEDS: DOCUSATE SODIUM 100 MG CAPSULE PO SCH ×2 (08:39→21:00)
[2019-04-11] MEDS: AMIODARONE HCL 200 MG TABLET PO SCH ×2 (08:40→21:16)
[2019-04-11] MEDS: ALLOPURINOL 100 MG TABLET PO SCH (08:40)
[2019-04-11] MEDS: ASPIRIN 81 MG EC TABLET PO SCH (08:40)
[2019-04-11] MEDS: EPOETIN ALFA 10,000 UNITS/ML VIAL SQ SCH (08:40)
[2019-04-11] MEDS: ASCORBIC ACID 500 MG TABLET PO SCH ×2 (08:40→21:16)
[2019-04-11] MEDS: AmLODIPine BESYLATE 10 MG TABLET PO SCH (08:40)
[2019-04-11] MEDS: ZINC SULFATE 220 MG CAPSULE PO SCH (08:40)
[2019-04-11] MEDS: COLD CREAM, SKIN EMOLLIENT 170 GM JAR TP SCH ×2 (08:41→21:00)
[2019-04-11 16:27] VITALS: BP 115/72
[2019-04-11] MEDS: SENNA 187 MG TABLET PO SCH (21:00)
[2019-04-11 21:05] VITALS: BP 133/69
[2019-04-12 03:30] VITALS: BP 137/58
[2019-04-12] MEDS: HYDROCODONE/ACETAMINOPHEN 10-325 MG TABLET PO PRN (03:30)
[2019-04-12] MEDS: 0.9% SODIUM CHLORIDE 10 ML SYRINGE IVP SCH ×2 (03:36→16:22)
[2019-04-12] MEDS: ALBUTEROL SULFATE 2.5 MG/0.5 ML NEB SOLUTION NEB SCH ×2 (03:47→08:00)
[2019-04-12] MEDS: IPRATROPIUM BROMIDE 0.5 MG/2.5 ML NEB SOLUTION NEB SCH ×2 (03:47→08:00)
[2019-04-12] MEDS: LEVOTHYROXINE SODIUM 100 MCG TABLET PO SCH (05:30)
[2019-04-12 07:16] LABS: ALBUMIN 2.3 g/dL (3.4-5.0); BILIRUBIN,TOTAL 0.4 mg/dL (0.1-1.0); CALCIUM, TOTAL 7.7 mg/dL (8.8-10.5); CREATININE 1.85 mg/dL (0.60-1.30); POTASSIUM 3.8 mmol/L (3.5-5.1); TOTAL PROTEIN, SERUM 6.8 g/dL (6.4-8.2)
[2019-04-12 08:00] VITALS: BP 106/61
[2019-04-12] MEDS: LACTOBAC ACID/BULG/BIFID/THERM TABLET PO SCH ×2 (11:12→20:21)
[2019-04-12] MEDS: METOPROLOL SUCCINATE 50 MG ER TABLET PO SCH (11:12)
[2019-04-12] MEDS: AMIODARONE HCL 200 MG TABLET PO SCH ×2 (11:14→20:21)
[2019-04-12] MEDS: ASCORBIC ACID 500 MG TABLET PO SCH ×2 (11:14→20:21)
[2019-04-12] MEDS: ASPIRIN 81 MG EC TABLET PO SCH (11:14)
[2019-04-12] MEDS: DOCUSATE SODIUM 100 MG CAPSULE PO SCH ×2 (11:15→20:21)
[2019-04-12] MEDS: MULTIVITAMINS WITH MINERALS, THERAPEUTIC TABLET PO SCH (11:15)
[2019-04-12] MEDS: ALLOPURINOL 100 MG TABLET PO SCH (11:15)
[2019-04-12] MEDS: HydrALAZINE HCL 25 MG TABLET PO SCH ×3 (11:15→20:21)
[2019-04-12] MEDS ORDERED: ALBUTEROL SULFATE 2.5 MG/0.5 ML NEB SOLUTION NEB PRN (11:15)
[2019-04-12] MEDS ORDERED: IPRATROPIUM BROMIDE 0.5 MG/2.5 ML NEB SOLUTION NEB PRN (11:15)
[2019-04-12] MEDS: PredniSONE 20 MG TABLET PO SCH (11:16)
[2019-04-12] MEDS: ZINC SULFATE 220 MG CAPSULE PO SCH (11:16)
[2019-04-12] MEDS: AmLODIPine BESYLATE 10 MG TABLET PO SCH (11:16)
[2019-04-12] MEDS: COLD CREAM, SKIN EMOLLIENT 170 GM JAR TP SCH ×2 (11:17→20:22)
[2019-04-12 15:58] VITALS: BP 123/69
[2019-04-12] MEDS ORDERED: POLYETHYLENE GLYCOL 3350 17 GM PACKET PO SCH (16:00)
[2019-04-12] MEDS: POLYETHYLENE GLYCOL 3350 17 GM PACKET PO SCH ×2 (16:20→20:21)
[2019-04-12] MEDS: DOCUSATE SODIUM 283 MG/5 ML MINI-ENEMA PR SCH ×2 (17:30→19:38)
[2019-04-12 19:49] VITALS: BP 121/82
[2019-04-12] MEDS: HYDROCODONE/ACETAMINOPHEN 5-325 MG TABLET PO PRN (19:49)
[2019-04-12] MEDS: DICLOFENAC SODIUM 1% 100 GM GEL [2GM] TP PRN (20:54)
[2019-04-13 00:03] VITALS: BP 126/72
[2019-04-13] MEDS: HYDROCODONE/ACETAMINOPHEN 10-325 MG TABLET PO PRN ×2 (00:03→16:26)
[2019-04-13] MEDS: 0.9% SODIUM CHLORIDE 10 ML SYRINGE IVP SCH ×3 (00:04→16:49)
[2019-04-13] MEDS: LEVOTHYROXINE SODIUM 100 MCG TABLET PO SCH (06:13)
[2019-04-13] MEDS: LACTOBAC ACID/BULG/BIFID/THERM TABLET PO SCH ×2 (08:42→20:15)
[2019-04-13] MEDS: PredniSONE 20 MG TABLET PO SCH (08:42)
[2019-04-13] MEDS: MULTIVITAMINS WITH MINERALS, THERAPEUTIC TABLET PO SCH (08:42)
[2019-04-13] MEDS: METOPROLOL SUCCINATE 50 MG ER TABLET PO SCH (08:44)
[2019-04-13] MEDS: ALLOPURINOL 100 MG TABLET PO SCH (08:44)
[2019-04-13] MEDS: AmLODIPine BESYLATE 10 MG TABLET PO SCH (08:44)
[2019-04-13] MEDS: ASCORBIC ACID 500 MG TABLET PO SCH ×2 (08:45→20:15)
[2019-04-13] MEDS: ZINC SULFATE 220 MG CAPSULE PO SCH (08:45)
[2019-04-13] MEDS: ASPIRIN 81 MG EC TABLET PO SCH (08:45)
[2019-04-13] MEDS: AMIODARONE HCL 200 MG TABLET PO SCH ×2 (08:45→20:15)
[2019-04-13] MEDS: DOCUSATE SODIUM 100 MG CAPSULE PO SCH ×2 (08:45→20:15)
[2019-04-13] MEDS: HydrALAZINE HCL 25 MG TABLET PO SCH ×3 (08:46→20:15)
[2019-04-13] MEDS: POLYETHYLENE GLYCOL 3350 17 GM PACKET PO SCH ×2 (08:46→20:15)
[2019-04-13] MEDS: COLD CREAM, SKIN EMOLLIENT 170 GM JAR TP SCH ×2 (08:54→20:16)
[2019-04-13 09:00] VITALS: BP 127/92
[2019-04-13] MEDS: FUROSEMIDE 40 MG TABLET PO SCH (12:31)
[2019-04-13 16:26] VITALS: BP 130/78
[2019-04-13] MEDS: DOCUSATE SODIUM 283 MG/5 ML MINI-ENEMA PR SCH (17:30)
[2019-04-13 20:15] VITALS: BP 125/68
[2019-04-14] MEDS: 0.9% SODIUM CHLORIDE 10 ML SYRINGE IVP SCH
[2019-04-14 00:21] VITALS: BP 105/68
[2019-04-14] MEDS: LEVOTHYROXINE SODIUM 100 MCG TABLET PO SCH (05:45)
[2019-04-14] MEDS: DOCUSATE SODIUM 283 MG/5 ML MINI-ENEMA PR SCH (05:47)
[2019-04-14 07:34] LABS: CALCIUM, TOTAL 7.7 mg/dL (8.8-10.5); CREATININE 1.65 mg/dL (0.60-1.30); PHOSPHORUS 2.8 mg/dL (2.5-4.9); POTASSIUM 3.7 mmol/L (3.5-5.1); URIC ACID 5.5 mg/dL (2.6-7.2)
[2019-04-14 07:40] VITALS: BP 117/76
[2019-04-14] MEDS: MULTIVITAMINS WITH MINERALS, THERAPEUTIC TABLET PO SCH (08:43)
[2019-04-14] MEDS: AmLODIPine BESYLATE 10 MG TABLET PO SCH (08:44)
[2019-04-14] MEDS: AMIODARONE HCL 200 MG TABLET PO SCH ×2 (08:44→21:05)
[2019-04-14] MEDS: ASPIRIN 81 MG EC TABLET PO SCH (08:44)
[2019-04-14] MEDS: ASCORBIC ACID 500 MG TABLET PO SCH ×2 (08:44→21:08)
[2019-04-14] MEDS: METOPROLOL SUCCINATE 50 MG ER TABLET PO SCH (08:45)
[2019-04-14] MEDS: PredniSONE 20 MG TABLET PO SCH (08:45)
[2019-04-14] MEDS: ALLOPURINOL 100 MG TABLET PO SCH (08:45)
[2019-04-14] MEDS: ZINC SULFATE 220 MG CAPSULE PO SCH (08:45)
[2019-04-14] MEDS: DOCUSATE SODIUM 100 MG CAPSULE PO SCH ×2 (08:46→21:08)
[2019-04-14] MEDS: POLYETHYLENE GLYCOL 3350 17 GM PACKET PO SCH ×2 (08:46→21:00)
[2019-04-14] MEDS: FUROSEMIDE 40 MG TABLET PO SCH (08:47)
[2019-04-14] MEDS: HydrALAZINE HCL 25 MG TABLET PO SCH ×3 (08:47→21:08)
[2019-04-14] MEDS: LACTOBAC ACID/BULG/BIFID/THERM TABLET PO SCH ×2 (08:48→21:05)
[2019-04-14] MEDS: EPOETIN ALFA 10,000 UNITS/ML VIAL SQ SCH (09:07)
[2019-04-14] MEDS: COLD CREAM, SKIN EMOLLIENT 170 GM JAR TP SCH ×2 (09:08→21:08)
[2019-04-14 16:39] VITALS: BP 113/77
[2019-04-14 21:00] VITALS: BP 118/66
[2019-04-15] VITALS: BP 121/71
[2019-04-15] MEDS: LEVOTHYROXINE SODIUM 100 MCG TABLET PO SCH (06:22)
[2019-04-15] MEDS: DOCUSATE SODIUM 283 MG/5 ML MINI-ENEMA PR SCH (06:26)
[2019-04-15] MEDS ORDERED: PredniSONE 20 MG TABLET PO SCH (07:30)
[2019-04-15] MEDS: DOCUSATE SODIUM 100 MG CAPSULE PO SCH ×2 (07:53→20:20)
[2019-04-15] MEDS: ASPIRIN 81 MG EC TABLET PO SCH (07:53)
[2019-04-15] MEDS: LACTOBAC ACID/BULG/BIFID/THERM TABLET PO SCH ×2 (07:53→20:20)
[2019-04-15] MEDS: AmLODIPine BESYLATE 10 MG TABLET PO SCH (07:54)
[2019-04-15] MEDS: METOPROLOL SUCCINATE 50 MG ER TABLET PO SCH (07:54)
[2019-04-15] MEDS: HydrALAZINE HCL 25 MG TABLET PO SCH ×3 (07:54→20:20)
[2019-04-15] MEDS: ASCORBIC ACID 500 MG TABLET PO SCH ×2 (07:55→20:20)
[2019-04-15] MEDS: MULTIVITAMINS WITH MINERALS, THERAPEUTIC TABLET PO SCH (07:55)
[2019-04-15] MEDS: FUROSEMIDE 40 MG TABLET PO SCH (07:55)
[2019-04-15] MEDS: POLYETHYLENE GLYCOL 3350 17 GM PACKET PO SCH ×3 (07:55→20:23)
[2019-04-15] MEDS: ALLOPURINOL 100 MG TABLET PO SCH (07:55)
[2019-04-15] MEDS: AMIODARONE HCL 200 MG TABLET PO SCH ×2 (07:55→20:20)
[2019-04-15] MEDS: COLD CREAM, SKIN EMOLLIENT 170 GM JAR TP SCH ×2 (07:58→20:21)
[2019-04-15 09:28] VITALS: BP 129/78
[2019-04-15] MEDS: HYDROCODONE/ACETAMINOPHEN 10-325 MG TABLET PO PRN ×2 (10:50→19:27)
[2019-04-15 15:31] VITALS: BP 121/66
[2019-04-15 16:54] VITALS: BP 113/63
[2019-04-15 19:17] LABS: APPEARANCE,URINE CLOUDY (CLEAR); BILIRUBIN,URINE NEGATIVE (NEGATIVE); GLUCOSE, URINE (UA) NEGATIVE (NEGATIVE); KETONES,URINE NEGATIVE (NEGATIVE); LEUKOCYTE ESTERASE ,URINE SMALL (NEGATIVE); NITRATE,URINE NEGATIVE (NEGATIVE); OCCULT BLOOD,URINE NEGATIVE (NEGATIVE); PROTEIN,URINE NEGATIVE (NEGATIVE); UROBILINOGEN,URINE 0.2 mg/dL (<=1.0)
[2019-04-15 19:25] LABS: BACTERIA,URINE Many /HPF (None Seen); RBC,URINE 0-2 /HPF (0-2); SQUAMOUS EPITHELIAL CELL,UR Few /LPF (None Seen); WBC,URINE 26-50 /HPF (0-5)
[2019-04-15 20:18] VITALS: BP 115/67
[2019-04-15] MEDS: ATORVASTATIN CALCIUM 40 MG TABLET PO SCH (20:20)
[2019-04-15] MEDS: ENOXAPARIN SODIUM 30 MG/0.3 ML PF SYRINGE SQ SCH (20:20)
[2019-04-15 23:54] VITALS: BP 139/63
[2019-04-16] MEDS: LEVOTHYROXINE SODIUM 100 MCG TABLET PO SCH (06:37)
[2019-04-16 06:40] LABS: BASOPHILS % (AUTO) 0.5 % (0.0-2.0); EOSINOPHILS % (AUTO) 8.1 % (1.0-6.0); HEMATOCRIT 34.7 % (41-53); LYMPHOCYTES % (AUTO) 18.9 % (22.0-44.0); MEAN CORPUSCULAR HEMOGLOBIN 29.6 pg (26.0-34.0); MEAN CORPUSCULAR HGB CONC 31.7 G/dL (31.0-37.0); MEAN CORPUSCULAR VOLUME 93 fL (80-100); MONOCYTES % (AUTO) 9.1 % (2.0-9.0); NEUTROPHILS # (AUTO) 6.7 K/uL (1.8-7.7); NEUTROPHILS % (AUTO) 63.4 % (40.0-70.0); PLATELET COUNT (AUTO) 261 K/uL (150-450); RED BLOOD CELL COUNT(AUTO) 3.72 MIL/uL (4.50-5.90); RED CELL DISTRIBUTION WIDTH 19.5 % (11.5-14.5)
[2019-04-16 06:50] LABS: CREATININE 1.52 mg/dL (0.60-1.30); MAGNESIUM 1.5 mg/dL (1.80-2.40); PHOSPHORUS 3.5 mg/dL (2.5-4.9); POTASSIUM 3.8 mmol/L (3.5-5.1)
[2019-04-16] MEDS: DOCUSATE SODIUM 283 MG/5 ML MINI-ENEMA PR SCH (06:59)
[2019-04-16 07:19] VITALS: BP 126/62
[2019-04-16] MEDS ORDERED: PredniSONE 10 MG TABLET PO SCH (07:30)
[2019-04-16] MEDS: POLYETHYLENE GLYCOL 3350 17 GM PACKET PO SCH ×3 (07:59→20:54)
[2019-04-16] MEDS ORDERED: MAGNESIUM SULFATE 2 GM in DEXTROSE 5%-WATER 50 ML IV ONE (08:00)
[2019-04-16] MEDS: EPOETIN ALFA 10,000 UNITS/ML VIAL SQ SCH (08:01)
[2019-04-16] MEDS: METOPROLOL SUCCINATE 50 MG ER TABLET PO SCH (08:02)
[2019-04-16] MEDS: ASCORBIC ACID 500 MG TABLET PO SCH ×2 (08:02→20:54)
[2019-04-16] MEDS: DOCUSATE SODIUM 100 MG CAPSULE PO SCH ×2 (08:02→20:53)
[2019-04-16] MEDS: ASPIRIN 81 MG EC TABLET PO SCH (08:02)
[2019-04-16] MEDS: ENOXAPARIN SODIUM 30 MG/0.3 ML PF SYRINGE SQ SCH (08:02)
[2019-04-16] MEDS: AmLODIPine BESYLATE 5 MG TABLET PO SCH (08:02)
[2019-04-16] MEDS: ALLOPURINOL 100 MG TABLET PO SCH (08:02)
[2019-04-16] MEDS: MULTIVITAMINS WITH MINERALS, THERAPEUTIC TABLET PO SCH (08:03)
[2019-04-16] MEDS: AMIODARONE HCL 200 MG TABLET PO SCH ×2 (08:03→20:53)
[2019-04-16] MEDS: HydrALAZINE HCL 25 MG TABLET PO SCH ×3 (08:03→20:54)
[2019-04-16] MEDS: COLD CREAM, SKIN EMOLLIENT 170 GM JAR TP SCH ×2 (08:03→20:55)
[2019-04-16] MEDS: LACTOBAC ACID/BULG/BIFID/THERM TABLET PO SCH ×2 (08:03→20:53)
[2019-04-16] MEDS: FUROSEMIDE 40 MG TABLET PO SCH (08:03)
[2019-04-16] MEDS ORDERED: MAGNESIUM OXIDE 400 MG TABLET PO ONE (08:15)
[2019-04-16 15:48] VITALS: BP 133/72
[2019-04-16 20:45] VITALS: BP 122/75
[2019-04-16] MEDS: ATORVASTATIN CALCIUM 40 MG TABLET PO SCH (20:54)
[2019-04-17 05:34] VITALS: BP 132/74
[2019-04-17] MEDS: LEVOTHYROXINE SODIUM 100 MCG TABLET PO SCH (06:28)
[2019-04-17] MEDS: DOCUSATE SODIUM 283 MG/5 ML MINI-ENEMA PR SCH (06:31)
[2019-04-17] MEDS ORDERED: PredniSONE 20 MG TABLET PO SCH (07:30)
[2019-04-17 07:45] VITALS: BP 148/94
[2019-04-17] MEDS: FUROSEMIDE 40 MG TABLET PO SCH (07:53)
[2019-04-17] MEDS: MULTIVITAMINS WITH MINERALS, THERAPEUTIC TABLET PO SCH (07:53)
[2019-04-17] MEDS: LACTOBAC ACID/BULG/BIFID/THERM TABLET PO SCH ×2 (07:56→20:48)
[2019-04-17] MEDS: AMIODARONE HCL 200 MG TABLET PO SCH ×2 (07:56→20:47)
[2019-04-17] MEDS: APIXABAN 2.5 MG TABLET PO SCH ×2 (07:56→20:49)
[2019-04-17] MEDS: ASCORBIC ACID 500 MG TABLET PO SCH ×2 (07:56→20:49)
[2019-04-17] MEDS: DOCUSATE SODIUM 100 MG CAPSULE PO SCH ×2 (07:56→20:49)
[2019-04-17] MEDS: METOPROLOL SUCCINATE 50 MG ER TABLET PO SCH (07:56)
[2019-04-17] MEDS: HydrALAZINE HCL 25 MG TABLET PO SCH ×3 (07:56→20:49)
[2019-04-17] MEDS: AmLODIPine BESYLATE 5 MG TABLET PO SCH (07:57)
[2019-04-17] MEDS: ASPIRIN 81 MG EC TABLET PO SCH (07:57)
[2019-04-17] MEDS: ALLOPURINOL 100 MG TABLET PO SCH (07:57)
[2019-04-17] MEDS: COLD CREAM, SKIN EMOLLIENT 170 GM JAR TP SCH ×2 (07:58→20:53)
[2019-04-17] MEDS: HYDROCODONE/ACETAMINOPHEN 10-325 MG TABLET PO PRN (08:46)
[2019-04-17] MEDS: POLYETHYLENE GLYCOL 3350 17 GM PACKET PO SCH ×2 (09:00→20:49)
[2019-04-17] MEDS: ATORVASTATIN CALCIUM 40 MG TABLET PO SCH (20:48)
[2019-04-17] MEDS: HYDROCODONE/ACETAMINOPHEN 5-325 MG TABLET PO PRN (20:52)
[2019-04-17 20:55] VITALS: BP 138/88
[2019-04-18 02:50] VITALS: BP 140/93
[2019-04-18] MEDS: LEVOTHYROXINE SODIUM 100 MCG TABLET PO SCH (06:08)
[2019-04-18 06:56] LABS: BASOPHILS % (AUTO) 0.7 % (0.0-2.0); EOSINOPHILS % (AUTO) 7.9 % (1.0-6.0); HEMATOCRIT 35.9 % (41-53); HEMOGLOBIN 11.4 g/dL (13.5-17.5); LYMPHOCYTES # (AUTO) 1.4 K/uL (1.0-4.8); LYMPHOCYTES % (AUTO) 15.7 % (22.0-44.0); MEAN CORPUSCULAR HEMOGLOBIN 29.6 pg (26.0-34.0); MEAN CORPUSCULAR HGB CONC 31.8 G/dL (31.0-37.0); MEAN CORPUSCULAR VOLUME 93 fL (80-100); MONOCYTES # (AUTO) 0.8 K/uL (0.1-1.0); NEUTROPHILS # (AUTO) 5.9 K/uL (1.8-7.7); NEUTROPHILS % (AUTO) 66.7 % (40.0-70.0); PLATELET COUNT (AUTO) 336 K/uL (150-450); RED BLOOD CELL COUNT(AUTO) 3.86 MIL/uL (4.50-5.90); RED CELL DISTRIBUTION WIDTH 19.9 % (11.5-14.5)
[2019-04-18] MEDS: DOCUSATE SODIUM 283 MG/5 ML MINI-ENEMA PR SCH (07:00)
[2019-04-18 07:17] LABS: CALCIUM, TOTAL 7.6 mg/dL (8.8-10.5); CREATININE 1.54 mg/dL (0.60-1.30); MAGNESIUM 1.6 mg/dL (1.80-2.40); PHOSPHORUS 3.1 mg/dL (2.5-4.9); POTASSIUM 3.6 mmol/L (3.5-5.1)
[2019-04-18] MEDS ORDERED: MAGNESIUM OXIDE 400 MG TABLET PO ONE (07:45)
[2019-04-18] MEDS: ASPIRIN 81 MG EC TABLET PO SCH (08:15)
[2019-04-18] MEDS: ALLOPURINOL 100 MG TABLET PO SCH (08:15)
[2019-04-18] MEDS: HydrALAZINE HCL 25 MG TABLET PO SCH ×3 (08:15→20:46)
[2019-04-18] MEDS: ASCORBIC ACID 500 MG TABLET PO SCH ×2 (08:15→20:47)
[2019-04-18] MEDS: MULTIVITAMINS WITH MINERALS, THERAPEUTIC TABLET PO SCH (08:15)
[2019-04-18] MEDS: AmLODIPine BESYLATE 5 MG TABLET PO SCH (08:15)
[2019-04-18] MEDS: LACTOBAC ACID/BULG/BIFID/THERM TABLET PO SCH ×2 (08:16→20:46)
[2019-04-18] MEDS: METOPROLOL SUCCINATE 50 MG ER TABLET PO SCH (08:16)
[2019-04-18] MEDS: APIXABAN 2.5 MG TABLET PO SCH ×2 (08:16→20:47)
[2019-04-18] MEDS: DOCUSATE SODIUM 100 MG CAPSULE PO SCH ×2 (08:16→20:47)
[2019-04-18] MEDS: PredniSONE 10 MG TABLET PO SCH (08:16)
[2019-04-18] MEDS: AMIODARONE HCL 200 MG TABLET PO SCH ×2 (08:16→20:47)
[2019-04-18] MEDS: POLYETHYLENE GLYCOL 3350 17 GM PACKET PO SCH ×2 (08:18→20:47)
[2019-04-18] MEDS: EPOETIN ALFA 10,000 UNITS/ML VIAL SQ SCH (08:18)
[2019-04-18 08:19] VITALS: BP 131/82
[2019-04-18] MEDS: FUROSEMIDE 40 MG TABLET PO SCH ×2 (08:19→20:47)
[2019-04-18] MEDS: COLD CREAM, SKIN EMOLLIENT 170 GM JAR TP SCH ×2 (08:19→20:47)
[2019-04-18] MEDS: HYDROCODONE/ACETAMINOPHEN 5-325 MG TABLET PO PRN (08:19)
[2019-04-18 16:06] VITALS: BP 115/55
[2019-04-18 20:45] VITALS: BP 124/68
[2019-04-18] MEDS: ATORVASTATIN CALCIUM 40 MG TABLET PO SCH (20:47)
[2019-04-19] VITALS: BP 128/83
[2019-04-19] MEDS: DOCUSATE SODIUM 283 MG/5 ML MINI-ENEMA PR SCH (06:09)
[2019-04-19] MEDS: LEVOTHYROXINE SODIUM 100 MCG TABLET PO SCH (06:10)
[2019-04-19] MEDS: FUROSEMIDE 40 MG TABLET PO SCH ×2 (07:44→18:41)
[2019-04-19] MEDS: HydrALAZINE HCL 25 MG TABLET PO SCH ×3 (07:46→20:17)
[2019-04-19] MEDS: DOCUSATE SODIUM 100 MG CAPSULE PO SCH ×2 (07:46→20:17)
[2019-04-19] MEDS: ALLOPURINOL 100 MG TABLET PO SCH (07:47)
[2019-04-19] MEDS: ASCORBIC ACID 500 MG TABLET PO SCH ×2 (07:47→20:18)
[2019-04-19] MEDS: APIXABAN 5 MG TABLET PO SCH ×2 (07:47→20:17)
[2019-04-19] MEDS: AmLODIPine BESYLATE 5 MG TABLET PO SCH (07:47)
[2019-04-19] MEDS: MULTIVITAMINS WITH MINERALS, THERAPEUTIC TABLET PO SCH (07:47)
[2019-04-19] MEDS: PredniSONE 10 MG TABLET PO SCH (07:47)
[2019-04-19] MEDS: ASPIRIN 81 MG EC TABLET PO SCH (07:47)
[2019-04-19] MEDS: AMIODARONE HCL 200 MG TABLET PO SCH ×2 (07:47→20:16)
[2019-04-19] MEDS: METOPROLOL SUCCINATE 50 MG ER TABLET PO SCH (07:49)
[2019-04-19] MEDS: COLD CREAM, SKIN EMOLLIENT 170 GM JAR TP SCH ×2 (07:56→20:19)
[2019-04-19 08:00] VITALS: BP 124/78
[2019-04-19] MEDS: HYDROCODONE/ACETAMINOPHEN 10-325 MG TABLET PO PRN (08:00)
[2019-04-19 08:04] LABS: ANION GAP 6 mmol/L (8-16); CALCIUM, TOTAL 7.9 mg/dL (8.8-10.5); CARBON DIOXIDE 31 mmol/L (22-29); CHLORIDE 107 mmol/L (98-107); CREATININE 1.28 mg/dL (0.60-1.30); GLOMERULAR FILTR. RATE CALC > 60 mL/min (>60); GLUCOSE,RANDOM 79 mg/dL (70-110); PHOSPHORUS 3.2 mg/dL (2.5-4.9); POTASSIUM 3.5 mmol/L (3.5-5.1); SODIUM SERUM 144 mmol/L (136-145); UREA NITROGEN, BLOOD 13 mg/dL (7-18)
[2019-04-19] MEDS: POLYETHYLENE GLYCOL 3350 17 GM PACKET PO SCH ×2 (08:31→20:19)
[2019-04-19] MEDS ORDERED: MAGNESIUM OXIDE 400 MG TABLET PO ONE ×2 (10:00→21:00)
[2019-04-19] MEDS: LACTOBAC ACID/BULG/BIFID/THERM TABLET PO SCH ×2 (10:01→20:19)
[2019-04-19] MEDS ORDERED: FUROSEMIDE 40 MG TABLET PO SCH (14:00)
[2019-04-19 16:05] VITALS: BP 138/80
[2019-04-19 20:14] VITALS: BP 132/56
[2019-04-19] MEDS: ATORVASTATIN CALCIUM 40 MG TABLET PO SCH (20:17)
[2019-04-19 23:38] VITALS: BP 127/75
[2019-04-20] MEDS: LEVOTHYROXINE SODIUM 100 MCG TABLET PO SCH (06:19)
[2019-04-20] MEDS: FUROSEMIDE 40 MG TABLET PO SCH ×2 (06:19→18:23)
[2019-04-20] MEDS: DOCUSATE SODIUM 283 MG/5 ML MINI-ENEMA PR SCH (06:20)
[2019-04-20 07:24] VITALS: BP 120/72
[2019-04-20] MEDS: ALLOPURINOL 100 MG TABLET PO SCH (08:48)
[2019-04-20] MEDS: METOPROLOL SUCCINATE 50 MG ER TABLET PO SCH (08:48)
[2019-04-20] MEDS: AMIODARONE HCL 200 MG TABLET PO SCH ×2 (08:49→20:10)
[2019-04-20] MEDS: MULTIVITAMINS WITH MINERALS, THERAPEUTIC TABLET PO SCH (08:49)
[2019-04-20] MEDS: APIXABAN 5 MG TABLET PO SCH ×2 (08:49→20:10)
[2019-04-20] MEDS: DOCUSATE SODIUM 100 MG CAPSULE PO SCH ×2 (08:49→09:10)
[2019-04-20] MEDS: ASCORBIC ACID 500 MG TABLET PO SCH ×2 (08:49→20:10)
[2019-04-20] MEDS: AmLODIPine BESYLATE 2.5 MG TABLET PO SCH (08:49)
[2019-04-20] MEDS: ASPIRIN 81 MG EC TABLET PO SCH (08:49)
[2019-04-20] MEDS: HydrALAZINE HCL 25 MG TABLET PO SCH ×3 (08:49→20:10)
[2019-04-20] MEDS: POLYETHYLENE GLYCOL 3350 17 GM PACKET PO SCH ×2 (08:51→20:11)
[2019-04-20] MEDS: COLD CREAM, SKIN EMOLLIENT 170 GM JAR TP SCH ×2 (08:51→20:13)
[2019-04-20] MEDS: HYDROCODONE/ACETAMINOPHEN 10-325 MG TABLET PO PRN (09:02)
[2019-04-20] MEDS: LACTOBAC ACID/BULG/BIFID/THERM TABLET PO SCH ×2 (09:11→20:10)
[2019-04-20] MEDS: MAGNESIUM OXIDE 400 MG TABLET PO SCH ×2 (13:48→20:10)
[2019-04-20 16:25] VITALS: BP 124/76
[2019-04-20 20:09] VITALS: BP 125/85
[2019-04-20] MEDS: ATORVASTATIN CALCIUM 40 MG TABLET PO SCH (20:10)
[2019-04-21 05:30] VITALS: BP 123/71
[2019-04-21] MEDS: LEVOTHYROXINE SODIUM 100 MCG TABLET PO SCH (06:24)
[2019-04-21] MEDS: DOCUSATE SODIUM 283 MG/5 ML MINI-ENEMA PR SCH (06:24)
[2019-04-21] MEDS: FUROSEMIDE 40 MG TABLET PO SCH (06:24)
[2019-04-21] MEDS: LACTOBAC ACID/BULG/BIFID/THERM TABLET PO SCH ×2 (07:49→20:39)
[2019-04-21] MEDS: HydrALAZINE HCL 25 MG TABLET PO SCH ×3 (07:49→20:39)
[2019-04-21] MEDS: METOPROLOL SUCCINATE 50 MG ER TABLET PO SCH (07:50)
[2019-04-21] MEDS: DOCUSATE SODIUM 100 MG CAPSULE PO SCH ×2 (07:50→20:39)
[2019-04-21] MEDS: ASPIRIN 81 MG EC TABLET PO SCH (07:50)
[2019-04-21] MEDS: AmLODIPine BESYLATE 2.5 MG TABLET PO SCH (07:51)
[2019-04-21] MEDS: ASCORBIC ACID 500 MG TABLET PO SCH ×2 (07:51→20:40)
[2019-04-21] MEDS: MAGNESIUM OXIDE 400 MG TABLET PO SCH ×2 (07:51→20:39)
[2019-04-21] MEDS: ALLOPURINOL 100 MG TABLET PO SCH (07:51)
[2019-04-21] MEDS: POLYETHYLENE GLYCOL 3350 17 GM PACKET PO SCH ×2 (07:51→20:40)
[2019-04-21] MEDS: MULTIVITAMINS WITH MINERALS, THERAPEUTIC TABLET PO SCH (07:51)
[2019-04-21] MEDS: AMIODARONE HCL 200 MG TABLET PO SCH ×2 (07:51→20:39)
[2019-04-21] MEDS: APIXABAN 5 MG TABLET PO SCH ×2 (07:52→20:39)
[2019-04-21] MEDS: COLD CREAM, SKIN EMOLLIENT 170 GM JAR TP SCH ×2 (08:00→20:40)
[2019-04-21 08:42] VITALS: BP 125/80
[2019-04-21] MEDS: HYDROCODONE/ACETAMINOPHEN 10-325 MG TABLET PO PRN (09:08)
[2019-04-21 11:32] LABS: CREATININE 1.57 mg/dL (0.60-1.30); MAGNESIUM 2.1 mg/dL (1.80-2.40); PHOSPHORUS 3.1 mg/dL (2.5-4.9); POTASSIUM 4.5 mmol/L (3.5-5.1)
[2019-04-21 15:30] VITALS: BP 105/70
[2019-04-21 16:45] VITALS: BP 133/64
[2019-04-21 20:38] VITALS: BP 116/75
[2019-04-21] MEDS: ATORVASTATIN CALCIUM 40 MG TABLET PO SCH (20:39)
[2019-04-22 05:00] VITALS: BP 125/72
[2019-04-22] MEDS: DOCUSATE SODIUM 283 MG/5 ML MINI-ENEMA PR SCH (06:09)
[2019-04-22] MEDS: LEVOTHYROXINE SODIUM 100 MCG TABLET PO SCH (06:11)
[2019-04-22 06:34] LABS: CREATININE 1.5 mg/dL (0.60-1.30); MAGNESIUM 1.9 mg/dL (1.80-2.40); PHOSPHORUS 3.3 mg/dL (2.5-4.9); POTASSIUM 3.6 mmol/L (3.5-5.1)
[2019-04-22 07:20] VITALS: BP 116/80
[2019-04-22] MEDS: DOCUSATE SODIUM 100 MG CAPSULE PO SCH ×3 (08:25→20:19)
[2019-04-22] MEDS: AmLODIPine BESYLATE 2.5 MG TABLET PO SCH (08:25)
[2019-04-22] MEDS: APIXABAN 5 MG TABLET PO SCH ×2 (08:25→20:19)
[2019-04-22] MEDS: AMIODARONE HCL 200 MG TABLET PO SCH ×2 (08:25→20:19)
[2019-04-22] MEDS: LACTOBAC ACID/BULG/BIFID/THERM TABLET PO SCH ×2 (08:25→20:19)
[2019-04-22] MEDS: ALLOPURINOL 100 MG TABLET PO SCH (08:26)
[2019-04-22] MEDS: ASCORBIC ACID 500 MG TABLET PO SCH ×2 (08:26→20:20)
[2019-04-22] MEDS: MAGNESIUM OXIDE 400 MG TABLET PO SCH ×2 (08:26→20:21)
[2019-04-22] MEDS: COLD CREAM, SKIN EMOLLIENT 170 GM JAR TP SCH ×2 (08:26→20:22)
[2019-04-22] MEDS: METOPROLOL SUCCINATE 50 MG ER TABLET PO SCH (08:27)
[2019-04-22] MEDS: MULTIVITAMINS WITH MINERALS, THERAPEUTIC TABLET PO SCH (08:30)
[2019-04-22] MEDS: HydrALAZINE HCL 25 MG TABLET PO SCH ×3 (08:30→20:20)
[2019-04-22] MEDS: ASPIRIN 81 MG EC TABLET PO SCH (08:31)
[2019-04-22] MEDS: POLYETHYLENE GLYCOL 3350 17 GM PACKET PO SCH ×2 (08:34→20:21)
[2019-04-22] MEDS: FUROSEMIDE 40 MG TABLET PO SCH (09:00)
[2019-04-22] MEDS ORDERED: FUROSEMIDE 40 MG TABLET PO SCH (09:00)
[2019-04-22] MEDS: HYDROCODONE/ACETAMINOPHEN 10-325 MG TABLET PO PRN ×2 (09:30→20:19)
[2019-04-22 15:45] VITALS: BP 125/78
[2019-04-22 20:15] VITALS: BP 111/68
[2019-04-22] MEDS: ATORVASTATIN CALCIUM 40 MG TABLET PO SCH (20:20)
[2019-04-23 00:15] VITALS: BP 127/63
[2019-04-23] MEDS: LEVOTHYROXINE SODIUM 100 MCG TABLET PO SCH (06:26)
[2019-04-23] MEDS: DOCUSATE SODIUM 283 MG/5 ML MINI-ENEMA PR SCH (06:29)
[2019-04-23 06:31] VITALS: BP 129/101
[2019-04-23] MEDS: HYDROCODONE/ACETAMINOPHEN 10-325 MG TABLET PO PRN (06:31)
[2019-04-23] MEDS: METOPROLOL SUCCINATE 50 MG ER TABLET PO SCH (07:17)
[2019-04-23] MEDS: FUROSEMIDE 40 MG TABLET PO SCH (07:17)
[2019-04-23] MEDS: LACTOBAC ACID/BULG/BIFID/THERM TABLET PO SCH ×2 (07:17→20:04)
[2019-04-23] MEDS: ASCORBIC ACID 500 MG TABLET PO SCH ×2 (07:18→20:05)
[2019-04-23] MEDS: HydrALAZINE HCL 25 MG TABLET PO SCH ×3 (07:18→20:05)
[2019-04-23] MEDS: MAGNESIUM OXIDE 400 MG TABLET PO SCH ×2 (07:18→20:05)
[2019-04-23] MEDS: AMIODARONE HCL 200 MG TABLET PO SCH ×2 (07:18→20:05)
[2019-04-23] MEDS: ASPIRIN 81 MG EC TABLET PO SCH (07:19)
[2019-04-23] MEDS: APIXABAN 5 MG TABLET PO SCH ×2 (07:19→20:05)
[2019-04-23] MEDS: AmLODIPine BESYLATE 2.5 MG TABLET PO SCH (07:19)
[2019-04-23] MEDS: ALLOPURINOL 100 MG TABLET PO SCH (07:19)
[2019-04-23] MEDS: COLD CREAM, SKIN EMOLLIENT 170 GM JAR TP SCH ×2 (07:19→20:06)
[2019-04-23] MEDS: MULTIVITAMINS WITH MINERALS, THERAPEUTIC TABLET PO SCH (07:19)
[2019-04-23] MEDS: DOCUSATE SODIUM 100 MG CAPSULE PO SCH ×2 (07:26→20:05)
[2019-04-23] MEDS: POLYETHYLENE GLYCOL 3350 17 GM PACKET PO SCH ×2 (07:27→20:06)
[2019-04-23 07:30] VITALS: BP 117/78
[2019-04-23 18:44] VITALS: BP 118/73
[2019-04-23 20:01] VITALS: BP 122/69
[2019-04-23] MEDS: ATORVASTATIN CALCIUM 40 MG TABLET PO SCH (20:05)
[2019-04-23 23:00] VITALS: BP 124/75
[2019-04-24] MEDS: HYDROCODONE/ACETAMINOPHEN 10-325 MG TABLET PO PRN ×2 (03:31→15:01)
[2019-04-24] MEDS: LEVOTHYROXINE SODIUM 100 MCG TABLET PO SCH (06:30)
[2019-04-24] MEDS: DOCUSATE SODIUM 283 MG/5 ML MINI-ENEMA PR SCH (06:31)
[2019-04-24 07:03] LABS: CREATININE 1.53 mg/dL (0.60-1.30); PHOSPHORUS 3.6 mg/dL (2.5-4.9); POTASSIUM 3.7 mmol/L (3.5-5.1)
[2019-04-24 07:45] VITALS: BP 131/75
[2019-04-24] MEDS: HydrALAZINE HCL 25 MG TABLET PO SCH ×3 (08:04→20:07)
[2019-04-24] MEDS: MAGNESIUM OXIDE 400 MG TABLET PO SCH ×2 (08:04→20:07)
[2019-04-24] MEDS: LACTOBAC ACID/BULG/BIFID/THERM TABLET PO SCH ×2 (08:04→20:07)
[2019-04-24] MEDS: APIXABAN 5 MG TABLET PO SCH ×2 (08:05→20:07)
[2019-04-24] MEDS: ASCORBIC ACID 500 MG TABLET PO SCH ×2 (08:05→20:07)
[2019-04-24] MEDS: AMIODARONE HCL 200 MG TABLET PO SCH ×2 (08:05→20:10)
[2019-04-24] MEDS: METOPROLOL SUCCINATE 50 MG ER TABLET PO SCH (08:07)
[2019-04-24] MEDS: ALLOPURINOL 100 MG TABLET PO SCH (08:07)
[2019-04-24] MEDS: FUROSEMIDE 40 MG TABLET PO SCH ×2 (08:08→14:32)
[2019-04-24] MEDS: ASPIRIN 81 MG EC TABLET PO SCH (08:08)
[2019-04-24] MEDS: MULTIVITAMINS WITH MINERALS, THERAPEUTIC TABLET PO SCH (08:09)
[2019-04-24] MEDS: POLYETHYLENE GLYCOL 3350 17 GM PACKET PO SCH ×2 (08:09→20:08)
[2019-04-24] MEDS: DOCUSATE SODIUM 100 MG CAPSULE PO SCH ×2 (08:09→20:08)
[2019-04-24] MEDS: AmLODIPine BESYLATE 2.5 MG TABLET PO SCH (08:09)
[2019-04-24] MEDS: COLD CREAM, SKIN EMOLLIENT 170 GM JAR TP SCH ×2 (08:16→20:08)
[2019-04-24] MEDS ORDERED: DOCUSATE SODIUM 283 MG/5 ML MINI-ENEMA PR PRN (10:00)
[2019-04-24] MEDS: LOSARTAN POTASSIUM 25 MG TABLET PO SCH (12:41)
[2019-04-24 15:01] VITALS: BP 136/72
[2019-04-24] MEDS: ATORVASTATIN CALCIUM 40 MG TABLET PO SCH (20:07)
[2019-04-24 20:12] VITALS: BP 132/67
[2019-04-24 23:13] VITALS: BP 139/86
[2019-04-25] MEDS: FUROSEMIDE 40 MG TABLET PO SCH ×2 (06:26→13:07)
[2019-04-25] MEDS: LEVOTHYROXINE SODIUM 100 MCG TABLET PO SCH (06:26)
[2019-04-25 06:28] VITALS: BP 106/73
[2019-04-25] MEDS: HYDROCODONE/ACETAMINOPHEN 10-325 MG TABLET PO PRN ×2 (08:10→20:07)
[2019-04-25 08:11] VITALS: BP 111/63
[2019-04-25] MEDS: LACTOBAC ACID/BULG/BIFID/THERM TABLET PO SCH ×2 (08:24→20:07)
[2019-04-25] MEDS: DOCUSATE SODIUM 100 MG CAPSULE PO SCH ×2 (08:24→20:07)
[2019-04-25] MEDS: METOPROLOL SUCCINATE 50 MG ER TABLET PO SCH (08:27)
[2019-04-25] MEDS: MULTIVITAMINS WITH MINERALS, THERAPEUTIC TABLET PO SCH (08:28)
[2019-04-25] MEDS: ASPIRIN 81 MG EC TABLET PO SCH (08:28)
[2019-04-25] MEDS: APIXABAN 5 MG TABLET PO SCH ×2 (08:28→20:07)
[2019-04-25] MEDS: AMIODARONE HCL 200 MG TABLET PO SCH ×2 (08:28→20:06)
[2019-04-25] MEDS: ALLOPURINOL 100 MG TABLET PO SCH (08:28)
[2019-04-25] MEDS: ASCORBIC ACID 500 MG TABLET PO SCH ×2 (08:28→20:07)
[2019-04-25] MEDS: POLYETHYLENE GLYCOL 3350 17 GM PACKET PO SCH ×2 (09:00→20:07)
[2019-04-25] MEDS: LOSARTAN POTASSIUM 25 MG TABLET PO SCH (10:53)
[2019-04-25] MEDS: HydrALAZINE HCL 25 MG TABLET PO SCH ×3 (10:53→20:06)
[2019-04-25] MEDS: MAGNESIUM OXIDE 400 MG TABLET PO SCH ×2 (10:55→20:07)
[2019-04-25] MEDS: COLD CREAM, SKIN EMOLLIENT 170 GM JAR TP SCH ×2 (10:55→20:08)
[2019-04-25 12:46] LABS: CALCIUM, TOTAL 8.5 mg/dL (8.8-10.5); CREATININE 1.84 mg/dL (0.60-1.30); MAGNESIUM 2.1 mg/dL (1.80-2.40); PHOSPHORUS 3.8 mg/dL (2.5-4.9); POTASSIUM 4.3 mmol/L (3.5-5.1)
[2019-04-25 13:00] VITALS: BP 89/62
[2019-04-25 15:57] VITALS: BP 108/60
[2019-04-25 20:07] VITALS: BP 130/83
[2019-04-25] MEDS: ATORVASTATIN CALCIUM 40 MG TABLET PO SCH (20:07)
[2019-04-25 23:15] VITALS: BP 101/69
[2019-04-26] VITALS (7 sets, daily range): BP systolic 95–121; BP diastolic 62–78
[2019-04-26] MEDS: HYDROCODONE/ACETAMINOPHEN 10-325 MG TABLET PO PRN (04:51)
[2019-04-26] MEDS: LEVOTHYROXINE SODIUM 100 MCG TABLET PO SCH (06:20)
[2019-04-26] MEDS: FUROSEMIDE 40 MG TABLET PO SCH ×2 (06:21→14:21)
[2019-04-26 07:10] LABS: CALCIUM, TOTAL 8.1 mg/dL (8.8-10.5); CREATININE 1.58 mg/dL (0.60-1.30); MAGNESIUM 2.1 mg/dL (1.80-2.40); PHOSPHORUS 3.8 mg/dL (2.5-4.9)
[2019-04-26] MEDS: LACTOBAC ACID/BULG/BIFID/THERM TABLET PO SCH ×2 (07:49→20:23)
[2019-04-26] MEDS: APIXABAN 5 MG TABLET PO SCH ×2 (07:49→20:23)
[2019-04-26] MEDS: DOCUSATE SODIUM 100 MG CAPSULE PO SCH ×3 (07:49→20:37)
[2019-04-26] MEDS: ASPIRIN 81 MG EC TABLET PO SCH (07:49)
[2019-04-26] MEDS: AMIODARONE HCL 200 MG TABLET PO SCH ×2 (07:49→20:25)
[2019-04-26] MEDS: ASCORBIC ACID 500 MG TABLET PO SCH ×2 (07:50→20:23)
[2019-04-26] MEDS: MAGNESIUM OXIDE 400 MG TABLET PO SCH ×2 (07:50→20:24)
[2019-04-26] MEDS: POLYETHYLENE GLYCOL 3350 17 GM PACKET PO SCH ×2 (07:50→20:37)
[2019-04-26] MEDS: MULTIVITAMINS WITH MINERALS, THERAPEUTIC TABLET PO SCH (07:50)
[2019-04-26] MEDS: ALLOPURINOL 100 MG TABLET PO SCH (07:50)
[2019-04-26] MEDS: COLD CREAM, SKIN EMOLLIENT 170 GM JAR TP SCH ×2 (07:50→20:27)
[2019-04-26] MEDS: HydrALAZINE HCL 25 MG TABLET PO SCH ×3 (07:50→20:25)
[2019-04-26] MEDS: METOPROLOL SUCCINATE 50 MG ER TABLET PO SCH (07:50)
[2019-04-26] MEDS: ATORVASTATIN CALCIUM 40 MG TABLET PO SCH (20:23)
[2019-04-27] MEDS: HYDROCODONE/ACETAMINOPHEN 10-325 MG TABLET PO PRN (03:53)
[2019-04-27] MEDS: LEVOTHYROXINE SODIUM 100 MCG TABLET PO SCH (06:23)
[2019-04-27] MEDS: FUROSEMIDE 40 MG TABLET PO SCH ×3 (06:23→14:06)
[2019-04-27 06:27] VITALS: BP 118/73
[2019-04-27 07:10] VITALS: BP 105/60
[2019-04-27 07:30] LABS: CREATININE 1.66 mg/dL (0.60-1.30); MAGNESIUM 2.1 mg/dL (1.80-2.40); PHOSPHORUS 3.6 mg/dL (2.5-4.9)
[2019-04-27 07:50] VITALS: BP 110/70
[2019-04-27] MEDS: MAGNESIUM OXIDE 400 MG TABLET PO SCH ×2 (07:52→19:59)
[2019-04-27] MEDS: ASCORBIC ACID 500 MG TABLET PO SCH ×2 (07:52→19:59)
[2019-04-27] MEDS: LACTOBAC ACID/BULG/BIFID/THERM TABLET PO SCH ×2 (07:52→19:59)
[2019-04-27] MEDS: ALLOPURINOL 100 MG TABLET PO SCH (07:52)
[2019-04-27] MEDS: APIXABAN 5 MG TABLET PO SCH ×2 (07:52→19:59)
[2019-04-27] MEDS: MULTIVITAMINS WITH MINERALS, THERAPEUTIC TABLET PO SCH (07:52)
[2019-04-27] MEDS: AMIODARONE HCL 200 MG TABLET PO SCH ×2 (07:52→19:59)
[2019-04-27] MEDS: HydrALAZINE HCL 25 MG TABLET PO SCH ×3 (07:52→19:59)
[2019-04-27] MEDS: COLD CREAM, SKIN EMOLLIENT 170 GM JAR TP SCH ×2 (07:53→21:00)
[2019-04-27] MEDS: DOCUSATE SODIUM 100 MG CAPSULE PO SCH ×3 (07:53→21:00)
[2019-04-27] MEDS: ASPIRIN 81 MG EC TABLET PO SCH (07:53)
[2019-04-27] MEDS: METOPROLOL SUCCINATE 50 MG ER TABLET PO SCH (07:53)
[2019-04-27] MEDS: POLYETHYLENE GLYCOL 3350 17 GM PACKET PO SCH ×3 (07:53→21:00)
[2019-04-27 14:00] VITALS: BP 94/52
[2019-04-27 15:38] VITALS: BP 133/73
[2019-04-27] MEDS: ATORVASTATIN CALCIUM 40 MG TABLET PO SCH (19:59)
[2019-04-27 20:05] VITALS: BP 120/72
[2019-04-28] VITALS (7 sets, daily range): BP systolic 121–159; BP diastolic 63–89
[2019-04-28] MEDS: HYDROCODONE/ACETAMINOPHEN 10-325 MG TABLET PO PRN (05:45)
[2019-04-28] MEDS: LEVOTHYROXINE SODIUM 100 MCG TABLET PO SCH (06:44)
[2019-04-28] MEDS: FUROSEMIDE 40 MG TABLET PO SCH ×2 (06:44→15:01)
[2019-04-28 07:26] LABS: BASOPHILS % (AUTO) 0.6 % (0.0-2.0); EOSINOPHILS % (AUTO) 2.2 % (1.0-6.0); HEMATOCRIT 33.8 % (41-53); HEMOGLOBIN 10.9 g/dL (13.5-17.5); LYMPHOCYTES # (AUTO) 1.3 K/uL (1.0-4.8); LYMPHOCYTES % (AUTO) 15.1 % (22.0-44.0); MEAN CORPUSCULAR HEMOGLOBIN 30.4 pg (26.0-34.0); MEAN CORPUSCULAR HGB CONC 32.2 G/dL (31.0-37.0); MEAN CORPUSCULAR VOLUME 95 fL (80-100); MONOCYTES # (AUTO) 0.7 K/uL (0.1-1.0); NEUTROPHILS # (AUTO) 6.3 K/uL (1.8-7.7); NEUTROPHILS % (AUTO) 74.1 % (40.0-70.0); PLATELET COUNT (AUTO) 175 K/uL (150-450); RED BLOOD CELL COUNT(AUTO) 3.57 MIL/uL (4.50-5.90); RED CELL DISTRIBUTION WIDTH 18.5 % (11.5-14.5)
[2019-04-28] MEDS: APIXABAN 5 MG TABLET PO SCH ×2 (07:51→22:10)
[2019-04-28] MEDS: ASPIRIN 81 MG EC TABLET PO SCH (07:51)
[2019-04-28] MEDS: LACTOBAC ACID/BULG/BIFID/THERM TABLET PO SCH ×2 (07:51→22:09)
[2019-04-28] MEDS: DOCUSATE SODIUM 100 MG CAPSULE PO SCH ×2 (07:51→21:00)
[2019-04-28] MEDS: MAGNESIUM OXIDE 400 MG TABLET PO SCH ×2 (07:51→22:10)
[2019-04-28] MEDS: MULTIVITAMINS WITH MINERALS, THERAPEUTIC TABLET PO SCH (07:51)
[2019-04-28] MEDS: ASCORBIC ACID 500 MG TABLET PO SCH ×2 (07:51→22:11)
[2019-04-28] MEDS: ALLOPURINOL 100 MG TABLET PO SCH (07:51)
[2019-04-28] MEDS: COLD CREAM, SKIN EMOLLIENT 170 GM JAR TP SCH ×2 (07:52→22:13)
[2019-04-28] MEDS: POLYETHYLENE GLYCOL 3350 17 GM PACKET PO SCH ×2 (07:52→21:00)
[2019-04-28] MEDS: HydrALAZINE HCL 25 MG TABLET PO SCH ×3 (09:00→22:09)
[2019-04-28] MEDS: AMIODARONE HCL 200 MG TABLET PO SCH ×2 (09:00→22:12)
[2019-04-28] MEDS: METOPROLOL SUCCINATE 50 MG ER TABLET PO SCH (09:00)
[2019-04-28] MEDS ORDERED: FURO40 PO (22:00)
[2019-04-28] MEDS ORDERED: ALLO100T PO (22:00)
[2019-04-28] MEDS ORDERED: HYDR-2924 PO (22:00)
[2019-04-28] MEDS ORDERED: APIX5TAB PO (22:00)
[2019-04-28] MEDS ORDERED: MAGOX PO (22:00)
[2019-04-28] MEDS ORDERED: ASCO500 PO (22:00)
[2019-04-28] MEDS ORDERED: MULT-248 PO (22:00)
[2019-04-28] MEDS: ATORVASTATIN CALCIUM 40 MG TABLET PO SCH (22:13)
[2019-04-29 05:57] VITALS: BP 147/81
[2019-04-29] MEDS: LEVOTHYROXINE SODIUM 100 MCG TABLET PO SCH (06:00)
[2019-04-29] MEDS: FUROSEMIDE 40 MG TABLET PO SCH (06:00)
[2019-04-29 07:45] VITALS: BP 129/60
[2019-04-29 07:49] LABS: BASOPHILS % (AUTO) 1.1 % (0.0-2.0); EOSINOPHILS % (AUTO) 3.3 % (1.0-6.0); HEMATOCRIT 33.1 % (41-53); HEMOGLOBIN 10.9 g/dL (13.5-17.5); LYMPHOCYTES # (AUTO) 0.9 K/uL (1.0-4.8); LYMPHOCYTES % (AUTO) 14.6 % (22.0-44.0); MEAN CORPUSCULAR HEMOGLOBIN 30.6 pg (26.0-34.0); MEAN CORPUSCULAR HGB CONC 32.9 G/dL (31.0-37.0); MEAN CORPUSCULAR VOLUME 93 fL (80-100); MONOCYTES # (AUTO) 0.5 K/uL (0.1-1.0); MONOCYTES % (AUTO) 8.2 % (2.0-9.0); NEUTROPHILS # (AUTO) 4.7 K/uL (1.8-7.7); NEUTROPHILS % (AUTO) 72.8 % (40.0-70.0); PLATELET COUNT (AUTO) 229 K/uL (150-450); RED BLOOD CELL COUNT(AUTO) 3.56 MIL/uL (4.50-5.90)
[2019-04-29 08:02] LABS: CALCIUM, TOTAL 8.4 mg/dL (8.8-10.5); CREATININE 1.45 mg/dL (0.60-1.30); POTASSIUM 3.5 mmol/L (3.5-5.1)
[2019-04-29] MEDS: ASPIRIN 81 MG EC TABLET PO SCH (08:16)
[2019-04-29] MEDS: DOCUSATE SODIUM 100 MG CAPSULE PO SCH (08:16)
[2019-04-29] MEDS: LACTOBAC ACID/BULG/BIFID/THERM TABLET PO SCH (08:16)
[2019-04-29] MEDS: ASCORBIC ACID 500 MG TABLET PO SCH (08:16)
[2019-04-29] MEDS: MULTIVITAMINS WITH MINERALS, THERAPEUTIC TABLET PO SCH (08:16)
[2019-04-29] MEDS: HydrALAZINE HCL 25 MG TABLET PO SCH (08:17)
[2019-04-29] MEDS: ALLOPURINOL 100 MG TABLET PO SCH (08:17)
[2019-04-29] MEDS: MAGNESIUM OXIDE 400 MG TABLET PO SCH (08:17)
[2019-04-29] MEDS: AMIODARONE HCL 200 MG TABLET PO SCH (08:17)
[2019-04-29] MEDS: METOPROLOL SUCCINATE 50 MG ER TABLET PO SCH (08:19)
[2019-04-29] MEDS: POLYETHYLENE GLYCOL 3350 17 GM PACKET PO SCH (08:20)
[2019-04-29 08:21] LABS: PHOSPHORUS 3.9 mg/dL (2.5-4.9)
[2019-04-29] MEDS: COLD CREAM, SKIN EMOLLIENT 170 GM JAR TP SCH (08:24)
[2019-04-29] MEDS: APIXABAN 5 MG TABLET PO SCH (08:25)
[2019-04-29 15:46] LABS: GLUCOMETER DEV NAME(LOC) 2WR.1C; GLUCOSE,POINT OF CARE 94 MG/DL (70-110)
== END 2019-04-29 11:30 | disposition home or self-care (01) | DRG 871 ==
LOC: 2WR 15:33
PROVIDERS: ADMIT Physical Medicine & Rehabilitation; ATTEND Physical Medicine & Rehabilitation
DX: A40.9 Streptococcal sepsis, unspecified (principal); J96.00 Acute respiratory failure, unspecified whether with hypoxia or hypercapnia; N17.0 Acute kidney failure with tubular necrosis; K66.1 Hemoperitoneum; R57.8 Other shock; G93.41 Metabolic encephalopathy; I13.0 Hypertensive heart and chronic kidney disease with heart failure and stage 1 through stage 4 chronic kidney disease, or unspecified chronic kidney disease; I48.20 Chronic atrial fibrillation, unspecified; L03.116 Cellulitis of left lower limb; N18.4 Chronic kidney disease, stage 4 (severe); E87.0 Hyperosmolality and hypernatremia; I50.42 Chronic combined systolic (congestive) and diastolic (congestive) heart failure; I82.4Z3 Acute embolism and thrombosis of unspecified deep veins of distal lower extremity, bilateral; E03.9 Hypothyroidism, unspecified; E78.5 Hyperlipidemia, unspecified; E66.01 Morbid (severe) obesity due to excess calories; D50.0 Iron deficiency anemia secondary to blood loss (chronic); B95.0 Streptococcus, group A, as the cause of diseases classified elsewhere; M17.10 Unilateral primary osteoarthritis, unspecified knee; D63.8 Anemia in other chronic diseases classified elsewhere; E83.42 Hypomagnesemia; F32.9 Major depressive disorder, single episode, unspecified; F41.9 Anxiety disorder, unspecified; G47.33 Obstructive sleep apnea (adult) (pediatric); M10.9 Gout, unspecified; M19.90 Unspecified osteoarthritis, unspecified site; M65.9 Synovitis and tenosynovitis, unspecified; R13.10 Dysphagia, unspecified; Z96.641 Presence of right artificial hip joint; Z79.01 Long term (current) use of anticoagulants; Z83.3 Family history of diabetes mellitus; Z79.82 Long term (current) use of aspirin; Z79.899 Other long term (current) drug therapy
CPT/HCPCS: 73721; 76881; 77002; 82570; 83540; 83550; 83735; 84100; 84145; 84156; 84550; 86140; 87081; 87086; 90732; 92507; 92508; 92523; 93970; 94640; 94660; 97110; 97112; 97116; 97150; 97163; 97167; 97530; 97535; 99366; J0885; J1650; J3475; J7060; Q0162

== ENCOUNTER → 2019-05-06 | Outpatient (CLI) | payer OTHER ==
[~2019-05-06] MED LIST changes: -ACET-2247 PO; +ALLO100T PO; -AMLO2.5T4 PO; +APIX5TAB PO; +ASCO500 PO; -AUD NEB; -BISA10SU11 PR; -CLON0.1T2 PO; -DIPH25 PO; +FURO40 PO; -FURO40TA5 PO; +HYDR-2924 PO; -HYDR-4061 PO; -HYDR-4174 PO; -HYDR20I IVP; -HYPR15DR23 OU; -IPRNEB IH; +LEVO100 PO; -LEVO50 PO; -LOSA50TA64 PO; +MAGOX PO; -MORP2CAR IVP; +MULT-248 PO; -ONDA-104 PO; -WARF5 PO; -ZOLP5 PO; -[UNRECOGNIZED DRUG - CODE] IV
[2019-05-06 15:52] LABS: APPEARANCE,URINE CLOUDY (CLEAR); BILIRUBIN,URINE NEGATIVE (NEGATIVE); GLUCOSE, URINE (UA) NEGATIVE (NEGATIVE); KETONES,URINE NEGATIVE (NEGATIVE); LEUKOCYTE ESTERASE ,URINE SMALL (NEGATIVE); NITRATE,URINE POSITIVE (NEGATIVE); OCCULT BLOOD,URINE NEGATIVE (NEGATIVE); PROTEIN,URINE TRACE (NEGATIVE); UROBILINOGEN,URINE 0.2 mg/dL (<=1.0)
[2019-05-06 16:02] LABS: RBC,URINE None Seen /HPF (0-2)
[2019-05-06 16:02] LABS: HEMOGLOBIN A1C 5.2 % (4.5-6.2)
[2019-05-06 16:03] LABS: BACTERIA,URINE Many /HPF (None Seen); SQUAMOUS EPITHELIAL CELL,UR Few /LPF (None Seen); WBC,URINE 26-50 /HPF (0-5)
[2019-05-06 16:11] LABS: ALBUMIN 3.3 g/dL (3.4-5.0); BILIRUBIN,TOTAL 0.3 mg/dL (0.1-1.0); CALCIUM, TOTAL 8.4 mg/dL (8.8-10.5); CHOL/HDL RATIO 2.7 (4.2-7.3); CREATININE 1.51 mg/dL (0.60-1.30); THYROID STIMULATING HORMONE 6.28 uIU/mL (0.36-3.74)
[2019-05-06 16:13] LABS: BASOPHILS % (AUTO) 0.5 % (0.0-2.0); EOSINOPHILS % (AUTO) 1.8 % (1.0-6.0); HEMATOCRIT 38.4 % (41-53); HEMOGLOBIN 12.1 g/dL (13.5-17.5); LYMPHOCYTES # (AUTO) 2.5 K/uL (1.0-4.8); LYMPHOCYTES % (AUTO) 30.2 % (22.0-44.0); MEAN CORPUSCULAR HEMOGLOBIN 29.4 pg (26.0-34.0); MEAN CORPUSCULAR HGB CONC 31.4 G/dL (31.0-37.0); MEAN CORPUSCULAR VOLUME 94 fL (80-100); MONOCYTES # (AUTO) 0.9 K/uL (0.1-1.0); MONOCYTES % (AUTO) 10.7 % (2.0-9.0); NEUTROPHILS # (AUTO) 4.7 K/uL (1.8-7.7); NEUTROPHILS % (AUTO) 56.8 % (40.0-70.0); PLATELET COUNT (AUTO) 414 K/uL (150-450); RED BLOOD CELL COUNT(AUTO) 4.11 MIL/uL (4.50-5.90); RED CELL DISTRIBUTION WIDTH 17.9 % (11.5-14.5)
== END | disposition home or self-care (01) ==
LOC: LABPV 13:09
PROVIDERS: ATTEND Internal Medicine
DX: I11.0 Hypertensive heart disease with heart failure (principal); I50.22 Chronic systolic (congestive) heart failure; I48.11 Longstanding persistent atrial fibrillation; E78.5 Hyperlipidemia, unspecified; E66.9 Obesity, unspecified; D68.69 Other thrombophilia; Z79.01 Long term (current) use of anticoagulants
CPT/HCPCS: 82043; 82570; 83036; 84443; 87086

== ENCOUNTER → 2019-05-26 | Outpatient (CLI) | payer OTHER ==
[~2019-05-26] MED LIST changes: -AMIO200T44 PO; +AMIO200T67 PO; +ASPI-728 PO; -ASPI81 PO
== END | disposition home or self-care (01) ==
LOC: RADPV 10:39
PROVIDERS: ATTEND Internal Medicine
DX: I82.552 Chronic embolism and thrombosis of left peroneal vein (principal); I73.9 Peripheral vascular disease, unspecified
CPT/HCPCS: 93970

== ENCOUNTER → 2020-01-01 | Outpatient (CLI) | payer OTHER ==
[~2020-01-01] MED LIST changes: +ALLO-44 PO; -ALLO100T PO; -AMIO200T67 PO; +AMIO200T68 PO; +LEVO50 PO
[2020-01-01 13:00] LABS: BASOPHILS % (AUTO) 0.2 % (0.0-2.0); EOSINOPHILS % (AUTO) 1.3 % (1.0-6.0); HEMATOCRIT 47.5 % (41-53); HEMOGLOBIN 15.2 g/dL (13.5-17.5); LYMPHOCYTES # (AUTO) 2.3 K/uL (1.0-4.8); LYMPHOCYTES % (AUTO) 30.7 % (22.0-44.0); MEAN CORPUSCULAR HEMOGLOBIN 29.6 pg (26.0-34.0); MEAN CORPUSCULAR VOLUME 93 fL (80-100); MONOCYTES # (AUTO) 0.9 K/uL (0.1-1.0); MONOCYTES % (AUTO) 11.8 % (2.0-9.0); NEUTROPHILS # (AUTO) 4.2 K/uL (1.8-7.7); RED BLOOD CELL COUNT(AUTO) 5.14 MIL/uL (4.50-5.90); RED CELL DISTRIBUTION WIDTH 14.7 % (11.5-14.5)
[2020-01-01 13:13] LABS: APPEARANCE,URINE CLEAR (CLEAR); BILIRUBIN,URINE NEGATIVE (NEGATIVE); GLUCOSE, URINE (UA) NEGATIVE (NEGATIVE); KETONES,URINE NEGATIVE (NEGATIVE); LEUKOCYTE ESTERASE ,URINE NEGATIVE (NEGATIVE); NITRATE,URINE NEGATIVE (NEGATIVE); OCCULT BLOOD,URINE NEGATIVE (NEGATIVE); PH,URINE 6.5 (5.0-8.0); PROTEIN,URINE NEGATIVE (NEGATIVE); UROBILINOGEN,URINE 0.2 mg/dL (<=1.0)
[2020-01-01 13:16] LABS: ALBUMIN 3.9 g/dL (3.4-5.0); BILIRUBIN,TOTAL 0.6 mg/dL (0.1-1.0); CHOL/HDL RATIO 2.6 (4.2-7.3); CREATININE 1.47 mg/dL (0.60-1.30); POTASSIUM 4.1 mmol/L (3.5-5.1); THYROID STIMULATING HORMONE 4.2 uIU/mL (0.36-3.74); TOTAL PROTEIN, SERUM 8.1 g/dL (6.4-8.2)
[2020-01-01 13:28] LABS: URIC ACID 7.9 mg/dL (2.6-7.2)
[2020-01-01 14:32] LABS: PLATELET COUNT (AUTO) 143 K/uL (150-450)
== END | disposition home or self-care (01) ==
LOC: LABPV 10:02
PROVIDERS: ATTEND Internal Medicine
DX: I11.0 Hypertensive heart disease with heart failure (principal); I50.22 Chronic systolic (congestive) heart failure; M10.9 Gout, unspecified; E66.9 Obesity, unspecified; E78.5 Hyperlipidemia, unspecified
CPT/HCPCS: 84443; 84550

== ENCOUNTER 2020-01-03 18:13 | Emergency (ER) | payer OTHER ==
[~2020-01-03] VITALS: Ht 172.7 cm; Wt 97.7 kg
[~2020-01-03 18:13] MED LIST changes: -LEVO50 PO
[2020-01-03] MEDS ORDERED: LEVO50 PO (18:23)
[2020-01-03 18:24] VITALS: BP 146/105
== END 2020-01-03 20:05 | disposition left against medical advice (07) ==
LOC: EMS 18:18
DX: R51 Headache (principal); Z53.21 Procedure and treatment not carried out due to patient leaving prior to being seen by health care provider

== ENCOUNTER 2020-01-04 14:47 | Emergency (ER) | payer OTHER ==
[~2020-01-04] VITALS: Ht 172.7 cm; Wt 98.6 kg
[~2020-01-04 14:47] MED LIST changes: +LEVO50 PO
[2020-01-04 16:31] VITALS: BP 128/89
== END 2020-01-04 16:49 | disposition home or self-care (01) ==
LOC: EMS 14:49
DX: S00.03XA Contusion of scalp, initial encounter (principal); Y04.0XXA Assault by unarmed brawl or fight, initial encounter; Y93.89 Activity, other specified; Y92.89 Other specified places as the place of occurrence of the external cause; Y99.8 Other external cause status
CPT/HCPCS: 70450

== ENCOUNTER 2020-01-06 13:03 | Emergency (ER) | payer OTHER ==
[~2020-01-06] VITALS: Ht 170.2 cm; Wt 95.5 kg
[~2020-01-06 13:03] MED LIST changes: -ALLO-44 PO; -APIX5TAB PO; -ASCO500 PO; -HYDR-2924 PO; -LACT1CAP62 PO; -LEVO100 PO
[2020-01-06] MEDS ORDERED: ATOR40TA28 PO (13:44)
[2020-01-06] MEDS ORDERED: AMLO-258 PO (13:44)
[2020-01-06 16:44] LABS: BASOPHILS % (AUTO) 0.3 % (0.0-2.0); EOSINOPHILS % (AUTO) 1.1 % (1.0-6.0); HEMATOCRIT 40.3 % (41-53); HEMOGLOBIN 13.2 g/dL (13.5-17.5); LYMPHOCYTES # (AUTO) 1.7 K/uL (1.0-4.8); LYMPHOCYTES % (AUTO) 29.4 % (22.0-44.0); MEAN CORPUSCULAR HEMOGLOBIN 30.3 pg (26.0-34.0); MEAN CORPUSCULAR HGB CONC 32.8 G/dL (31.0-37.0); MEAN CORPUSCULAR VOLUME 92 fL (80-100); MONOCYTES # (AUTO) 0.6 K/uL (0.1-1.0); MONOCYTES % (AUTO) 9.7 % (2.0-9.0); NEUTROPHILS # (AUTO) 3.5 K/uL (1.8-7.7); NEUTROPHILS % (AUTO) 59.5 % (40.0-70.0); PLATELET COUNT (AUTO) 228 K/uL (150-450); RED BLOOD CELL COUNT(AUTO) 4.36 MIL/uL (4.50-5.90); RED CELL DISTRIBUTION WIDTH 14.9 % (11.5-14.5)
[2020-01-06 17:01] LABS: PROTHROMBIN TIME 10.2 SEC (9.4-11.6)
[2020-01-06 17:06] LABS: CALCIUM, TOTAL 8.5 mg/dL (8.8-10.5); CREATININE 1.45 mg/dL (0.60-1.30)
[2020-01-06 17:33] LABS: ALBUMIN 3.6 g/dL (3.4-5.0); BILIRUBIN,TOTAL 0.4 mg/dL (0.1-1.0); TOTAL PROTEIN, SERUM 7.3 g/dL (6.4-8.2)
[2020-01-06 18:45] VITALS: BP 137/82
== END 2020-01-06 19:00 | disposition home or self-care (01) ==
LOC: EMS 13:06
DX: R42 Dizziness and giddiness (principal); F07.81 Postconcussional syndrome; I11.0 Hypertensive heart disease with heart failure; I50.9 Heart failure, unspecified; E78.00 Pure hypercholesterolemia, unspecified
CPT/HCPCS: 93005; 36415-L1; 36415-TC; 71045-TC

== ENCOUNTER → 2020-05-20 | Outpatient (CLI) | payer OTHER ==
[~2020-05-20] MED LIST changes: -AMIO200T68 PO; +AMLO-258 PO
[2020-05-20 14:03] LABS: BASOPHILS % (AUTO) 0.4 % (0.0-2.0); EOSINOPHILS % (AUTO) 2.8 % (1.0-6.0); HEMATOCRIT 42.5 % (41-53); HEMOGLOBIN 13.8 g/dL (13.5-17.5); LYMPHOCYTES # (AUTO) 1.1 K/uL (1.0-4.8); LYMPHOCYTES % (AUTO) 19.6 % (22.0-44.0); MEAN CORPUSCULAR HEMOGLOBIN 29.5 pg (26.0-34.0); MEAN CORPUSCULAR HGB CONC 32.5 G/dL (31.0-37.0); MEAN CORPUSCULAR VOLUME 91 fL (80-100); MONOCYTES # (AUTO) 0.7 K/uL (0.1-1.0); MONOCYTES % (AUTO) 13.3 % (2.0-9.0); NEUTROPHILS # (AUTO) 3.6 K/uL (1.8-7.7); NEUTROPHILS % (AUTO) 63.9 % (40.0-70.0); PLATELET COUNT (AUTO) 208 K/uL (150-450); RED BLOOD CELL COUNT(AUTO) 4.68 MIL/uL (4.50-5.90); RED CELL DISTRIBUTION WIDTH 16.1 % (11.5-14.5)
[2020-05-20 14:29] LABS: ALANINE AMINOTRANSFERASE 26 U/L (12-78); ALBUMIN 3.5 g/dL (3.4-5.0); ALKALINE PHOSPHATASE 83 U/L (46-116); ANION GAP 10 mmol/L (8-16); ASPARTATE AMINOTRANSFERASE 15 U/L (15-37); BILIRUBIN,TOTAL 0.6 mg/dL (0.1-1.0); CALCIUM, TOTAL 8.2 mg/dL (8.8-10.5); CARBON DIOXIDE 28 mmol/L (22-29); CHLORIDE 103 mmol/L (98-107); CHOL/HDL RATIO 3.1 (4.2-7.3); CHOLESTEROL 137 mg/dL (131-200); CREATININE 1.34 mg/dL (0.60-1.30); GLOMERULAR FILTR. RATE CALC > 60 mL/min (>60); GLUCOSE,RANDOM 92 mg/dL (70-110); HDL CHOLESTEROL 44 mg/dL (40-60); LDL CHOL (CALC.) 66 mg/dL (0-130); POTASSIUM 3.6 mmol/L (3.5-5.1); SODIUM SERUM 141 mmol/L (136-145); THYROID STIMULATING HORMONE 9.98 uIU/mL (0.36-3.74); TOTAL PROTEIN, SERUM 7.4 g/dL (6.4-8.2); TRIGLYCERIDES 137 mg/dL (15-150); UREA NITROGEN, BLOOD 12 mg/dL (7-18)
[2020-05-20 14:41] LABS: URIC ACID 8.2 mg/dL (2.6-7.2)
[2020-05-20 14:59] LABS: APPEARANCE,URINE CLEAR (CLEAR); BILIRUBIN,URINE NEGATIVE (NEGATIVE); GLUCOSE, URINE (UA) NEGATIVE (NEGATIVE); KETONES,URINE NEGATIVE (NEGATIVE); LEUKOCYTE ESTERASE ,URINE NEGATIVE (NEGATIVE); NITRATE,URINE NEGATIVE (NEGATIVE); OCCULT BLOOD,URINE NEGATIVE (NEGATIVE); PH,URINE 6.5 (5.0-8.0); PROTEIN,URINE POS 1+ (NEGATIVE); UROBILINOGEN,URINE 0.2 mg/dL (<=1.0)
[2020-05-20 15:20] LABS: BACTERIA,URINE None Seen /HPF (None Seen); RBC,URINE None Seen /HPF (0-2); SQUAMOUS EPITHELIAL CELL,UR Few /LPF (None Seen); WBC,URINE 0-2 /HPF (0-5)
== END | disposition home or self-care (01) ==
LOC: LABMN 13:15
PROVIDERS: ATTEND Internal Medicine
DX: I10 Essential (primary) hypertension (principal); E78.5 Hyperlipidemia, unspecified; D68.69 Other thrombophilia; M10.9 Gout, unspecified; E66.9 Obesity, unspecified
CPT/HCPCS: 84443; 84550

== ENCOUNTER → 2020-09-30 | Outpatient (CLI) | payer OTHER ==
[~2020-09-30] MED LIST changes: +ASPI-1450 PO; -ASPI-728 PO; +MAGN400T7 PO; -MAGOX PO
[2020-09-30 10:04] LABS: BASOPHILS % (AUTO) 0.4 % (0.0-2.0); HEMATOCRIT 48.8 % (41-53); HEMOGLOBIN 15.7 g/dL (13.5-17.5); LYMPHOCYTES # (AUTO) 1.4 K/uL (1.0-4.8); LYMPHOCYTES % (AUTO) 22.1 % (22.0-44.0); MEAN CORPUSCULAR HEMOGLOBIN 29.2 pg (26.0-34.0); MEAN CORPUSCULAR HGB CONC 32.3 G/dL (31.0-37.0); MEAN CORPUSCULAR VOLUME 91 fL (80-100); MONOCYTES # (AUTO) 0.6 K/uL (0.1-1.0); MONOCYTES % (AUTO) 10.3 % (2.0-9.0); NEUTROPHILS # (AUTO) 4.1 K/uL (1.8-7.7); NEUTROPHILS % (AUTO) 66.2 % (40.0-70.0); PLATELET COUNT (AUTO) 192 K/uL (150-450); RED BLOOD CELL COUNT(AUTO) 5.38 MIL/uL (4.50-5.90); RED CELL DISTRIBUTION WIDTH 15.5 % (11.5-14.5)
[2020-09-30 10:33] LABS: ALBUMIN 3.5 g/dL (3.4-5.0); BILIRUBIN,TOTAL 0.7 mg/dL (0.1-1.0); CALCIUM, TOTAL 8.8 mg/dL (8.8-10.5); CHOL/HDL RATIO 3.3 (4.2-7.3); CREATININE 1.5 mg/dL (0.60-1.30); POTASSIUM 3.9 mmol/L (3.5-5.1); THYROID STIMULATING HORMONE 3.14 uIU/mL (0.36-3.74); TOTAL PROTEIN, SERUM 7.3 g/dL (6.4-8.2)
[2020-09-30 10:37] LABS: PROSTATE SPECIFIC ANTIGEN 1.84 ng/mL (0.00-4.00)
[2020-09-30 12:33] LABS: BILIRUBIN,URINE NEGATIVE (NEGATIVE); GLUCOSE, URINE (UA) NEGATIVE (NEGATIVE); KETONES,URINE TRACE mg/dL (NEGATIVE); LEUKOCYTE ESTERASE ,URINE SMALL (NEGATIVE); NITRATE,URINE NEGATIVE (NEGATIVE); OCCULT BLOOD,URINE NEGATIVE (NEGATIVE); PH,URINE 6.5 (5.0-8.0); PROTEIN,URINE POS 1+ (NEGATIVE)
[2020-09-30 12:41] LABS: APPEARANCE,URINE HAZY (CLEAR)
[2020-09-30 12:48] LABS: RBC,URINE 0-2 /HPF (0-2)
[2020-09-30 12:49] LABS: BACTERIA,URINE Moderate /HPF (None Seen); SQUAMOUS EPITHELIAL CELL,UR Few /LPF (None Seen)
== END | disposition home or self-care (01) ==
LOC: MSR 09:21
PROVIDERS: ATTEND Internal Medicine
DX: Z12.5 Encounter for screening for malignant neoplasm of prostate (principal); Z13.1 Encounter for screening for diabetes mellitus; I11.0 Hypertensive heart disease with heart failure; I50.22 Chronic systolic (congestive) heart failure; E66.9 Obesity, unspecified; M10.9 Gout, unspecified; E78.5 Hyperlipidemia, unspecified; Z79.01 Long term (current) use of anticoagulants
CPT/HCPCS: 71046; 80053; 80061; 81001; 83036; 84153; 84443; 85025; 87086; 36415-L1; 36415-TC

== ENCOUNTER → 2020-12-06 | Outpatient (CLI) | payer OTHER ==
[~2020-12-06] MED LIST changes: +DOCU-270 PO; -DOCU-275 PO
[2020-12-06 09:57] LABS: ANION GAP 4 mmol/L (8-16); CARBON DIOXIDE 32 mmol/L (22-29); CHLORIDE 106 mmol/L (98-107); CREATININE 1.41 mg/dL (0.60-1.30); GLOMERULAR FILTR. RATE CALC > 60 mL/min (>60); GLUCOSE,RANDOM 96 mg/dL (70-110); POTASSIUM 4.7 mmol/L (3.5-5.1); SODIUM SERUM 142 mmol/L (136-145); UREA NITROGEN, BLOOD 21 mg/dL (7-18)
== END | disposition home or self-care (01) ==
LOC: LABMN 07:42
PROVIDERS: ATTEND Internal Medicine
DX: I10 Essential (primary) hypertension (principal); E78.5 Hyperlipidemia, unspecified
CPT/HCPCS: 80048

== ENCOUNTER → 2021-01-06 | Outpatient (CLI) | payer OTHER ==
[2021-01-06 08:56] LABS: ALANINE AMINOTRANSFERASE 24 U/L (12-78); ALBUMIN 3.6 g/dL (3.4-5.0); ALKALINE PHOSPHATASE 85 U/L (46-116); ANION GAP 5 mmol/L (8-16); ASPARTATE AMINOTRANSFERASE 16 U/L (15-37); BILIRUBIN,TOTAL 0.5 mg/dL (0.1-1.0); CALCIUM, TOTAL 8.6 mg/dL (8.8-10.5); CARBON DIOXIDE 34 mmol/L (22-29); CHLORIDE 107 mmol/L (98-107); CREATININE 1.42 mg/dL (0.60-1.30); GLOMERULAR FILTR. RATE CALC > 60 mL/min (>60); GLUCOSE,RANDOM 135 mg/dL (70-110); SODIUM SERUM 146 mmol/L (136-145); TOTAL PROTEIN, SERUM 7.6 g/dL (6.4-8.2); UREA NITROGEN, BLOOD 17 mg/dL (7-18)
== END | disposition home or self-care (01) ==
LOC: LABMN 08:04
PROVIDERS: ATTEND Internal Medicine
DX: D68.69 Other thrombophilia (principal); I10 Essential (primary) hypertension; E78.5 Hyperlipidemia, unspecified
CPT/HCPCS: 80053

== ENCOUNTER → 2021-02-09 | Outpatient (CLI) | payer OTHER ==
[2021-02-09 16:06] LABS: ALBUMIN 3.7 g/dL (3.4-5.0); BILIRUBIN,TOTAL 0.4 mg/dL (0.1-1.0); CALCIUM, TOTAL 8.8 mg/dL (8.8-10.5); CREATININE 1.74 mg/dL (0.60-1.30); POTASSIUM 4.6 mmol/L (3.5-5.1); TOTAL PROTEIN, SERUM 7.9 g/dL (6.4-8.2)
== END | disposition home or self-care (01) ==
LOC: LABMN 15:22
PROVIDERS: ATTEND Internal Medicine
DX: I10 Essential (primary) hypertension (principal); E78.5 Hyperlipidemia, unspecified; R79.89 Other specified abnormal findings of blood chemistry
CPT/HCPCS: 80053

== ENCOUNTER → 2021-03-29 | Outpatient (CLI) | payer OTHER ==
[2021-03-29 15:41] LABS: CALCIUM, TOTAL 8.6 mg/dL (8.8-10.5); CREATININE 1.69 mg/dL (0.60-1.30); POTASSIUM 4.3 mmol/L (3.5-5.1)
== END | disposition home or self-care (01) ==
LOC: LABMN 15:04
PROVIDERS: ATTEND Internal Medicine
DX: I10 Essential (primary) hypertension (principal); E78.5 Hyperlipidemia, unspecified
CPT/HCPCS: 80048

== ENCOUNTER 2021-05-04 07:11 | Inpatient (IN) | payer OTHER ==
[~2021-05-04] VITALS: Ht 170.2 cm; Wt 104.3 kg
[2021-05-04] MEDS ORDERED: DILTIAZEM HCL 5 MG/ML 5 ML VIAL IVP ONE (07:45)
[2021-05-04 07:53] LABS: BASOPHILS % (AUTO) 0.4 % (0.0-2.0); EOSINOPHILS % (AUTO) 0.6 % (1.0-6.0); HEMOGLOBIN 14.7 g/dL (13.5-17.5); LYMPHOCYTES # (AUTO) 1.4 K/uL (1.0-4.8); LYMPHOCYTES % (AUTO) 17.5 % (22.0-44.0); MEAN CORPUSCULAR HEMOGLOBIN 30.7 pg (26.0-34.0); MEAN CORPUSCULAR HGB CONC 34.2 G/dL (31.0-37.0); MEAN CORPUSCULAR VOLUME 90 fL (80-100); MONOCYTES # (AUTO) 0.7 K/uL (0.1-1.0); MONOCYTES % (AUTO) 8.7 % (2.0-9.0); NEUTROPHILS # (AUTO) 5.9 K/uL (1.8-7.7); NEUTROPHILS % (AUTO) 72.8 % (40.0-70.0); PLATELET COUNT (AUTO) 223 K/uL (150-450); RED CELL DISTRIBUTION WIDTH 15.2 % (11.5-14.5)
[2021-05-04 08:02] LABS: CALCIUM, TOTAL 8.7 mg/dL (8.8-10.5); CREATININE 1.51 mg/dL (0.60-1.30); POTASSIUM 4.1 mmol/L (3.5-5.1)
[2021-05-04 08:08] LABS: ALBUMIN 3.7 g/dL (3.4-5.0); BILIRUBIN,TOTAL 0.9 mg/dL (0.1-1.0); TOTAL PROTEIN, SERUM 7.9 g/dL (6.4-8.2)
[2021-05-04] MEDS ORDERED: DILTIAZEM HCL 60 MG TABLET PO ONE (08:30)
[2021-05-04 09:13] LABS: COVID AG,FIA SOURCE NASOPHARYNGEAL
[2021-05-04] MEDS ORDERED: FUROSEMIDE 40 MG/4 ML VIAL IVP ONE (10:15)
[2021-05-04] MEDS ORDERED: ACETAMINOPHEN 325 MG TABLET PO PRN (11:00)
[2021-05-04] MEDS ORDERED: ONDANSETRON HCL 4 MG/2 ML VIAL IVP PRN (11:00)
[2021-05-04 11:39] LABS: THYROID STIMULATING HORMONE 5.83 uIU/mL (0.36-3.74)
[2021-05-04] MEDS: APIXABAN 5 MG TABLET PO SCH ×2 (12:02→21:11)
[2021-05-04] MEDS ORDERED: AMIODARONE HCL 150 MG in DEXTROSE 5%-WATER 97 ML IV ONE (13:50)
[2021-05-04] MEDS ORDERED: AMIODARONE HCL 360 MG in DEXTROSE 5%-WATER 242.8 ML IV ONE (14:00)
[2021-05-04] MEDS ORDERED: HEPARIN SODIUM,PORCINE 5,000 UNITS/ML VIAL SQ SCH (16:00)
[2021-05-04] MEDS ORDERED: AMIODARONE HCL 540 MG in DEXTROSE 5%-WATER 239.2 ML IV ONE (20:00)
[2021-05-04] MEDS: FUROSEMIDE 40 MG/4 ML VIAL IVP SCH (21:09)
[2021-05-04] MEDS: METOPROLOL TARTRATE 50 MG TABLET PO SCH (21:11)
[2021-05-04] MEDS: ATORVASTATIN CALCIUM 40 MG TABLET PO SCH (21:11)
[2021-05-04] MEDS: DOCUSATE SODIUM 100 MG CAPSULE PO SCH (21:11)
[2021-05-04 22:25] VITALS: BP 140/72
[2021-05-04] MEDS ORDERED: FUROSEMIDE 20 MG/2 ML VIAL IVP ONE (23:30)
[2021-05-05] VITALS (7 sets, daily range): BP systolic 122–155; BP diastolic 55–87
[2021-05-05 04:40] LABS: ABG BASE EXCESS -4.7 mmol/L (-2.0-3.0); ABG CARBOXYHEMOGLOBIN 0.3 % (0.0-1.5); ABG HCO3 20.9 mmol/L (22.0-26.0); ABG METHEMOGLOBIN 0.1 % (0.0-1.5); ABG OXYGEN SATURATION 91.2 % (95.0-98.0); ABG OXYHEMOGLOBIN 90.8 % (94.0-100.0); ABG PCO2 39 mmHg (35-45); ABG TOTAL HEMOGLOBIN 15.7 G/dL (12.0-18.0); O2 DEVICE,BLOOD GAS CANNULA (ROOM AIR); PO2, ARTERIAL BG 67.2 mmHg (79.0-87.0); SITE, BLOOD GAS LFT RADIAL; SOURCE, BLOOD GAS ARTERIAL; TEMPERATURE, FAHRENHEIT, BG 98.6 FAHREN (96.0-98.6)
[2021-05-05] MEDS ORDERED: IPRATROPIUM BROMIDE 0.5 MG/2.5 ML NEB SOLUTION NEB ONE ×2 (04:45→04:48)
[2021-05-05] MEDS ORDERED: ALBUTEROL SULFATE 2.5 MG/0.5 ML NEB SOLUTION NEB ONE ×2 (04:45→04:48)
[2021-05-05] MEDS ORDERED: AZITHROMYCIN 500 MG TABLET PO SCH (09:00)
[2021-05-05] MEDS: FAMOTIDINE 20 MG TABLET PO SCH (09:28)
[2021-05-05] MEDS: APIXABAN 5 MG TABLET PO SCH ×2 (09:28→20:47)
[2021-05-05] MEDS: METOPROLOL TARTRATE 50 MG TABLET PO SCH ×2 (09:28→20:47)
[2021-05-05] MEDS: DOCUSATE SODIUM 100 MG CAPSULE PO SCH ×2 (09:28→20:47)
[2021-05-05 09:37] LABS: COVID AG,FIA SOURCE NASOPHARYNGEAL
[2021-05-05 10:20] LABS: CALCIUM, TOTAL 9.1 mg/dL (8.8-10.5); CREATININE 1.99 mg/dL (0.60-1.30); POTASSIUM 4.6 mmol/L (3.5-5.1)
[2021-05-05] MEDS ORDERED: SODIUM CHLORIDE 0.9% 250 ML IV ONE (10:47)
[2021-05-05] MEDS: CefTRIAXone 1 GM/DEXTROSE 50 ML IV SCH (10:50)
[2021-05-05] MEDS: FUROSEMIDE 40 MG/4 ML VIAL IVP SCH ×2 (10:51→20:47)
[2021-05-05] MEDS: AMIODARONE HCL 750 MG in DEXTROSE 5%-WATER 485 ML IV SCH (14:44)
[2021-05-05] MEDS: ATORVASTATIN CALCIUM 40 MG TABLET PO SCH (20:47)
[2021-05-06] VITALS (7 sets, daily range): BP systolic 108–159; BP diastolic 57–85
[2021-05-06] MEDS: ALBUTEROL SULFATE HFA 90 MCG/PUFF 8 GM INHALER IH PRN (01:44)
[2021-05-06] MEDS: CefTRIAXone 1 GM/DEXTROSE 50 ML IV SCH (05:43)
[2021-05-06 06:14] LABS: BASOPHILS % (AUTO) 0.3 % (0.0-2.0); EOSINOPHILS % (AUTO) 0.2 % (1.0-6.0); HEMATOCRIT 44.3 % (41-53); HEMOGLOBIN 14.7 g/dL (13.5-17.5); LYMPHOCYTES % (AUTO) 16.6 % (22.0-44.0); MEAN CORPUSCULAR HEMOGLOBIN 30.7 pg (26.0-34.0); MEAN CORPUSCULAR HGB CONC 33.3 G/dL (31.0-37.0); MEAN CORPUSCULAR VOLUME 92 fL (80-100); MONOCYTES # (AUTO) 1.1 K/uL (0.1-1.0); MONOCYTES % (AUTO) 9.6 % (2.0-9.0); NEUTROPHILS # (AUTO) 8.7 K/uL (1.8-7.7); NEUTROPHILS % (AUTO) 73.3 % (40.0-70.0); PLATELET COUNT (AUTO) 153 K/uL (150-450); RED CELL DISTRIBUTION WIDTH 15.4 % (11.5-14.5)
[2021-05-06 06:38] LABS: ALBUMIN 3.2 g/dL (3.4-5.0); BILIRUBIN,TOTAL 1.2 mg/dL (0.1-1.0); CALCIUM, TOTAL 8.9 mg/dL (8.8-10.5); CREATININE 2.06 mg/dL (0.60-1.30); POTASSIUM 4.3 mmol/L (3.5-5.1); TOTAL PROTEIN, SERUM 7.7 g/dL (6.4-8.2)
[2021-05-06 07:00] LABS: PLATELET MORPHOLOGY COMMENT GIANT PLTS PRESENT
[2021-05-06] MEDS: METOPROLOL TARTRATE 50 MG TABLET PO SCH ×2 (07:55→21:00)
[2021-05-06] MEDS: FUROSEMIDE 40 MG/4 ML VIAL IVP SCH (07:55)
[2021-05-06] MEDS: AZITHROMYCIN 250 MG TABLET PO SCH (07:55)
[2021-05-06] MEDS: DOCUSATE SODIUM 100 MG CAPSULE PO SCH ×2 (07:56→21:00)
[2021-05-06] MEDS: FAMOTIDINE 20 MG TABLET PO SCH (07:56)
[2021-05-06] MEDS: APIXABAN 5 MG TABLET PO SCH ×2 (07:56→21:06)
[2021-05-06] MEDS ORDERED: BENZOCAINE 20% 50 MCG/SPRAY 57 GM ONE (12:49)
[2021-05-06] MEDS ORDERED: MIDAZOLAM HCL 2 MG/2 ML VIAL ONE (12:49)
[2021-05-06] MEDS ORDERED: FentaNYL CITRATE PF 100 MCG/2 ML VIAL ONE (12:49)
[2021-05-06] MEDS ORDERED: BENZOCAINE 20% 50 MCG/SPRAY 57 GM TP ONE (13:15)
[2021-05-06] MEDS: AMIODARONE HCL 750 MG in DEXTROSE 5%-WATER 485 ML IV SCH (14:26)
[2021-05-06] MEDS ORDERED: LEVO100 PO (16:54)
[2021-05-06] MEDS: ATORVASTATIN CALCIUM 40 MG TABLET PO SCH (21:06)
[2021-05-07 00:08] VITALS: BP 116/54
[2021-05-07 04:40] VITALS: BP 126/67
[2021-05-07] MEDS: CefTRIAXone 1 GM/DEXTROSE 50 ML IV SCH (05:33)
[2021-05-07 08:00] VITALS: BP 155/68
[2021-05-07] MEDS: APIXABAN 5 MG TABLET PO SCH ×2 (08:40→20:18)
[2021-05-07] MEDS: AZITHROMYCIN 250 MG TABLET PO SCH (08:40)
[2021-05-07] MEDS: METOPROLOL TARTRATE 50 MG TABLET PO SCH ×2 (08:40→20:18)
[2021-05-07] MEDS: FAMOTIDINE 20 MG TABLET PO SCH (08:40)
[2021-05-07] MEDS: DOCUSATE SODIUM 100 MG CAPSULE PO SCH ×2 (08:41→20:18)
[2021-05-07] MEDS ORDERED: FUROSEMIDE 40 MG/4 ML VIAL IVP SCH (09:00)
[2021-05-07 11:30] VITALS: BP 125/74
[2021-05-07 11:41] LABS: CALCIUM, TOTAL 8.8 mg/dL (8.8-10.5); CREATININE 2.23 mg/dL (0.60-1.30); POTASSIUM 4.4 mmol/L (3.5-5.1)
[2021-05-07] MEDS: AMIODARONE HCL 750 MG in DEXTROSE 5%-WATER 485 ML IV SCH (15:23)
[2021-05-07 16:00] VITALS: BP 135/87
[2021-05-07 19:52] VITALS: BP 132/72
[2021-05-07] MEDS: FUROSEMIDE 40 MG/4 ML VIAL IVP SCH (20:18)
[2021-05-07] MEDS: ATORVASTATIN CALCIUM 40 MG TABLET PO SCH (20:18)
[2021-05-07] MEDS ORDERED: FAMOTIDINE 20 MG TABLET PO SCH (21:00)
[2021-05-08 00:15] VITALS: BP 116/64
[2021-05-08] MEDS: CefTRIAXone 1 GM/DEXTROSE 50 ML IV SCH (04:49)
[2021-05-08 05:13] VITALS: BP 136/70
[2021-05-08] MEDS: FUROSEMIDE 40 MG/4 ML VIAL IVP SCH (07:55)
[2021-05-08] MEDS: DOCUSATE SODIUM 100 MG CAPSULE PO SCH ×2 (07:55→20:40)
[2021-05-08] MEDS: METOPROLOL TARTRATE 50 MG TABLET PO SCH ×2 (07:56→20:40)
[2021-05-08] MEDS: AZITHROMYCIN 250 MG TABLET PO SCH (07:56)
[2021-05-08] MEDS: APIXABAN 5 MG TABLET PO SCH (07:56)
[2021-05-08 08:51] LABS: CALCIUM, TOTAL 8.3 mg/dL (8.8-10.5); CREATININE 1.88 mg/dL (0.60-1.30); POTASSIUM 3.7 mmol/L (3.5-5.1)
[2021-05-08] MEDS ORDERED: FAMOTIDINE 20 MG TABLET PO SCH (09:00)
[2021-05-08 09:14] VITALS: BP 121/67
[2021-05-08] MEDS ORDERED: LORazepam 0.5 MG TABLET PO PRN (10:00)
[2021-05-08 12:57] VITALS: BP 135/79
[2021-05-08 15:44] LABS: CREATININE,URINE RANDOM 100.3 mg/dL (30.0-125.0); PROTEIN,URINE RANDOM 20 mg/dL (0-11.9); UREA NITROGEN,URINE RANDOM 771 mg/dL (350-1000)
[2021-05-08 15:47] LABS: APPEARANCE,URINE CLEAR (CLEAR); BILIRUBIN,URINE NEGATIVE (NEGATIVE); GLUCOSE, URINE (UA) NEGATIVE (NEGATIVE); KETONES,URINE NEGATIVE (NEGATIVE); LEUKOCYTE ESTERASE ,URINE NEGATIVE (NEGATIVE); NITRATE,URINE NEGATIVE (NEGATIVE); OCCULT BLOOD,URINE NEGATIVE (NEGATIVE); PH,URINE 5.5 (5.0-8.0); PROTEIN,URINE NEGATIVE (NEGATIVE); UROBILINOGEN,URINE 0.2 mg/dL (<=1.0)
[2021-05-08 16:16] LABS: SODIUM,URINE RANDOM < 5 mmol/l (20-110)
[2021-05-08 16:31] VITALS: BP 140/76
[2021-05-08 20:23] VITALS: BP 144/84
[2021-05-08] MEDS: ATORVASTATIN CALCIUM 40 MG TABLET PO SCH (20:40)
[2021-05-08] MEDS: AMIODARONE HCL 200 MG TABLET PO SCH (20:40)
[2021-05-08] MEDS ORDERED: FUROSEMIDE 20 MG TABLET PO SCH (21:00)
[2021-05-08] MEDS ORDERED: HEPARIN SODIUM,PORCINE 5,000 UNITS/ML VIAL IVP PRN ×2 (22:15)
[2021-05-08] MEDS ORDERED: HEPARIN SODIUM,PORCINE 5,000 UNITS/ML VIAL IVP ONE (22:15)
[2021-05-08] MEDS ORDERED: HEPARIN SODIUM 25000 UNITS/D5W 250 ML IV PRN (22:15)
[2021-05-08 22:50] LABS: BASOPHILS % (AUTO) 0.7 % (0.0-2.0); EOSINOPHILS % (AUTO) 0.4 % (1.0-6.0); HEMATOCRIT 41.6 % (41-53); LYMPHOCYTES # (AUTO) 1.6 K/uL (1.0-4.8); MEAN CORPUSCULAR HEMOGLOBIN 30.5 pg (26.0-34.0); MEAN CORPUSCULAR HGB CONC 33.6 G/dL (31.0-37.0); MEAN CORPUSCULAR VOLUME 91 fL (80-100); MONOCYTES # (AUTO) 1.2 K/uL (0.1-1.0); MONOCYTES % (AUTO) 10.9 % (2.0-9.0); NEUTROPHILS # (AUTO) 7.8 K/uL (1.8-7.7); PLATELET COUNT (AUTO) 210 K/uL (150-450); RED BLOOD CELL COUNT(AUTO) 4.59 MIL/uL (4.50-5.90)
[2021-05-08 23:03] LABS: INR 1.2 (0.9-1.1); PROTHROMBIN TIME 12.4 SEC (9.4-11.6)
[2021-05-09] VITALS (17 sets, daily range): BP systolic 112–179; BP diastolic 51–99
[2021-05-09] MEDS: CefTRIAXone 1 GM/DEXTROSE 50 ML IV SCH ×2 (05:44→09:30)
[2021-05-09] MEDS: METOPROLOL TARTRATE 50 MG TABLET PO SCH ×2 (08:40→20:33)
[2021-05-09] MEDS: AMIODARONE HCL 200 MG TABLET PO SCH ×2 (08:40→20:33)
[2021-05-09] MEDS: DOCUSATE SODIUM 100 MG CAPSULE PO SCH ×2 (08:40→20:33)
[2021-05-09 10:07] LABS: BASOPHILS % (AUTO) 0.7 % (0.0-2.0); EOSINOPHILS % (AUTO) 0.5 % (1.0-6.0); LYMPHOCYTES # (AUTO) 1.4 K/uL (1.0-4.8); MONOCYTES # (AUTO) 0.9 K/uL (0.1-1.0)
[2021-05-09 10:12] LABS: HEMATOCRIT 41.1 % (41-53); HEMOGLOBIN 13.9 g/dL (13.5-17.5); LYMPHOCYTES % (AUTO) 13.4 % (22.0-44.0); MEAN CORPUSCULAR HEMOGLOBIN 30.9 pg (26.0-34.0); MEAN CORPUSCULAR HGB CONC 33.9 G/dL (31.0-37.0); MEAN CORPUSCULAR VOLUME 91 fL (80-100); MONOCYTES % (AUTO) 8.1 % (2.0-9.0); NEUTROPHILS # (AUTO) 8.2 K/uL (1.8-7.7); NEUTROPHILS % (AUTO) 77.3 % (40.0-70.0); RED BLOOD CELL COUNT(AUTO) 4.51 MIL/uL (4.50-5.90); RED CELL DISTRIBUTION WIDTH 15.3 % (11.5-14.5)
[2021-05-09 10:13] LABS: PLATELET COUNT (AUTO) 207 K/uL (150-450)
[2021-05-09 10:20] LABS: INR 1.2 (0.9-1.1); PROTHROMBIN TIME 12.2 SEC (9.4-11.6)
[2021-05-09 10:25] LABS: CALCIUM, TOTAL 8.4 mg/dL (8.8-10.5); CREATININE 1.8 mg/dL (0.60-1.30); POTASSIUM 4.1 mmol/L (3.5-5.1)
[2021-05-09] MEDS ORDERED: IOHEXOL 300 MG/ML 100 ML VIAL ONE (12:11)
[2021-05-09] MEDS ORDERED: HEPARIN SODIUM 1000 UNITS/NS 1,000 ML ONE (12:11)
[2021-05-09] MEDS ORDERED: LIDOCAINE/PF 1% 30 ML VIAL ONE (12:11)
[2021-05-09] MEDS ORDERED: SODIUM BICARBONATE 50 MEQ/50 ML VIAL ONE (12:11)
[2021-05-09] MEDS ORDERED: IOHEXOL 300 MG/ML 50 ML VIAL ONE (12:11)
[2021-05-09] MEDS ORDERED: IOHEXOL 300 MG/ML 150 ML VIAL ONE (12:11)
[2021-05-09] MEDS ORDERED: IOHEXOL 300 MG/ML 100 ML VIAL IARTER ONE (13:15)
[2021-05-09] MEDS ORDERED: LIDOCAINE 1% 30 ML/SOD BICARB 8.4% 4 ML SQ ONE (13:15)
[2021-05-09] MEDS ORDERED: HEPARIN SODIUM 1000 UNITS/NS 1,000 ML IARTER ONE (13:15)
[2021-05-09] MEDS ORDERED: SODIUM CHLORIDE 0.9% 1,000 ML ONE (15:49)
[2021-05-09] MEDS ORDERED: SODIUM CHLORIDE 0.9% 1,000 ML IV ONE (18:15)
[2021-05-09] MEDS: ATORVASTATIN CALCIUM 40 MG TABLET PO SCH (20:33)
[2021-05-10 05:53] VITALS: BP 132/71
[2021-05-10 07:25] VITALS: BP 122/69
[2021-05-10] MEDS: AMIODARONE HCL 200 MG TABLET PO SCH ×2 (08:51→21:51)
[2021-05-10] MEDS: METOPROLOL TARTRATE 50 MG TABLET PO SCH ×2 (08:51→20:23)
[2021-05-10] MEDS: CefTRIAXone SODIUM 2 GM in DEXTROSE 5%-WATER 50 ML IV SCH (08:52)
[2021-05-10] MEDS: DOCUSATE SODIUM 100 MG CAPSULE PO SCH ×2 (09:00→20:23)
[2021-05-10 09:57] LABS: ALBUMIN 2.9 g/dL (3.4-5.0); BILIRUBIN,TOTAL 0.8 mg/dL (0.1-1.0); CALCIUM, TOTAL 8.7 mg/dL (8.8-10.5); CREATININE 1.88 mg/dL (0.60-1.30); POTASSIUM 4.1 mmol/L (3.5-5.1); TOTAL PROTEIN, SERUM 7.5 g/dL (6.4-8.2)
[2021-05-10] MEDS ORDERED: HEPARIN SODIUM 25000 UNITS/D5W 250 ML IV SCH (10:00)
[2021-05-10 10:06] LABS: BARTONELLA QUINTANA IGG TITER Negative titer (Neg:<1:320); BARTONELLA QUINTANA IGM TITER Negative titer (Neg:<1:100)
[2021-05-10] MEDS ORDERED: HEPARIN SODIUM,PORCINE 5,000 UNITS/ML VIAL IVP PRN (11:00)
[2021-05-10 11:28] LABS: INR 1.1 (0.9-1.1); PROTHROMBIN TIME 11.8 SEC (9.4-11.6)
[2021-05-10] MEDS: FUROSEMIDE 40 MG/4 ML VIAL IVP SCH ×2 (11:34→20:23)
[2021-05-10 11:43] VITALS: BP 143/91
[2021-05-10] MEDS: HEPARIN SODIUM 25000 UNITS/D5W 250 ML IV PRN ×2 (13:36→18:41)
[2021-05-10 13:38] LABS: BASOPHILS % (AUTO) 0.6 % (0.0-2.0); EOSINOPHILS % (AUTO) 0.3 % (1.0-6.0); HEMATOCRIT 42.5 % (41-53); HEMOGLOBIN 14.1 g/dL (13.5-17.5); LYMPHOCYTES # (AUTO) 1.1 K/uL (1.0-4.8); LYMPHOCYTES % (AUTO) 9.4 % (22.0-44.0); MEAN CORPUSCULAR HGB CONC 33.1 G/dL (31.0-37.0); MEAN CORPUSCULAR VOLUME 91 fL (80-100); MONOCYTES # (AUTO) 0.7 K/uL (0.1-1.0); MONOCYTES % (AUTO) 5.8 % (2.0-9.0); NEUTROPHILS # (AUTO) 9.7 K/uL (1.8-7.7); NEUTROPHILS % (AUTO) 83.9 % (40.0-70.0); PLATELET COUNT (AUTO) 189 K/uL (150-450); RED BLOOD CELL COUNT(AUTO) 4.69 MIL/uL (4.50-5.90); RED CELL DISTRIBUTION WIDTH 15.4 % (11.5-14.5)
[2021-05-10 15:47] VITALS: BP 112/64
[2021-05-10 16:06] LABS: S PNEUMO SOURCE Urine; STREP PNEUMONIAE AG URINE Negative (Negative)
[2021-05-10 17:06] LABS: LEGIONELLA PNEUMO AG URINE Negative (Negative)
[2021-05-10] MEDS: HEPARIN SODIUM,PORCINE 5,000 UNITS/ML VIAL IVP PRN (18:36)
[2021-05-10 20:07] VITALS: BP 115/73
[2021-05-10] MEDS: ATORVASTATIN CALCIUM 40 MG TABLET PO SCH (20:26)
[2021-05-10] MEDS: ALBUTEROL SULFATE HFA 90 MCG/PUFF 8 GM INHALER IH PRN (23:21)
[2021-05-11 00:51] VITALS: BP 121/77
[2021-05-11 06:00] VITALS: BP 119/59
[2021-05-11] MEDS: HEPARIN SODIUM 25000 UNITS/D5W 250 ML IV PRN (07:05)
[2021-05-11 07:49] VITALS: BP 110/54
[2021-05-11] MEDS: CefTRIAXone SODIUM 2 GM in DEXTROSE 5%-WATER 50 ML IV SCH (08:12)
[2021-05-11] MEDS: METOPROLOL TARTRATE 50 MG TABLET PO SCH ×2 (08:13→21:26)
[2021-05-11] MEDS: FUROSEMIDE 40 MG/4 ML VIAL IVP SCH ×2 (08:13→21:00)
[2021-05-11] MEDS: DOCUSATE SODIUM 100 MG CAPSULE PO SCH ×2 (08:22→21:00)
[2021-05-11] MEDS: AMIODARONE HCL 200 MG TABLET PO SCH ×2 (08:24→21:26)
[2021-05-11 09:01] LABS: BASOPHILS % (AUTO) 0.9 % (0.0-2.0); EOSINOPHILS % (AUTO) 1.2 % (1.0-6.0); HEMATOCRIT 39.7 % (41-53); HEMOGLOBIN 13.2 g/dL (13.5-17.5); LYMPHOCYTES # (AUTO) 1.8 K/uL (1.0-4.8); LYMPHOCYTES % (AUTO) 18.6 % (22.0-44.0); MEAN CORPUSCULAR HEMOGLOBIN 30.2 pg (26.0-34.0); MEAN CORPUSCULAR HGB CONC 33.3 G/dL (31.0-37.0); MEAN CORPUSCULAR VOLUME 91 fL (80-100); MONOCYTES # (AUTO) 0.7 K/uL (0.1-1.0); MONOCYTES % (AUTO) 7.1 % (2.0-9.0); NEUTROPHILS # (AUTO) 7.1 K/uL (1.8-7.7); NEUTROPHILS % (AUTO) 72.2 % (40.0-70.0); PLATELET COUNT (AUTO) 204 K/uL (150-450); RED BLOOD CELL COUNT(AUTO) 4.37 MIL/uL (4.50-5.90); RED CELL DISTRIBUTION WIDTH 15.7 % (11.5-14.5)
[2021-05-11 09:16] LABS: CALCIUM, TOTAL 8.5 mg/dL (8.8-10.5); CREATININE 2.06 mg/dL (0.60-1.30)
[2021-05-11 11:33] VITALS: BP 121/63
[2021-05-11 14:06] LABS: Q FEVER AB PHASE I Negative (Neg:<1:16)
[2021-05-11 16:04] VITALS: BP 120/60
[2021-05-11 19:49] VITALS: BP 115/81
[2021-05-11] MEDS: ATORVASTATIN CALCIUM 40 MG TABLET PO SCH (21:26)
[2021-05-11] MEDS: ALBUTEROL SULFATE HFA 90 MCG/PUFF 8 GM INHALER IH PRN (22:44)
[2021-05-12] VITALS: BP 139/69
[2021-05-12] MEDS: FUROSEMIDE 40 MG/4 ML VIAL IVP SCH ×3 (00:38→20:01)
[2021-05-12 04:06] VITALS: BP 143/69
[2021-05-12] MEDS: HEPARIN SODIUM 25000 UNITS/D5W 250 ML IV PRN (06:18)
[2021-05-12 08:00] VITALS: BP 124/68
[2021-05-12] MEDS: DOCUSATE SODIUM 100 MG CAPSULE PO SCH ×2 (09:00→19:59)
[2021-05-12 09:18] LABS: CALCIUM, TOTAL 8.8 mg/dL (8.8-10.5); CREATININE 1.97 mg/dL (0.60-1.30); POTASSIUM 3.7 mmol/L (3.5-5.1)
[2021-05-12] MEDS: AMIODARONE HCL 200 MG TABLET PO SCH ×2 (09:54→20:01)
[2021-05-12] MEDS: METOPROLOL TARTRATE 50 MG TABLET PO SCH ×2 (09:54→21:28)
[2021-05-12] MEDS: CefTRIAXone SODIUM 2 GM in DEXTROSE 5%-WATER 50 ML IV SCH (09:59)
[2021-05-12 11:13] VITALS: BP 126/60
[2021-05-12] MEDS: HEPARIN SODIUM,PORCINE 5,000 UNITS/ML VIAL IVP PRN (11:34)
[2021-05-12] MEDS: ALBUTEROL SULFATE HFA 90 MCG/PUFF 8 GM INHALER IH PRN ×2 (12:02→20:13)
[2021-05-12] MEDS ORDERED: 0.9% SODIUM CHLORIDE 5 ML NEB SOLUTION NEB ONE ×2 (16:08→22:22)
[2021-05-12] MEDS: ALBUTEROL SULFATE 2.5 MG/0.5 ML NEB SOLUTION NEB PRN ×2 (16:10→22:31)
[2021-05-12 16:14] VITALS: BP 136/82
[2021-05-12] MEDS: ATORVASTATIN CALCIUM 40 MG TABLET PO SCH (20:00)
[2021-05-12 20:20] VITALS: BP 140/73
[2021-05-13] VITALS (7 sets, daily range): BP systolic 110–139; BP diastolic 6–94
[2021-05-13] MEDS: HEPARIN SODIUM 25000 UNITS/D5W 250 ML IV PRN ×2 (01:37→22:11)
[2021-05-13 08:12] LABS: BASOPHILS % (AUTO) 0.6 % (0.0-2.0); HEMATOCRIT 42.1 % (41-53); LYMPHOCYTES # (AUTO) 1.2 K/uL (1.0-4.8); LYMPHOCYTES % (AUTO) 11.6 % (22.0-44.0); MEAN CORPUSCULAR HEMOGLOBIN 30.3 pg (26.0-34.0); MEAN CORPUSCULAR HGB CONC 33.2 G/dL (31.0-37.0); MEAN CORPUSCULAR VOLUME 91 fL (80-100); MONOCYTES % (AUTO) 9.2 % (2.0-9.0); NEUTROPHILS # (AUTO) 8.1 K/uL (1.8-7.7); NEUTROPHILS % (AUTO) 76.6 % (40.0-70.0); PLATELET COUNT (AUTO) 187 K/uL (150-450); RED BLOOD CELL COUNT(AUTO) 4.61 MIL/uL (4.50-5.90); RED CELL DISTRIBUTION WIDTH 15.6 % (11.5-14.5)
[2021-05-13 08:27] LABS: ALBUMIN 2.8 g/dL (3.4-5.0); BILIRUBIN,TOTAL 0.6 mg/dL (0.1-1.0); CREATININE 2.12 mg/dL (0.60-1.30); POTASSIUM 4.3 mmol/L (3.5-5.1); TOTAL PROTEIN, SERUM 7.3 g/dL (6.4-8.2)
[2021-05-13] MEDS: DOCUSATE SODIUM 100 MG CAPSULE PO SCH ×2 (08:47→21:00)
[2021-05-13] MEDS: FUROSEMIDE 40 MG/4 ML VIAL IVP SCH (08:47)
[2021-05-13] MEDS: METOPROLOL TARTRATE 50 MG TABLET PO SCH ×2 (08:48→21:07)
[2021-05-13] MEDS: AMIODARONE HCL 200 MG TABLET PO SCH ×2 (08:48→21:07)
[2021-05-13] MEDS: CefTRIAXone SODIUM 2 GM in DEXTROSE 5%-WATER 50 ML IV SCH (08:49)
[2021-05-13] MEDS: HEPARIN SODIUM,PORCINE 5,000 UNITS/ML VIAL IVP PRN (18:55)
[2021-05-13] MEDS: FUROSEMIDE 20 MG/2 ML VIAL IVP SCH (21:07)
[2021-05-13] MEDS: ATORVASTATIN CALCIUM 40 MG TABLET PO SCH (21:07)
[2021-05-14] MEDS: ACETAMINOPHEN 325 MG TABLET PO PRN (01:25)
[2021-05-14] MEDS: HEPARIN SODIUM,PORCINE 5,000 UNITS/ML VIAL IVP PRN (01:40)
[2021-05-14 04:11] VITALS: BP 105/56
[2021-05-14 08:05] VITALS: BP 124/85
[2021-05-14] MEDS: DOCUSATE SODIUM 100 MG CAPSULE PO SCH ×2 (09:00→21:00)
[2021-05-14] MEDS: METOPROLOL TARTRATE 50 MG TABLET PO SCH ×2 (09:04→21:14)
[2021-05-14] MEDS: FUROSEMIDE 20 MG/2 ML VIAL IVP SCH ×2 (09:04→21:15)
[2021-05-14] MEDS: AMIODARONE HCL 200 MG TABLET PO SCH ×2 (09:04→21:14)
[2021-05-14 10:05] LABS: ALBUMIN 2.7 g/dL (3.4-5.0); BILIRUBIN,TOTAL 0.8 mg/dL (0.1-1.0); CALCIUM, TOTAL 8.7 mg/dL (8.8-10.5); CREATININE 1.8 mg/dL (0.60-1.30); POTASSIUM 3.9 mmol/L (3.5-5.1)
[2021-05-14] MEDS: HEPARIN SODIUM 25000 UNITS/D5W 250 ML IV PRN (11:06)
[2021-05-14 12:17] VITALS: BP 105/56
[2021-05-14] MEDS: CefTRIAXone SODIUM 2 GM in DEXTROSE 5%-WATER 50 ML IV SCH (12:34)
[2021-05-14 13:40] LABS: BASOPHILS % (AUTO) 0.5 % (0.0-2.0); HEMATOCRIT 37.9 % (41-53); HEMOGLOBIN 12.5 g/dL (13.5-17.5); MEAN CORPUSCULAR HEMOGLOBIN 30.3 pg (26.0-34.0); MEAN CORPUSCULAR HGB CONC 33.1 G/dL (31.0-37.0); MEAN CORPUSCULAR VOLUME 92 fL (80-100); MONOCYTES # (AUTO) 0.9 K/uL (0.1-1.0); MONOCYTES % (AUTO) 7.8 % (2.0-9.0); NEUTROPHILS % (AUTO) 82.7 % (40.0-70.0); PLATELET COUNT (AUTO) 183 K/uL (150-450); RED BLOOD CELL COUNT(AUTO) 4.14 MIL/uL (4.50-5.90); RED CELL DISTRIBUTION WIDTH 16.3 % (11.5-14.5)
[2021-05-14 20:07] VITALS: BP 129/61
[2021-05-14] MEDS: ATORVASTATIN CALCIUM 40 MG TABLET PO SCH (21:14)
[2021-05-15 00:07] VITALS: BP 116/62
[2021-05-15] MEDS: HEPARIN SODIUM 25000 UNITS/D5W 250 ML IV PRN ×2 (02:04→15:17)
[2021-05-15 05:00] VITALS: BP 145/80
[2021-05-15 08:00] VITALS: BP 159/81
[2021-05-15] MEDS: DOCUSATE SODIUM 100 MG CAPSULE PO SCH ×2 (08:26→21:00)
[2021-05-15] MEDS: FUROSEMIDE 20 MG/2 ML VIAL IVP SCH ×2 (08:26→21:39)
[2021-05-15] MEDS: AMIODARONE HCL 200 MG TABLET PO SCH ×2 (08:26→21:35)
[2021-05-15] MEDS: METOPROLOL TARTRATE 50 MG TABLET PO SCH ×2 (08:26→21:35)
[2021-05-15] MEDS: CefTRIAXone SODIUM 2 GM in DEXTROSE 5%-WATER 50 ML IV SCH (08:27)
[2021-05-15] MEDS ORDERED: 0.9% SODIUM CHLORIDE 5 ML NEB SOLUTION NEB ONE (09:14)
[2021-05-15 11:28] VITALS: BP 132/58
[2021-05-15] MEDS: AmLODIPine BESYLATE 5 MG TABLET PO SCH ×2 (11:28→21:41)
[2021-05-15 13:25] LABS: BASOPHILS % (AUTO) 0.1 % (0.0-2.0); HEMATOCRIT 39.9 % (41-53); HEMOGLOBIN 12.9 g/dL (13.5-17.5); LYMPHOCYTES # (AUTO) 0.9 K/uL (1.0-4.8); LYMPHOCYTES % (AUTO) 8.1 % (22.0-44.0); MEAN CORPUSCULAR HEMOGLOBIN 29.6 pg (26.0-34.0); MEAN CORPUSCULAR HGB CONC 32.3 G/dL (31.0-37.0); MEAN CORPUSCULAR VOLUME 92 fL (80-100); MONOCYTES # (AUTO) 0.9 K/uL (0.1-1.0); MONOCYTES % (AUTO) 8.3 % (2.0-9.0); NEUTROPHILS # (AUTO) 9.1 K/uL (1.8-7.7); NEUTROPHILS % (AUTO) 82.5 % (40.0-70.0); PLATELET COUNT (AUTO) 171 K/uL (150-450); RED BLOOD CELL COUNT(AUTO) 4.36 MIL/uL (4.50-5.90)
[2021-05-15 13:33] LABS: ALBUMIN 2.8 g/dL (3.4-5.0); BILIRUBIN,TOTAL 0.5 mg/dL (0.1-1.0); CALCIUM, TOTAL 8.7 mg/dL (8.8-10.5); CREATININE 2.06 mg/dL (0.60-1.30); MAGNESIUM 2.5 mg/dL (1.80-2.40); POTASSIUM 4.1 mmol/L (3.5-5.1); TOTAL PROTEIN, SERUM 7.2 g/dL (6.4-8.2)
[2021-05-15] MEDS: HEPARIN SODIUM,PORCINE 5,000 UNITS/ML VIAL IVP PRN ×2 (15:03→23:28)
[2021-05-15 16:03] VITALS: BP 127/48
[2021-05-15 20:13] VITALS: BP 131/64
[2021-05-15] MEDS: ATORVASTATIN CALCIUM 40 MG TABLET PO SCH (21:35)
[2021-05-16] VITALS (8 sets, daily range): BP systolic 107–144; BP diastolic 50–87
[2021-05-16] MEDS: HEPARIN SODIUM 25000 UNITS/D5W 250 ML IV PRN ×2 (02:43→17:34)
[2021-05-16] MEDS: AMIODARONE HCL 200 MG TABLET PO SCH ×2 (08:19→20:58)
[2021-05-16] MEDS: METOPROLOL TARTRATE 50 MG TABLET PO SCH ×2 (08:19→20:58)
[2021-05-16] MEDS: AmLODIPine BESYLATE 5 MG TABLET PO SCH ×2 (08:20→20:58)
[2021-05-16] MEDS: FUROSEMIDE 20 MG/2 ML VIAL IVP SCH (08:20)
[2021-05-16] MEDS: DOCUSATE SODIUM 100 MG CAPSULE PO SCH ×2 (08:22→20:58)
[2021-05-16 10:28] LABS: ALBUMIN 2.7 g/dL (3.4-5.0); BILIRUBIN,TOTAL 0.7 mg/dL (0.1-1.0); CALCIUM, TOTAL 8.9 mg/dL (8.8-10.5); CREATININE 2.15 mg/dL (0.60-1.30); EOSINOPHILS % (AUTO) 2.9 % (1.0-6.0); HEMATOCRIT 38.9 % (41-53); HEMOGLOBIN 12.7 g/dL (13.5-17.5); LYMPHOCYTES # (AUTO) 1.4 K/uL (1.0-4.8); LYMPHOCYTES % (AUTO) 14.5 % (22.0-44.0); MAGNESIUM 2.6 mg/dL (1.80-2.40); MEAN CORPUSCULAR HEMOGLOBIN 29.7 pg (26.0-34.0); MEAN CORPUSCULAR HGB CONC 32.7 G/dL (31.0-37.0); MEAN CORPUSCULAR VOLUME 91 fL (80-100); MONOCYTES # (AUTO) 0.7 K/uL (0.1-1.0); MONOCYTES % (AUTO) 6.6 % (2.0-9.0); NEUTROPHILS # (AUTO) 7.5 K/uL (1.8-7.7); PLATELET COUNT (AUTO) 172 K/uL (150-450); POTASSIUM 3.9 mmol/L (3.5-5.1); RED BLOOD CELL COUNT(AUTO) 4.28 MIL/uL (4.50-5.90); RED CELL DISTRIBUTION WIDTH 16.3 % (11.5-14.5); TOTAL PROTEIN, SERUM 6.8 g/dL (6.4-8.2)
[2021-05-16] MEDS: CefTRIAXone SODIUM 2 GM in DEXTROSE 5%-WATER 50 ML IV SCH (13:40)
[2021-05-16 15:56] LABS: CALCIUM, TOTAL 8.6 mg/dL (8.8-10.5); CREATININE 2.13 mg/dL (0.60-1.30); POTASSIUM 4.7 mmol/L (3.5-5.1)
[2021-05-16] MEDS: ATORVASTATIN CALCIUM 40 MG TABLET PO SCH (20:58)
[2021-05-17] MEDS: HEPARIN SODIUM 25000 UNITS/D5W 250 ML IV PRN ×3 (04:57→18:37)
[2021-05-17 05:13] VITALS: BP 123/66
[2021-05-17 07:43] VITALS: BP 110/58
[2021-05-17] MEDS: CefTRIAXone SODIUM 2 GM in DEXTROSE 5%-WATER 50 ML IV SCH (08:24)
[2021-05-17] MEDS: AmLODIPine BESYLATE 5 MG TABLET PO SCH ×2 (08:25→20:04)
[2021-05-17] MEDS: METOPROLOL TARTRATE 50 MG TABLET PO SCH ×2 (08:25→20:03)
[2021-05-17] MEDS: DOCUSATE SODIUM 100 MG CAPSULE PO SCH ×2 (08:26→21:00)
[2021-05-17] MEDS: AMIODARONE HCL 200 MG TABLET PO SCH ×2 (08:26→20:03)
[2021-05-17 08:28] VITALS: BP 123/76
[2021-05-17] MEDS ORDERED: FUROSEMIDE 20 MG/2 ML VIAL IVP SCH (09:00)
[2021-05-17] MEDS ORDERED: 0.9% SODIUM CHLORIDE 5 ML NEB SOLUTION NEB ONE ×2 (11:30→21:55)
[2021-05-17] MEDS: ALBUTEROL SULFATE 2.5 MG/0.5 ML NEB SOLUTION NEB PRN ×2 (11:32→21:56)
[2021-05-17 11:50] LABS: BASOPHILS % (AUTO) 1.2 % (0.0-2.0); EOSINOPHILS % (AUTO) 2.4 % (1.0-6.0); HEMATOCRIT 41.2 % (41-53); HEMOGLOBIN 13.4 g/dL (13.5-17.5); LYMPHOCYTES % (AUTO) 14.1 % (22.0-44.0); MEAN CORPUSCULAR HEMOGLOBIN 29.7 pg (26.0-34.0); MEAN CORPUSCULAR HGB CONC 32.4 G/dL (31.0-37.0); MEAN CORPUSCULAR VOLUME 92 fL (80-100); MONOCYTES % (AUTO) 7.3 % (2.0-9.0); NEUTROPHILS # (AUTO) 10.5 K/uL (1.8-7.7); PLATELET COUNT (AUTO) 239 K/uL (150-450); RED CELL DISTRIBUTION WIDTH 16.3 % (11.5-14.5)
[2021-05-17 12:03] VITALS: BP 130/59
[2021-05-17 12:15] LABS: ALBUMIN 2.8 g/dL (3.4-5.0); BILIRUBIN,TOTAL 0.8 mg/dL (0.1-1.0); CALCIUM, TOTAL 8.8 mg/dL (8.8-10.5); CREATININE 2.43 mg/dL (0.60-1.30); POTASSIUM 4.7 mmol/L (3.5-5.1); TOTAL PROTEIN, SERUM 7.7 g/dL (6.4-8.2)
[2021-05-17 12:55] LABS: PLATELET MORPHOLOGY COMMENT GIANT PLTS PRESENT
[2021-05-17 15:16] VITALS: BP 141/73
[2021-05-17 19:45] VITALS: BP 135/68
[2021-05-17] MEDS: ATORVASTATIN CALCIUM 40 MG TABLET PO SCH (20:04)
[2021-05-17] MEDS: FUROSEMIDE 20 MG/2 ML VIAL IVP SCH (20:04)
[2021-05-18] VITALS: BP 120/66
[2021-05-18] MEDS: ACETAMINOPHEN 325 MG TABLET PO PRN ×2 (04:35→09:06)
[2021-05-18 04:51] VITALS: BP 119/52
[2021-05-18] MEDS: HEPARIN SODIUM 25000 UNITS/D5W 250 ML IV PRN (05:27)
[2021-05-18 07:25] VITALS: BP 118/63
[2021-05-18] MEDS: AmLODIPine BESYLATE 5 MG TABLET PO SCH (08:58)
[2021-05-18] MEDS: METOPROLOL TARTRATE 50 MG TABLET PO SCH (08:59)
[2021-05-18] MEDS: AMIODARONE HCL 200 MG TABLET PO SCH (08:59)
[2021-05-18] MEDS: FUROSEMIDE 20 MG/2 ML VIAL IVP SCH (09:00)
[2021-05-18] MEDS: DOCUSATE SODIUM 100 MG CAPSULE PO SCH (09:00)
[2021-05-18 11:23] VITALS: BP 118/76
[2021-05-18] MEDS: ALBUTEROL SULFATE 2.5 MG/0.5 ML NEB SOLUTION NEB PRN (12:23)
[2021-05-18 13:34] LABS: BASOPHILS % (AUTO) 0.7 % (0.0-2.0); EOSINOPHILS % (AUTO) 1.5 % (1.0-6.0); HEMOGLOBIN 13.8 g/dL (13.5-17.5); LYMPHOCYTES # (AUTO) 2.4 K/uL (1.0-4.8); LYMPHOCYTES % (AUTO) 15.5 % (22.0-44.0); MEAN CORPUSCULAR HEMOGLOBIN 29.9 pg (26.0-34.0); MEAN CORPUSCULAR HGB CONC 32.2 G/dL (31.0-37.0); MEAN CORPUSCULAR VOLUME 93 fL (80-100); MONOCYTES # (AUTO) 1.4 K/uL (0.1-1.0); MONOCYTES % (AUTO) 9.4 % (2.0-9.0); NEUTROPHILS # (AUTO) 11.1 K/uL (1.8-7.7); NEUTROPHILS % (AUTO) 72.9 % (40.0-70.0); RED BLOOD CELL COUNT(AUTO) 4.62 MIL/uL (4.50-5.90); RED CELL DISTRIBUTION WIDTH 16.4 % (11.5-14.5)
[2021-05-18 13:35] LABS: PLATELET COUNT (AUTO) 230 K/uL (150-450)
[2021-05-18 13:36] LABS: PLATELET MORPHOLOGY COMMENT GIANT PLTS PRESENT
[2021-05-18 14:01] LABS: ALBUMIN 2.8 g/dL (3.4-5.0); BILIRUBIN,TOTAL 0.9 mg/dL (0.1-1.0); CALCIUM, TOTAL 8.7 mg/dL (8.8-10.5); CREATININE 2.34 mg/dL (0.60-1.30); MAGNESIUM 2.9 mg/dL (1.80-2.40); PHOSPHORUS 5.7 mg/dL (2.5-4.9); TOTAL PROTEIN, SERUM 7.5 g/dL (6.4-8.2)
== END 2021-05-18 15:10 | disposition short-term general hospital (02) | DRG 287 ==
LOC: EMS 07:13 → 5S 20:52 → 5N 05-05 07:20 → 5S 05-13 17:05
PROVIDERS: ADMIT Internal Medicine; ATTEND Internal Medicine
PROC: 4A023N8 Measurement of Cardiac Sampling and Pressure, Bilateral, Percutaneous Approach (ICD-10-PCS; principal; 2021-05-09)
PROC: B2111ZZ Fluoroscopy of Multiple Coronary Arteries using Low Osmolar Contrast (ICD-10-PCS; 2021-05-09)
PROC: 05HY33Z Insertion of Infusion Device into Upper Vein, Percutaneous Approach (ICD-10-PCS; 2021-05-09)
PROC: B54MZZA Ultrasonography of Right Upper Extremity Veins, Guidance (ICD-10-PCS; 2021-05-09)
DX: I35.1 Nonrheumatic aortic (valve) insufficiency (principal); I13.0 Hypertensive heart and chronic kidney disease with heart failure and stage 1 through stage 4 chronic kidney disease, or unspecified chronic kidney disease; E87.1 Hypo-osmolality and hyponatremia; N17.9 Acute kidney failure, unspecified; I50.9 Heart failure, unspecified; I27.20 Pulmonary hypertension, unspecified; E78.5 Hyperlipidemia, unspecified; E03.9 Hypothyroidism, unspecified; F41.1 Generalized anxiety disorder; R73.9 Hyperglycemia, unspecified; I48.0 Paroxysmal atrial fibrillation; Z20.822 Contact with and (suspected) exposure to COVID-19; Z96.641 Presence of right artificial hip joint; N18.32 Chronic kidney disease, stage 3b; E78.00 Pure hypercholesterolemia, unspecified; Z79.01 Long term (current) use of anticoagulants; Z79.82 Long term (current) use of aspirin; Z95.2 Presence of prosthetic heart valve; Z79.899 Other long term (current) drug therapy; Z88.8 Allergy status to other drugs, medicaments and biological substances; Z88.0 Allergy status to penicillin
CPT/HCPCS: 36245; 36569; 36600; 71045; 76770; 76937; 80048; 80053; 81003; 82043; 82271; 82570; 82805; 83605; 83735; 83880; 84100; 84145; 84156; 84300; 84443; 84484; 84540; 85025; 85610; 85730; 86611; 86631; 86632; 86638; 87040; 87449; 87899; 93005; 93306; 93312; 93460; 93970; 93971; 94640; 99291; J0282; J0696; J1644; J1940; J2250; J3010; J3490; J3535; J7030; J7050; J7060; Q9967; 36415-L1; 36415-TC; J7613; U0003

== ENCOUNTER 2021-06-01 11:45 | Emergency (ER) | payer OTHER ==
[~2021-06-01] VITALS: Ht 172.7 cm; Wt 104.5 kg
[~2021-06-01 11:45] MED LIST changes: -AMLO-258 PO; +LEVO100 PO; -LEVO50 PO
[2021-06-01 13:49] LABS: BASOPHILS % (AUTO) 0.7 % (0.0-2.0); EOSINOPHILS % (AUTO) 5.9 % (1.0-6.0); HEMATOCRIT 34.2 % (41-53); HEMOGLOBIN 11.3 g/dL (13.5-17.5); LYMPHOCYTES % (AUTO) 12.2 % (22.0-44.0); MEAN CORPUSCULAR HEMOGLOBIN 29.8 pg (26.0-34.0); MEAN CORPUSCULAR HGB CONC 33.1 G/dL (31.0-37.0); MEAN CORPUSCULAR VOLUME 90 fL (80-100); MONOCYTES # (AUTO) 0.7 K/uL (0.1-1.0); MONOCYTES % (AUTO) 8.2 % (2.0-9.0); NEUTROPHILS # (AUTO) 6.3 K/uL (1.8-7.7); PLATELET COUNT (AUTO) 427 K/uL (150-450); RED CELL DISTRIBUTION WIDTH 17.2 % (11.5-14.5)
[2021-06-01 13:56] LABS: ANION GAP 9 mmol/L (8-16); CALCIUM, TOTAL 8.8 mg/dL (8.8-10.5); CARBON DIOXIDE 31 mmol/L (22-29); CHLORIDE 105 mmol/L (98-107); CREATININE 1.31 mg/dL (0.60-1.30); GLUCOSE,RANDOM 84 mg/dL (70-110); POTASSIUM 4.7 mmol/L (3.5-5.1); SODIUM SERUM 145 mmol/L (136-145); UREA NITROGEN, BLOOD 15 mg/dL (7-18)
[2021-06-01 14:10] LABS: GLOMERULAR FILTR. RATE CALC > 60 mL/min (>60)
[2021-06-01 14:21] LABS: ALANINE AMINOTRANSFERASE 30 U/L (12-78); ALBUMIN 2.9 g/dL (3.4-5.0); ALKALINE PHOSPHATASE 91 U/L (46-116); ASPARTATE AMINOTRANSFERASE 22 U/L (15-37); BILIRUBIN,TOTAL 0.6 mg/dL (0.1-1.0); CREATINE KINASE, TOTAL ONLY 82 U/L (39-308); TOTAL PROTEIN, SERUM 7.1 g/dL (6.4-8.2)
[2021-06-01] MEDS ORDERED: HydrALAZINE HCL 20 MG/ML VIAL IVP ONE (14:45)
[2021-06-01 15:55] VITALS: BP 155/111
== END 2021-06-01 16:19 | disposition home or self-care (01) ==
LOC: EMS 11:48
DX: I11.0 Hypertensive heart disease with heart failure (principal); I50.9 Heart failure, unspecified; I48.91 Unspecified atrial fibrillation; E03.9 Hypothyroidism, unspecified; E78.00 Pure hypercholesterolemia, unspecified; Z88.0 Allergy status to penicillin; Z88.8 Allergy status to other drugs, medicaments and biological substances; Z79.899 Other long term (current) drug therapy
CPT/HCPCS: 36415; 80053; 82550; 84484; 85025; 93005; 96374; 99284; J0360

== ENCOUNTER → 2021-06-06 | Outpatient (CLI) | payer OTHER ==
[2021-06-06 10:44] LABS: ALANINE AMINOTRANSFERASE 26 U/L (12-78); ALBUMIN 3.1 g/dL (3.4-5.0); ALKALINE PHOSPHATASE 111 U/L (46-116); ANION GAP 7 mmol/L (8-16); ASPARTATE AMINOTRANSFERASE 16 U/L (15-37); BILIRUBIN,TOTAL 0.8 mg/dL (0.1-1.0); CARBON DIOXIDE 32 mmol/L (22-29); CHLORIDE 104 mmol/L (98-107); CHOL/HDL RATIO 3.2 (4.2-7.3); CHOLESTEROL 127 mg/dL (131-200); CREATININE 1.35 mg/dL (0.60-1.30); GLUCOSE,RANDOM 139 mg/dL (70-110); HDL CHOLESTEROL 40 mg/dL (40-60); LDL CHOL (CALC.) 72 mg/dL (0-130); SODIUM SERUM 143 mmol/L (136-145); THYROID STIMULATING HORMONE 7.09 uIU/mL (0.36-3.74); TOTAL PROTEIN, SERUM 7.7 g/dL (6.4-8.2); TRIGLYCERIDES 75 mg/dL (15-150); UREA NITROGEN, BLOOD 18 mg/dL (7-18)
[2021-06-06 10:45] LABS: GLOMERULAR FILTR. RATE CALC > 60 mL/min (>60)
== END | disposition home or self-care (01) ==
LOC: LABPV 08:29
PROVIDERS: ATTEND Internal Medicine
DX: I13.0 Hypertensive heart and chronic kidney disease with heart failure and stage 1 through stage 4 chronic kidney disease, or unspecified chronic kidney disease (principal); N18.32 Chronic kidney disease, stage 3b; E78.5 Hyperlipidemia, unspecified; I82.502 Chronic embolism and thrombosis of unspecified deep veins of left lower extremity; M10.9 Gout, unspecified; D68.69 Other thrombophilia
CPT/HCPCS: 80053; 80061; 83036; 84443

== ENCOUNTER → 2021-07-04 | Outpatient (CLI) | payer OTHER ==
[2021-07-04 10:37] LABS: ANION GAP 10 mmol/L (8-16); CALCIUM, TOTAL 8.8 mg/dL (8.8-10.5); CARBON DIOXIDE 29 mmol/L (22-29); CHLORIDE 103 mmol/L (98-107); CREATININE 1.14 mg/dL (0.60-1.30); GLOMERULAR FILTR. RATE CALC > 60 mL/min (>60); GLUCOSE,RANDOM 112 mg/dL (70-110); POTASSIUM 3.6 mmol/L (3.5-5.1); SODIUM SERUM 142 mmol/L (136-145); THYROID STIMULATING HORMONE 2.92 uIU/mL (0.36-3.74); UREA NITROGEN, BLOOD 16 mg/dL (7-18)
== END | disposition home or self-care (01) ==
LOC: LABPV 09:13
PROVIDERS: ATTEND Internal Medicine
DX: I13.0 Hypertensive heart and chronic kidney disease with heart failure and stage 1 through stage 4 chronic kidney disease, or unspecified chronic kidney disease (principal); N18.32 Chronic kidney disease, stage 3b; I50.9 Heart failure, unspecified; I82.502 Chronic embolism and thrombosis of unspecified deep veins of left lower extremity; E78.5 Hyperlipidemia, unspecified; D68.69 Other thrombophilia; R94.6 Abnormal results of thyroid function studies
CPT/HCPCS: 80048; 84443

== ENCOUNTER → 2021-08-01 | Outpatient (CLI) | payer OTHER ==
[2021-08-01 12:10] LABS: BASOPHILS % (AUTO) 0.2 % (0.0-2.0); EOSINOPHILS % (AUTO) 1.1 % (1.0-6.0); HEMATOCRIT 39.9 % (41-53); HEMOGLOBIN 12.9 g/dL (13.5-17.5); LYMPHOCYTES # (AUTO) 1.7 K/uL (1.0-4.8); LYMPHOCYTES % (AUTO) 27.1 % (22.0-44.0); MEAN CORPUSCULAR HEMOGLOBIN 28.4 pg (26.0-34.0); MEAN CORPUSCULAR HGB CONC 32.3 G/dL (31.0-37.0); MEAN CORPUSCULAR VOLUME 88 fL (80-100); MONOCYTES # (AUTO) 0.6 K/uL (0.1-1.0); MONOCYTES % (AUTO) 9.8 % (2.0-9.0); NEUTROPHILS # (AUTO) 3.9 K/uL (1.8-7.7); NEUTROPHILS % (AUTO) 61.8 % (40.0-70.0); PLATELET COUNT (AUTO) 142 K/uL (150-450); RED BLOOD CELL COUNT(AUTO) 4.54 MIL/uL (4.50-5.90); RED CELL DISTRIBUTION WIDTH 16.3 % (11.5-14.5)
[2021-08-01 12:39] LABS: ALANINE AMINOTRANSFERASE 18 U/L (12-78); ALBUMIN 3.5 g/dL (3.4-5.0); ALKALINE PHOSPHATASE 83 U/L (46-116); ANION GAP 4 mmol/L (8-16); ASPARTATE AMINOTRANSFERASE 19 U/L (15-37); BILIRUBIN,TOTAL 0.3 mg/dL (0.1-1.0); CARBON DIOXIDE 31 mmol/L (22-29); CHLORIDE 107 mmol/L (98-107); CREATININE 1.05 mg/dL (0.60-1.30); GLOMERULAR FILTR. RATE CALC > 60 mL/min (>60); GLUCOSE,RANDOM 113 mg/dL (70-110); POTASSIUM 3.9 mmol/L (3.5-5.1); SODIUM SERUM 142 mmol/L (136-145); THYROID STIMULATING HORMONE 3.57 uIU/mL (0.36-3.74); TOTAL PROTEIN, SERUM 7.6 g/dL (6.4-8.2); UREA NITROGEN, BLOOD 24 mg/dL (7-18)
[2021-08-01 13:10] LABS: B-TYPE NATRIURETIC PEPTIDE 704 pg/mL (0-100)
== END | disposition home or self-care (01) ==
LOC: MSR 09:23
PROVIDERS: ATTEND Internal Medicine
DX: I13.0 Hypertensive heart and chronic kidney disease with heart failure and stage 1 through stage 4 chronic kidney disease, or unspecified chronic kidney disease (principal); N18.9 Chronic kidney disease, unspecified; I50.9 Heart failure, unspecified; I82.502 Chronic embolism and thrombosis of unspecified deep veins of left lower extremity; J44.9 Chronic obstructive pulmonary disease, unspecified; I70.0 Atherosclerosis of aorta; Q25.46 Tortuous aortic arch; Z98.890 Other specified postprocedural states
CPT/HCPCS: 71046; 80053; 83880; 84443; 85025; 36415-L1; 36415-TC

== ENCOUNTER → 2021-08-25 | Outpatient (CLI) | payer OTHER ==
[~2021-08-25] MED LIST changes: -DOCU-270 PO; +DOCU-385 PO
== END | disposition home or self-care (01) ==
LOC: RADPV 10:01
PROVIDERS: ATTEND Internal Medicine
DX: M16.12 Unilateral primary osteoarthritis, left hip (principal); M25.552 Pain in left hip; Z96.641 Presence of right artificial hip joint
CPT/HCPCS: 73503

== ENCOUNTER → 2021-09-15 | Outpatient (CLI) | payer OTHER ==
[2021-09-15 10:10] LABS: ALANINE AMINOTRANSFERASE 22 U/L (12-78); ALBUMIN 3.7 g/dL (3.4-5.0); ALKALINE PHOSPHATASE 98 U/L (46-116); ANION GAP 8 mmol/L (8-16); ASPARTATE AMINOTRANSFERASE 18 U/L (15-37); BILIRUBIN,TOTAL 0.5 mg/dL (0.1-1.0); CALCIUM, TOTAL 8.5 mg/dL (8.8-10.5); CARBON DIOXIDE 29 mmol/L (22-29); CHLORIDE 104 mmol/L (98-107); CREATININE 1.15 mg/dL (0.60-1.30); GLOMERULAR FILTR. RATE CALC > 60 mL/min (>60); GLUCOSE,RANDOM 144 mg/dL (70-110); POTASSIUM 3.6 mmol/L (3.5-5.1); SODIUM SERUM 141 mmol/L (136-145); THYROID STIMULATING HORMONE 2.07 uIU/mL (0.36-3.74); TOTAL PROTEIN, SERUM 7.8 g/dL (6.4-8.2); UREA NITROGEN, BLOOD 16 mg/dL (7-18)
== END | disposition home or self-care (01) ==
LOC: LABPV 09:09
PROVIDERS: ATTEND Internal Medicine
DX: I50.22 Chronic systolic (congestive) heart failure (principal); N18.32 Chronic kidney disease, stage 3b; I48.92 Unspecified atrial flutter; E78.5 Hyperlipidemia, unspecified
CPT/HCPCS: 80053; 84443

== ENCOUNTER → 2021-11-30 | Outpatient (CLI) | payer OTHER ==
[2021-11-30 09:58] LABS: BASOPHILS % (AUTO) 0.6 % (0.0-2.0); EOSINOPHILS % (AUTO) 2.1 % (1.0-6.0); HEMATOCRIT 47.2 % (41-53); HEMOGLOBIN 15.5 g/dL (13.5-17.5); LYMPHOCYTES # (AUTO) 1.8 K/uL (1.0-4.8); LYMPHOCYTES % (AUTO) 28.6 % (22.0-44.0); MEAN CORPUSCULAR HEMOGLOBIN 29.7 pg (26.0-34.0); MEAN CORPUSCULAR HGB CONC 32.9 G/dL (31.0-37.0); MEAN CORPUSCULAR VOLUME 90 fL (80-100); MONOCYTES # (AUTO) 0.5 K/uL (0.1-1.0); MONOCYTES % (AUTO) 8.3 % (2.0-9.0); NEUTROPHILS # (AUTO) 3.7 K/uL (1.8-7.7); NEUTROPHILS % (AUTO) 60.4 % (40.0-70.0); PLATELET COUNT (AUTO) 174 K/uL (150-450); RED BLOOD CELL COUNT(AUTO) 5.22 MIL/uL (4.50-5.90); RED CELL DISTRIBUTION WIDTH 16.6 % (11.5-14.5)
[2021-11-30 10:15] LABS: APPEARANCE,URINE CLEAR (CLEAR); BILIRUBIN,URINE NEGATIVE (NEGATIVE); GLUCOSE, URINE (UA) NEGATIVE (NEGATIVE); KETONES,URINE NEGATIVE (NEGATIVE); LEUKOCYTE ESTERASE ,URINE NEGATIVE (NEGATIVE); NITRATE,URINE NEGATIVE (NEGATIVE); OCCULT BLOOD,URINE NEGATIVE (NEGATIVE); PROTEIN,URINE 30-70 mg/dL (NEGATIVE); SPECIFIC GRAVITIY, URINE 1.016 (1.003-1.030); UROBILINOGEN,URINE <=1.0 mg/dL (<=1.0)
[2021-11-30 10:26] LABS: PROTHROMBIN TIME 10.5 SEC (9.4-11.6)
[2021-11-30 10:29] LABS: ALBUMIN 3.8 g/dL (3.4-5.0); CHOL/HDL RATIO 2.9 (4.2-7.3); CREATININE 1.49 mg/dL (0.60-1.30); THYROID STIMULATING HORMONE 2.3 uIU/mL (0.36-3.74); TOTAL PROTEIN, SERUM 8.1 g/dL (6.4-8.2)
[2021-11-30 10:29] LABS: BACTERIA,URINE None Seen /HPF (None Seen); RBC,URINE None Seen /HPF (0-2); WBC,URINE None Seen /HPF (0-5)
[2021-11-30 10:39] LABS: BILIRUBIN,TOTAL 0.5 mg/dL (0.1-1.0)
== END | disposition home or self-care (01) ==
LOC: LABMN 09:26
PROVIDERS: ATTEND Internal Medicine
DX: Z01.810 Encounter for preprocedural cardiovascular examination (principal); I13.0 Hypertensive heart and chronic kidney disease with heart failure and stage 1 through stage 4 chronic kidney disease, or unspecified chronic kidney disease; I50.22 Chronic systolic (congestive) heart failure; N18.9 Chronic kidney disease, unspecified; E78.5 Hyperlipidemia, unspecified; Z95.4 Presence of other heart-valve replacement
CPT/HCPCS: 80053; 80061; 81001; 84443; 85025; 85610; 85730